=== PATIENT | male | born 1955 | race Caucasian/White ===

== ENCOUNTER 2019-06-26 13:12 | Outpatient (CLI) | payer MEDICARE, OTHER, SELFPAY | END 2019-06-26 13:13 | disposition home or self-care (01) | LOC: ONCMED 13:12 | PROVIDERS: Visit Provider Internal Medicine Medical Oncology | DX: Z45.2 Encounter for adjustment and management of vascular access device (principal) | CPT/HCPCS: 96523 ==

== ENCOUNTER 2019-07-28 11:08 | Outpatient (CLI) | payer MEDICARE, OTHER, SELFPAY ==
[2019-07-28 11:46] LABS: Basophils # 0.1 10^3/uL (0.0-0.1); Basophils % 1.3 %; Eosinophils # 1.3 10^3/uL (0.0-0.8); Eosinophils % 18.2 %; Hematocrit 39.8 % (42.0-52.0); Hemoglobin 13.5 g/dL (11.7-16.6); Lymphocytes # 1.8 10^3/uL (0.8-4.8); Lymphocytes % 26.1 %; Mean Corpuscular HGB Conc 33.9 g/dL (30.0-36.0); Mean Corpuscular Hemoglobin 31.3 pg (28.0-34.0); Mean Corpuscular Volume 92.1 fL (80-94); Mean Platelet Volume 12.5 fL (7.4-10.4); Monocytes # 0.6 10^3/uL (0.2-0.9); Neutrophils # 3.1 10^3/uL (1.8-7.7); Neutrophils % 45.1 %; Nucleated Red Blood Cells % 0 %; Platelet Count 94 10^3/cmm (130-400); Red Blood Count 4.32 10^6/uL (4.1-5.3); Red Cell Distribution Width 12.3 % (12.1-15.1); White Blood Count 6.9 10^3/uL (4.0-10.0)
[2019-07-28 11:52] LABS: Alanine Aminotransferase 21 U/L (0-41); Albumin Level 3.8 g/dL (3.5-5.2); Alkaline Phosphatase 118 IU/L (40-130); Anion Gap 15.3 (5-19); Aspartate Amino Transferase 19 U/L (0-40); Blood Urea Nitrogen 24 mg/dL (8-23); Calcium 9.1 mg/dL (8.5-10.5); Carbon Dioxide 24 mmol/L (22-29); Chloride 102 mmol/L (98-107); Globulin 3.1 g/dL (1.3-4.6); Glomerular Filtration Rate 50.7 mL/min (90-130); Glucose 87 mg/dL (65-115); Potassium 4.3 mmol/L (3.5-5.1); Sodium 137 mmol/L (136-145); Total Bilirubin 0.4 mg/dL (0.15-1.2); Total Protein 6.9 g/dL (6.6-8.7)
[2019-07-28 12:18] LABS: Slide Review Slide Review Perform
[2019-07-28 12:40] LABS: Carcinoembryonic Antigen 3.3 ng/mL (0.0-4.7)
--- NOTE | 2019-07-29 06:56 | ONC FU_ITS ---
Dr. Lyman Patient Follow-Up Note Patient: Elio Squires Unit #: [id number]: 1955 Dicatated By: Mario Lyman M.D.Date of Visit:Jul 28, 2019 Onc Med Follow-up/Prog Note Chief Complaint: Rectal cancer. History of Present Illness: This is a 64 year-old man with metastatic rectal cancer, stage KAITLIN (ypT3, ypN0, ypM1a). Microsatellite instability studies were performed and his tumor showed normal expression of DNA mismatch repair proteins. He had multiple liver metastases at initial presentation in September of 2008. He had a very good response to initial chemotherapy with FOLFOX/Avastin. In February of 2009 he underwent laparoscopic low anterior resection with left hepatic lobectomy. Pathology showed invasive moderately differentiated adenocarcinoma of the rectum which was invading through the muscularis propria into the subserosa more than 5 mm beyond the border of the muscularis propria. It measured 3 x 2.5 x 0.6 cm. There was no involvement in 29 lymph nodes. The left hepatic lobectomy showed metastatic colonic adenocarcinoma. He did receive additional chemotherapy postoperatively, and he also underwent additional treatment to the liver, which included microwave ablation and wedge resection. He subsequently underwent several chemoembolization procedures. He started second line chemotherapy with FOLFIRI/Avastin in April of 2011 after he was again showing evidence of disease progression in the liver. He had a good response by CEA level and by followup CT scan. We had subsequently changed his treatment to an irinotecan/Xeloda regimen, still in combination with Avastin. He did have a dose reduction in the Xeloda with the second cycle due to diarrhea and hand/foot syndrome. He had then tolerated treatment well with the irinotecan dosed every 4 weeks and the Xeloda administered on a 7 days on/7 days off schedule. However, he eventually did have more side effects with the Xeloda, even with further dose reductions. As of September 2013 the Xeloda was omitted, and he then continued treatment with irinotecan every 4 weeks and Avastin on a 2-week dosing schedule. His restaging CT chest, abdomen, and pelvis on 11/03/2016 reported new subcentimeter noncalcified pulmonary nodules in the upper lobes bilaterally which were new from a prior study in 2008. The abdomen showed a right lateral hepatic sub-capsular 14 mm low-attenuation lesion of uncertain significance. Metastasis could not be excluded. There was no other evidence of disease progression, and he continued the same treatment. He began cycle 55 of irinotecan/Avastin on 01/02/2017. At that time we discussed options for his further treatment. Given his long period of stability, we opted to stop the chemotherapy and just continue treatment with single agent Avastin at a 3-week dosing interval. He began the first cycle of single agent Avastin on 01/16/2017. He then continued the Avastin on a 3-week dosing schedule. His treatment has been complicated by hypertension, which is being managed adequately with medication. He has no other underlying medical illnesses. INTERIM HISTORY: Restaging CT scans of the chest, abdomen, and pelvis on 10/11/2017 showed multilobar calcified and noncalcified pulmonary nodules which appeared stable compared to a previous study from November 2015. There was evidence of prior partial hepatectomy with no interval change. A hypodensity in the subcapsular right hepatic lobe appeared stable. Overall, there was no evidence of disease progression. He continued his treatment with single agent Avastin. Beginning in August 2017 there was an increase in his creatinine to 1.3 mg/dL, and it continued to gradually increase thereafter, up to a maximum 1.6 mg/dL on 12/10/2017, at which point his Avastin was put on hold. His blood pressure during that time had been well controlled. As of 03/27/2018 the creatinine was back down to 1.3 mg/dL. His CEA was stable at 2.5 ng/mL. However, at that point there was a significant increase in his liver enzymes. His CT abdomen/pelvis on 04/03/2018 showed no evidence of recurrent or metastatic disease, and he continued on observation/expectant management. During subsequent follow-up there was a slight further increase in the CEA level, but his clinical status remained stable and the CEA level had subsequently stabilized. He is seen for a follow-up visit. He has been feeling good generally. He has good energy and he has normal activity. His appetite has been good. He has had a significant weight gain, in the range of 10 pounds. He does not have fever or night sweats. He has no shortness of breath, cough, or chest pain. He does report that his feet sometimes swell. He has no GI or complaints. He has no significant joint or bone pain. He has no focal neurologic symptoms. Medications: Aspirin 1 (81 mg) Tablet Oral daily, Lisinopril 1 Tablet (of 40 mg) Oral daily, Metoprolol Tartrate 1 (50 mg) Tablet Oral b.i.d., Omeprazole 1 Tablet (of 20 mg) Tablet, enteric coated Oral daily Allergies: No Known Allergies. Review of Systems: Constitutional - He has good energy and he has normal activity. Appetite has been good. He has been gaining weight. He does not have fever or night sweats. ECOG score is 0, ENMT - No sinus congestion/drainage. No mouth sores. No sore throat or difficulty swallowing, Hematologic/Lymphatic - No abnormal bruising or bleeding, Respiratory - No shortness of breath. No cough. No pleuritic pain or hemoptysis, Cardiovascular - No angina pain. No palpitations. His feet swell up sometimes, Gastrointestinal - No nausea or vomiting. No heartburn or acid reflux. No diarrhea or constipation. No blood in the stool or black stools, Genitourinary (M) - No dysuria or hematuria. No urinary frequency. No urgency or incontinence, Musculoskeletal - No joint or bone pain, Integumentary - No skin complications, Neurologic - No headache or dizziness. No numbness/paresthesias or other focal neurologic symptoms, Psychiatric - No anxiety or depression. No insomnia. Vital Signs: Performed on Jul 28, 2019 12:18 Height - 68.00 in Weight - 216.4 lbs (HIGH) BSA - 2.11 sq.m BMI - 32.90 (HIGH) Temperature - 97.3 F (LOW) Pulse - 64 /min Respiration - 17 /min BP - 147/89 mm(hg) (HIGH) O2 Sat - 99 % Pain - 0 Physical Examination: Constitutional - He looks good generally, Eyes - Sclerae nonicteric. Conjunctivae clear, ENMT - No lesions noted in the oral cavity, Hematologic/Lymphatic - No cervical, clavicular, or axillary adenopathy, Respiratory - Lungs are clear with good air movement bilaterally, Cardiovascular - Heart rhythm is regular. There is no murmur, gallop, or rub noted, Abdomen - Mildly distended but soft. Liver and spleen are not enlarged. There is no abdominal mass or ascites noted and there is no inguinal adenopathy, Extremities - No edema, Integumentary - There is a small raised lesion near the nasolabial fold on the right side there are 2 closely adjacent lesions with a similar appearance located on the left side of the chin. The lesions on the chin have slightly raised border, Neurologic - No focal neurologic deficits noted. Lab/Imaging: Test performed on Jul 28, 2019 11:27 Sodium 137 mmol/L Potassium 4.3 mmol/L Chloride 102 mmol/L CO2 24 mmol/L Anion Gap 15.3 BUN 24 mg/dL Creatinine 1.4 mg/dL Cr Clearance (Est) 72.06 mL/min eGFR 50.7 mL/min Glucose 87 mg/dL Calcium 9.1 mg/dL Protein, Total 6.9 g/dL Albumin 3.8 g/dL Globulin 3.1 g/dL Bilirubin, Total 0.4 mg/dL ALT (SGPT) 21 U/L AST (SGOT) 19 U/L Alkaline Phosphatase 118 IU/L WBC 6.9 10 3/uL RBC 4.32 10 6/uL HGB 13.5 g/dL HCT 39.8 % MCV 92.1 fL MCH 31.3 pg MCHC 33.9 g/dL RDW 12.3 % Platelet Count 94 10 3/cmm MPV 12.5 fL Neutrophils 3.1 10 3/uL Lymphocytes 1.8 10 3/uL Monocytes 0.6 10 3/uL Eosinophils 1.3 10 3/uL Basophils 0.1 10 3/uL Neutrophil % 45.1 % Lymphocyte % 26.1 % Monocyte % 9.0 % Eosinophil % 18.2 % Basophils % 1.3 % CBC Slide Review Slide Review Perform SLIDE REVIEW AGREES WITH AUTOMATED RESULTS ST CEA 3.3 ng/mL Impression: 1. The patient has metastatic rectal cancer, diagnosed in September 2008. He had a very good response to initial chemotherapy with FOLFOX/Avastin. 2. He underwent laparoscopic low anterior resection with left hepatic lobectomy in February 2009. Pathology showed moderately differentiated adenocarcinoma measuring 3 x 2.5 x 0.6 cm with invasion into the subserosa. There was no involvement in 29 lymph nodes. Final staging was ypT3, ypN0, ypM1a. 3. He received additional postoperative chemotherapy as well as liver directed therapy, including microwave ablation, wedge resection, and several chemoembolization procedures. 4. In April 2011 he began second line chemotherapy with FOLFIRI/Avastin due to disease progression in the liver. He did have a good response. 5. Treatment was changed to irinotecan/Xeloda in combination with Avastin due to side effects. He had tolerated it well initially, though he continued to have symptoms of hand/foot syndrome and diarrhea even at a reduced dosage of the Xeloda. The Xeloda was discontinued, and as of September 2013 his treatment was limited to just irinotecan and Avastin. 6. He developed significant hypertension on Avastin, but it has been well controlled on medication. As of 01/02/2017 he had completed 55 cycles of treatment with irinotecan/Avastin. His restaging CT scans in October 2016 reported some new small pulmonary nodules, but the comparison was to a previous study from 2008. Similar findings had been reported on interim studies done in [place] in June 2015. When compared directly, all of the findings on the 11/03/2016 study appeared stable. Given his long period of stability, we opted to drop the irinotecan and just continue treatment with single agent Avastin at a 3-week dosing interval, cycle 1 beginning 01/16/2017. As of 10/11/[address] scans had shown no evidence of recurrence/progression of the rectal cancer. However, beginning in August 2017 there was a gradual increase in his serum creatinine. It reached a maximum of 1.6 mg/dL on 12/10/2017, at which point his Avastin was put on hold. During this time, his blood pressure had remained well controlled, and his overall clinical status had remained stable. During subsequent follow-up there was improvement in his renal function. However, as of 03/27/2018 there was a significant increase in his liver enzymes. His CT abdomen/pelvis showed no obvious recurrent or metastatic disease, and he continued on observation/expectant management. As of his follow-up visit on 08/06/2018 the liver enzymes were elevated, but there was no increase in the CEA level and he otherwise appeared stable clinically. His liver enzymes subsequently came back down to normal. During follow-up his renal function remained stable. There was a slight gradual increase in the CEA level, but it had subsequently stabilized. Overall, he has continued to do well clinically with no evidence of recurrence/progression of the rectal cancer. Plan: He remains on observation/expectant management for the rectal cancer. He will be scheduled for a follow-up visit in 3 months. Signed By: Mario Lyman M.D. <<Signature on File>>
== END 2019-07-28 11:09 | disposition home or self-care (01) ==
LOC: ONCMED 11:08
PROVIDERS: Visit Provider Internal Medicine Medical Oncology
DX: Z08 Encounter for follow-up examination after completed treatment for malignant neoplasm (principal); Z85.048 Personal history of other malignant neoplasm of rectum, rectosigmoid junction, and anus; I10 Essential (primary) hypertension; R97.0 Elevated carcinoembryonic antigen [CEA]; Z79.82 Long term (current) use of aspirin; Z92.21 Personal history of antineoplastic chemotherapy
CPT/HCPCS: 36591; 80053; 82378; 85025; G0463

== ENCOUNTER 2019-08-25 13:29 | Outpatient (CLI) | payer MEDICARE, OTHER, SELFPAY | END 2019-08-25 13:30 | disposition home or self-care (01) | LOC: ONCMED 13:32 | PROVIDERS: Visit Provider Internal Medicine Medical Oncology | DX: Z45.2 Encounter for adjustment and management of vascular access device (principal) | CPT/HCPCS: 96523 ==

== ENCOUNTER 2019-09-22 12:52 | Outpatient (CLI) | payer MEDICARE, OTHER, SELFPAY | END 2019-09-22 12:53 | disposition home or self-care (01) | LOC: ONCMED 12:52 | PROVIDERS: Visit Provider Nurse Practitioner | DX: Z45.2 Encounter for adjustment and management of vascular access device (principal) | CPT/HCPCS: 36593; 96374; 96523; J2997 ==

== ENCOUNTER 2019-10-20 11:16 | Outpatient (CLI) | payer MEDICARE, OTHER, SELFPAY ==
[2019-10-20 11:48] LABS: Basophils # 0.1 10^3/uL (0.0-0.1); Eosinophils # 0.4 10^3/uL (0.0-0.8); Eosinophils % 5.7 %; Hematocrit 42.9 % (42.0-52.0); Hemoglobin 14.2 g/dL (11.7-16.6); Lymphocytes # 1.9 10^3/uL (0.8-4.8); Lymphocytes % 26.5 %; Mean Corpuscular HGB Conc 33.1 g/dL (30.0-36.0); Mean Corpuscular Hemoglobin 31.3 pg (28.0-34.0); Mean Corpuscular Volume 94.7 fL (80-94); Mean Platelet Volume 11.7 fL (7.4-10.4); Monocytes # 0.7 10^3/uL (0.2-0.9); Monocytes % 9.7 %; Nucleated Red Blood Cells % 0 %; Platelet Count 205 10^3/cmm (130-400); Red Blood Count 4.53 10^6/uL (4.1-5.3); Red Cell Distribution Width 12.2 % (12.1-15.1)
[2019-10-20 12:20] LABS: Carcinoembryonic Antigen 4.5 ng/mL (0.0-4.7)
[2019-10-20 12:31] LABS: Alanine Aminotransferase 23 U/L (0-41); Albumin Level 3.9 g/dL (3.5-5.2); Alkaline Phosphatase 119 IU/L (40-130); Anion Gap 14.7 (5-19); Aspartate Amino Transferase 20 U/L (0-40); Blood Urea Nitrogen 12 mg/dL (8-23); Calcium 9.7 mg/dL (8.5-10.5); Carbon Dioxide 24 mmol/L (22-29); Chloride 102 mmol/L (98-107); Globulin 3.3 g/dL (1.3-4.6); Glomerular Filtration Rate 60.6 mL/min (90-130); Glucose 92 mg/dL (65-115); Osmolality Calculated 278 mOsm/kg (285-295); Potassium 4.7 mmol/L (3.5-5.1); Sodium 136 mmol/L (136-145); Total Bilirubin 0.4 mg/dL (0.15-1.2); Total Protein 7.2 g/dL (6.6-8.7)
--- NOTE | 2019-10-20 17:16 | ONC FU_ITS ---
Dr. Lyman Patient Follow-Up Note Patient: Elio Squires Unit #: [id number]: [id number] Dicatated By: Mario Lyman M.D.Date of Visit:October 20, 2019 Onc Med Follow-up/Prog Note Chief Complaint: Rectal cancer. History of Present Illness: This is a 64 year-old man with metastatic rectal cancer, stage KAITLIN (ypT3, ypN0, ypM1a). Microsatellite instability studies were performed and his tumor showed normal expression of DNA mismatch repair proteins. He had multiple liver metastases at initial presentation in September of 2008. He had a very good response to initial chemotherapy with FOLFOX/Avastin. In February of 2009 he underwent laparoscopic low anterior resection with left hepatic lobectomy. Pathology showed invasive moderately differentiated adenocarcinoma of the rectum which was invading through the muscularis propria into the subserosa more than 5 mm beyond the border of the muscularis propria. It measured 3 x 2.5 x 0.6 cm. There was no involvement in 29 lymph nodes. The left hepatic lobectomy showed metastatic colonic adenocarcinoma. He did receive additional chemotherapy postoperatively, and he also underwent additional treatment to the liver, which included microwave ablation and wedge resection. He subsequently underwent several chemoembolization procedures. He started second line chemotherapy with FOLFIRI/Avastin in April of 2011 after he was again showing evidence of disease progression in the liver. He had a good response by CEA level and by followup CT scan. We had subsequently changed his treatment to an irinotecan/Xeloda regimen, still in combination with Avastin. He did have a dose reduction in the Xeloda with the second cycle due to diarrhea and hand/foot syndrome. He had then tolerated treatment well with the irinotecan dosed every 4 weeks and the Xeloda administered on a 7 days on/7 days off schedule. However, he eventually did have more side effects with the Xeloda, even with further dose reductions. As of September 2013 the Xeloda was omitted, and he then continued treatment with irinotecan every 4 weeks and Avastin on a 2-week dosing schedule. His restaging CT chest, abdomen, and pelvis on 11/03/2016 reported new subcentimeter noncalcified pulmonary nodules in the upper lobes bilaterally which were new from a prior study in 2008. The abdomen showed a right lateral hepatic sub-capsular 14 mm low-attenuation lesion of uncertain significance. Metastasis could not be excluded. There was no other evidence of disease progression, and he continued the same treatment. He began cycle 55 of irinotecan/Avastin on 01/02/2017. At that time we discussed options for his further treatment. Given his long period of stability, we opted to stop the chemotherapy and just continue treatment with single agent Avastin at a 3-week dosing interval. He began the first cycle of single agent Avastin on 01/16/2017. He then continued the Avastin on a 3-week dosing schedule. His treatment has been complicated by hypertension, which is being managed adequately with medication. He has no other underlying medical illnesses. INTERIM HISTORY: Restaging CT scans of the chest, abdomen, and pelvis on 10/11/2017 showed multilobar calcified and noncalcified pulmonary nodules which appeared stable compared to a previous study from November 2015. There was evidence of prior partial hepatectomy with no interval change. A hypodensity in the subcapsular right hepatic lobe appeared stable. Overall, there was no evidence of disease progression. He continued his treatment with single agent Avastin. Beginning in August 2017 there was an increase in his creatinine to 1.3 mg/dL, and it continued to gradually increase thereafter, up to a maximum 1.6 mg/dL on 12/10/2017, at which point his Avastin was put on hold. His blood pressure during that time had been well controlled. As of 03/27/2018 the creatinine was back down to 1.3 mg/dL. His CEA was stable at 2.5 ng/mL. However, at that point there was a significant increase in his liver enzymes. His CT abdomen/pelvis on 04/03/2018 showed no evidence of recurrent or metastatic disease, and he continued on observation/expectant management. During subsequent follow-up there was a slight further increase in the CEA level, but his clinical status remained stable and the CEA level had subsequently stabilized. He is seen for a follow-up visit. He has been feeling good generally. He has pretty good energy. He has normal activity. ECOG score 0. His appetite is good. He has no fever or night sweats. He does complain that his nose runs and his eyes water a lot. He has no difficulty swallowing. He has no shortness of breath, cough, or chest pain. He has occasional heartburn, depending on what he eats. He has no other GI or complaints. He is not having much joint pain. He does not complain of headache or dizziness. He says his fingers occasionally tingle. He has no other residual neuropathy symptoms. Medications: Aspirin 1 (81 mg) Tablet Oral daily, Lisinopril 1 Tablet (of 40 mg) Oral daily, Meloxicam 1 Tablet (of 7.5 mg) Oral PRN, Metoprolol Tartrate 1 (50 mg) Tablet Oral b.i.d., Omeprazole 1 Tablet (of 20 mg) Tablet, enteric coated Oral daily Allergies: No Known Allergies. Review of Systems: Constitutional - He is generally feeling good and his energy is good. He has normal activity. His appetite is good and weight is down a few pounds. No fever, chills, hot flashes, or night sweats. ECOG score is 0, ENMT - He has seasonal allergies. No mouth sores. No sore throat or difficulty swallowing, Hematologic/Lymphatic - No abnormal bruising or bleeding, Respiratory - No shortness of breath. No cough. No pleuritic pain or hemoptysis, Cardiovascular - No angina pain. No palpitations, Gastrointestinal - No nausea or vomiting. He has occasional heartburn. No diarrhea or constipation. No blood in the stool or black stools, Genitourinary (M) - No dysuria or hematuria. No urinary frequency. No urgency or incontinence, Musculoskeletal - No joint or bone pain, Integumentary - No skin complications, Neurologic - No headache or dizziness. He has occasional tingling in his fingers, Psychiatric - No anxiety or depression. No insomnia. Vital Signs: Performed on October 20, 2019 12:47 Height - 68.00 in Weight - 214.4 lbs (LOW) BSA - 2.11 sq.m BMI - 32.60 (HIGH) Temperature - 97.9 F (LOW) Pulse - 61 /min Respiration - 20 /min BP - 159/90 mm(hg) (HIGH) O2 Sat - 99 % Pain - 0 Physical Examination: Constitutional - He looks good generally, Eyes - Sclerae nonicteric. Conjunctivae clear, ENMT - No lesions noted in the oral cavity, Hematologic/Lymphatic - No cervical, clavicular, or axillary adenopathy, Respiratory - Lungs are clear with good air movement bilaterally, Cardiovascular - Heart rhythm is regular. There is no murmur, gallop, or rub noted, Abdomen - Mildly distended but soft. Liver and spleen are not enlarged. There is no abdominal mass or ascites noted and there is no inguinal adenopathy, Extremities - No edema, Integumentary - There is a small raised lesion near the nasolabial fold on the right side there are 2 closely adjacent lesions with a similar appearance located on the left side of the chin. The appearance is similar to his last exam, Neurologic - No focal neurologic deficits noted. Lab/Imaging: Test performed on October 20, 2019 11:05 Sodium 136 mmol/L Potassium 4.7 mmol/L Chloride 102 mmol/L CO2 24 mmol/L Anion Gap 14.7 BUN 12 mg/dL Creatinine 1.2 mg/dL Cr Clearance (Est) 83.29 mL/min eGFR 60.6 mL/min Glucose 92 mg/dL Calcium 9.7 mg/dL Protein, Total 7.2 g/dL Albumin 3.9 g/dL Globulin 3.3 g/dL Bilirubin, Total 0.4 mg/dL ALT (SGPT) 23 U/L AST (SGOT) 20 U/L Alkaline Phosphatase 119 IU/L WBC 7.0 10 3/uL RBC 4.53 10 6/uL HGB 14.2 g/dL HCT 42.9 % MCV 94.7 fL MCH 31.3 pg MCHC 33.1 g/dL RDW 12.2 % Platelet Count 205 10 3/cmm MPV 11.7 fL Neutrophils 4.0 10 3/uL Lymphocytes 1.9 10 3/uL Monocytes 0.7 10 3/uL Eosinophils 0.4 10 3/uL Basophils 0.1 10 3/uL Neutrophil % 57.0 % Lymphocyte % 26.5 % Monocyte % 9.7 % Eosinophil % 5.7 % Basophils % 1.0 % CEA 4.5 ng/mL Impression: 1. The patient has metastatic rectal cancer, diagnosed in September 2008. He had a very good response to initial chemotherapy with FOLFOX/Avastin. 2. He underwent laparoscopic low anterior resection with left hepatic lobectomy in February 2009. Pathology showed moderately differentiated adenocarcinoma measuring 3 x 2.5 x 0.6 cm with invasion into the subserosa. There was no involvement in 29 lymph nodes. Final staging was ypT3, ypN0, ypM1a. 3. He received additional postoperative chemotherapy as well as liver directed therapy, including microwave ablation, wedge resection, and several chemoembolization procedures. 4. In April 2011 he began second line chemotherapy with FOLFIRI/Avastin due to disease progression in the liver. He did have a good response. 5. Treatment was changed to irinotecan/Xeloda in combination with Avastin due to side effects. He had tolerated it well initially, though he continued to have symptoms of hand/foot syndrome and diarrhea even at a reduced dosage of the Xeloda. The Xeloda was discontinued, and as of September 2013 his treatment was limited to just irinotecan and Avastin. 6. He developed significant hypertension on Avastin, but it has been well controlled on medication. As of 01/02/2017 he had completed 55 cycles of treatment with irinotecan/Avastin. His restaging CT scans in October 2016 reported some new small pulmonary nodules, but the comparison was to a previous study from 2008. Similar findings had been reported on interim studies done in [place] in June 2015. When compared directly, all of the findings on the 11/03/2016 study appeared stable. Given his long period of stability, we opted to drop the irinotecan and just continue treatment with single agent Avastin at a 3-week dosing interval, cycle 1 beginning 01/16/2017. As of 10/11/[address] scans had shown no evidence of recurrence/progression of the rectal cancer. However, beginning in August 2017 there was a gradual increase in his serum creatinine. It reached a maximum of 1.6 mg/dL on 12/10/2017, at which point his Avastin was put on hold. During this time, his blood pressure had remained well controlled, and his overall clinical status had remained stable. During subsequent follow-up there was improvement in his renal function. However, as of 03/27/2018 there was a significant increase in his liver enzymes. His CT abdomen/pelvis showed no obvious recurrent or metastatic disease, and he continued on observation/expectant management. As of his follow-up visit on 08/06/2018 the liver enzymes were elevated, but there was no increase in the CEA level and he otherwise appeared stable clinically. His liver enzymes subsequently came back down to normal. During follow-up his renal function remained stable. There was a slight gradual increase in the CEA level, but it had subsequently stabilized. Overall, he has continued to do well clinically with no evidence of recurrence/progression of the rectal cancer. Plan: He remains on observation/expectant management for the rectal cancer. He will be scheduled for a follow-up visit in 3 months. Signed By: Mario Lyman M.D. <<Signature on File>>
== END 2019-10-20 11:17 | disposition home or self-care (01) ==
PROVIDERS: Visit Provider Internal Medicine Medical Oncology
DX: Z85.048 Personal history of other malignant neoplasm of rectum, rectosigmoid junction, and anus; Z92.21 Personal history of antineoplastic chemotherapy; Z79.899 Other long term (current) drug therapy
CPT/HCPCS: 36591; 80053; 82378; 85025; G0463

== ENCOUNTER 2019-11-20 12:47 | Outpatient (CLI) | payer MEDICARE, OTHER, SELFPAY | END 2019-11-20 12:48 | disposition home or self-care (01) | LOC: ONCMED 12:50 | PROVIDERS: Visit Provider Internal Medicine Medical Oncology | DX: Z45.2 Encounter for adjustment and management of vascular access device (principal); C20 Malignant neoplasm of rectum; C78.7 Secondary malignant neoplasm of liver and intrahepatic bile duct; D70.1 Agranulocytosis secondary to cancer chemotherapy | CPT/HCPCS: 96523 ==

== ENCOUNTER 2019-12-19 11:14 | Outpatient (CLI) | payer MEDICARE, OTHER, SELFPAY | END 2019-12-19 11:15 | disposition home or self-care (01) | LOC: ONCMED 11:19 | PROVIDERS: Visit Provider Internal Medicine Medical Oncology | DX: Z45.2 Encounter for adjustment and management of vascular access device (principal); C20 Malignant neoplasm of rectum; C78.7 Secondary malignant neoplasm of liver and intrahepatic bile duct; D70.1 Agranulocytosis secondary to cancer chemotherapy; T45.1X5A Adverse effect of antineoplastic and immunosuppressive drugs, initial encounter | CPT/HCPCS: 96523 ==

== ENCOUNTER 2020-01-19 11:09 | Outpatient (CLI) | payer MEDICARE, OTHER, SELFPAY ==
[2020-01-19 11:46] LABS: Basophils # 0.1 10^3/uL (0.0-0.1); Eosinophils # 0.4 10^3/uL (0.0-0.8); Eosinophils % 5.3 %; Hematocrit 40.3 % (42.0-52.0); Hemoglobin 13.4 g/dL (11.7-16.6); Lymphocytes # 1.7 10^3/uL (0.8-4.8); Lymphocytes % 20.8 %; Mean Corpuscular HGB Conc 33.3 g/dL (30.0-36.0); Mean Corpuscular Hemoglobin 31.7 pg (28.0-34.0); Mean Corpuscular Volume 95.3 fL (80-94); Mean Platelet Volume 11.7 fL (7.4-10.4); Monocytes # 0.8 10^3/uL (0.2-0.9); Monocytes % 9.7 %; Neutrophils # 5.17 10^3/uL (1.8-7.7); Neutrophils % 62.8 %; Nucleated Red Blood Cells % 0 %; Platelet Count 190 10^3/cmm (130-400); Red Blood Count 4.23 10^6/uL (4.1-5.3); Red Cell Distribution Width 12.6 % (12.1-15.1); White Blood Count 8.2 10^3/uL (4.0-10.0)
[2020-01-19 12:20] LABS: Carcinoembryonic Antigen 4.1 ng/mL (0.0-4.7)
[2020-01-19 12:32] LABS: Alanine Aminotransferase 18 U/L (0-41); Albumin Level 3.7 g/dL (3.5-5.2); Alkaline Phosphatase 110 IU/L (40-130); Anion Gap 10.2 (5-19); Aspartate Amino Transferase 15 U/L (0-40); Blood Urea Nitrogen 16 mg/dL (8-23); Calcium 8.1 mg/dL (8.5-10.5); Carbon Dioxide 24 mmol/L (22-29); Chloride 103 mmol/L (98-107); Globulin 2.9 g/dL (1.3-4.6); Glucose 111 mg/dL (65-115); Osmolality Calculated 273 mOsm/kg (285-295); Potassium 4.2 mmol/L (3.5-5.1); Sodium 133 mmol/L (136-145); Total Bilirubin 0.4 mg/dL (0.15-1.2); Total Protein 6.6 g/dL (6.6-8.7)
--- NOTE | 2020-01-20 07:28 | ONC FU_ITS ---
Dr. Lyman Patient Follow-Up Note Patient: Elio Squires Unit #: [id number]: 1955 Dicatated By: Mario Lyman M.D.Date of Visit:Jan 19, 2020 Onc Med Follow-up/Prog Note Chief Complaint: Rectal cancer. History of Present Illness: This is a 64 year-old man with metastatic rectal cancer, stage KAITLIN (ypT3, ypN0, ypM1a). Microsatellite instability studies were performed and his tumor showed normal expression of DNA mismatch repair proteins. He had multiple liver metastases at initial presentation in September of 2008. He had a very good response to initial chemotherapy with FOLFOX/Avastin. In February of 2009 he underwent laparoscopic low anterior resection with left hepatic lobectomy. Pathology showed invasive moderately differentiated adenocarcinoma of the rectum which was invading through the muscularis propria into the subserosa more than 5 mm beyond the border of the muscularis propria. It measured 3 x 2.5 x 0.6 cm. There was no involvement in 29 lymph nodes. The left hepatic lobectomy showed metastatic colonic adenocarcinoma. He did receive additional chemotherapy postoperatively, and he also underwent additional treatment to the liver, which included microwave ablation and wedge resection. He subsequently underwent several chemoembolization procedures. He started second line chemotherapy with FOLFIRI/Avastin in April of 2011 after he was again showing evidence of disease progression in the liver. He had a good response by CEA level and by followup CT scan. We had subsequently changed his treatment to an irinotecan/Xeloda regimen, still in combination with Avastin. He did have a dose reduction in the Xeloda with the second cycle due to diarrhea and hand/foot syndrome. He had then tolerated treatment well with the irinotecan dosed every 4 weeks and the Xeloda administered on a 7 days on/7 days off schedule. However, he eventually did have more side effects with the Xeloda, even with further dose reductions. As of September 2013 the Xeloda was omitted, and he then continued treatment with irinotecan every 4 weeks and Avastin on a 2-week dosing schedule. His restaging CT chest, abdomen, and pelvis on 11/03/2016 reported new subcentimeter noncalcified pulmonary nodules in the upper lobes bilaterally which were new from a prior study in 2008. The abdomen showed a right lateral hepatic sub-capsular 14 mm low-attenuation lesion of uncertain significance. Metastasis could not be excluded. There was no other evidence of disease progression, and he continued the same treatment. He began cycle 55 of irinotecan/Avastin on 01/02/2017. At that time we discussed options for his further treatment. Given his long period of stability, we opted to stop the chemotherapy and just continue treatment with single agent Avastin at a 3-week dosing interval. He began the first cycle of single agent Avastin on 01/16/2017. He then continued the Avastin on a 3-week dosing schedule. Restaging CT scans of the chest, abdomen, and pelvis on 10/11/2017 showed multilobar calcified and noncalcified pulmonary nodules which appeared stable compared to a previous study from November 2015. There was evidence of prior partial hepatectomy with no interval change. A hypodensity in the subcapsular right hepatic lobe appeared stable. Overall, there was no evidence of disease progression. He continued his treatment with single agent Avastin. Beginning in August 2017 there was an increase in his creatinine to 1.3 mg/dL, and it continued to gradually increase thereafter, up to a maximum 1.6 mg/dL on 12/10/2017, at which point his Avastin was put on hold. His blood pressure during that time had been well controlled. As of 03/27/2018 the creatinine was back down to 1.3 mg/dL. His CEA was stable at 2.5 ng/mL. However, at that point there was a significant increase in his liver enzymes. His CT abdomen/pelvis on 04/03/2018 showed no evidence of recurrent or metastatic disease, and he continued on observation/expectant management. During subsequent follow-up there was a slight further increase in the CEA level, but his clinical status remained stable and the CEA level had subsequently stabilized. His treatment has been complicated by hypertension, which is being managed adequately with medication. He has no other underlying medical illnesses. INTERIM HISTORY: He is seen for a follow-up visit. He has been feeling good generally. He has normal energy and activity tolerance. ECOG score is 0. His appetite is good. He has no fever or night sweats. He has no shortness of breath, cough, or chest pain. He currently he has no GI or complaints. He occasionally has a little pain in his lower back. He has no other joint or bone pain. His fingers occasionally tingle. He has no other residual neuropathy. Medications: Aspirin 1 (81 mg) Tablet Oral daily, Lisinopril 1 Tablet (of 40 mg) Oral daily, Meloxicam 1 Tablet (of 7.5 mg) Oral PRN, Metoprolol Tartrate 1 (50 mg) Tablet Oral b.i.d., Omeprazole 1 Tablet (of 20 mg) Tablet, enteric coated Oral daily Allergies: No Known Allergies. Review of Systems: Constitutional - He has good energy and activity tolerance. Appetite is good. His weight is down a little. No fever or night sweats. ECOG score is 0, ENMT - No sinus congestion/drainage. No mouth sores. No sore throat or difficulty swallowing, Hematologic/Lymphatic - No abnormal bruising or bleeding, Respiratory - No shortness of breath. No cough. No pleuritic pain or hemoptysis, Cardiovascular - No angina pain. No palpitations, Gastrointestinal - No nausea or vomiting. No heartburn or acid reflux. No diarrhea or constipation. No blood in the stool or black stools, Genitourinary (M) - No dysuria or hematuria. No urinary frequency. No urgency or incontinence, Musculoskeletal - He occasionally has a little back pain. No other joint or bone pain, Integumentary - No skin rash, Neurologic - No headache or dizziness. He occasionally has a little tingling in his fingers. He has no other residual neuropathy, Psychiatric - No anxiety or depression. No insomnia. Vital Signs: Performed on Jan 19, 2020 12:29 Height - 68.00 in Weight - 207.6 lbs (LOW) BSA - 2.08 sq.m BMI - 31.57 (HIGH) Temperature - 97.2 F (LOW) Pulse - 55 /min (LOW) Respiration - 18 /min BP - 137/84 mm(hg) O2 Sat - 99 % Pain - 0 Physical Examination: Constitutional - He looks good generally, Eyes - Sclerae nonicteric. Conjunctivae clear, ENMT - No lesions noted in the oral cavity, Hematologic/Lymphatic - No cervical, clavicular, or axillary adenopathy, Respiratory - Lungs are clear with good air movement bilaterally, Cardiovascular - Heart rhythm is regular. There is no murmur, gallop, or rub noted, Abdomen - Soft. Liver and spleen are not enlarged. There is no abdominal mass or ascites noted and there is no inguinal adenopathy, Extremities - No edema, Neurologic - No focal neurologic deficits noted. Lab/Imaging: Test performed on Jan 19, 2020 11:24 Sodium 133 mmol/L Potassium 4.2 mmol/L Chloride 103 mmol/L CO2 24 mmol/L Anion Gap 10.2 BUN 16 mg/dL Creatinine 1.1 mg/dL Cr Clearance (Est) 87.9800 mL/min eGFR 67.0 mL/min Glucose 111 mg/dL Calcium 8.1 mg/dL Protein, Total 6.6 g/dL Albumin 3.7 g/dL Globulin 2.9 g/dL Bilirubin, Total 0.4 mg/dL ALT (SGPT) 18 U/L AST (SGOT) 15 U/L Alkaline Phosphatase 110 IU/L WBC 8.2 10 3/uL RBC 4.23 10 6/uL HGB 13.4 g/dL HCT 40.3 % MCV 95.3 fL MCH 31.7 pg MCHC 33.3 g/dL RDW 12.6 % Platelet Count 190 10 3/cmm MPV 11.7 fL Neutrophils 5.17 10 3/uL Lymphocytes 1.7 10 3/uL Monocytes 0.8 10 3/uL Eosinophils 0.4 10 3/uL Basophils 0.1 10 3/uL Neutrophil % 62.8 % Lymphocyte % 20.8 % Monocyte % 9.7 % Eosinophil % 5.3 % Basophils % 1.0 % NRBC % 0 % CEA 4.1 ng/mL Impression: 1. The patient has metastatic rectal cancer, diagnosed in September 2008. He had a very good response to initial chemotherapy with FOLFOX/Avastin. 2. He underwent laparoscopic low anterior resection with left hepatic lobectomy in February 2009. Pathology showed moderately differentiated adenocarcinoma measuring 3 x 2.5 x 0.6 cm with invasion into the subserosa. There was no involvement in 29 lymph nodes. Final staging was ypT3, ypN0, ypM1a. 3. He received additional postoperative chemotherapy as well as liver directed therapy, including microwave ablation, wedge resection, and several chemoembolization procedures. 4. In April 2011 he began second line chemotherapy with FOLFIRI/Avastin due to disease progression in the liver. He did have a good response. 5. Treatment was changed to irinotecan/Xeloda in combination with Avastin due to side effects. He had tolerated it well initially, though he continued to have symptoms of hand/foot syndrome and diarrhea even at a reduced dosage of the Xeloda. The Xeloda was discontinued, and as of September 2013 his treatment was limited to just irinotecan and Avastin. 6. He developed significant hypertension on Avastin, but it has been well controlled on medication. As of 01/02/2017 he had completed 55 cycles of treatment with irinotecan/Avastin. His restaging CT scans in October 2016 reported some new small pulmonary nodules, but the comparison was to a previous study from 2008. Similar findings had been reported on interim studies done in [place] in June 2015. When compared directly, all of the findings on the 11/03/2016 study appeared stable. Given his long period of stability, we opted to drop the irinotecan and just continue treatment with single agent Avastin at a 3-week dosing interval, cycle 1 beginning 01/16/2017. As of 10/11/[address] scans had shown no evidence of recurrence/progression of the rectal cancer. However, beginning in August 2017 there was a gradual increase in his serum creatinine. It reached a maximum of 1.6 mg/dL on 12/10/2017, at which point his Avastin was put on hold. During this time, his blood pressure had remained well controlled, and his overall clinical status had remained stable. During subsequent follow-up there was improvement in his renal function. However, as of 03/27/2018 there was a significant increase in his liver enzymes. His CT abdomen/pelvis showed no obvious recurrent or metastatic disease, and he continued on observation/expectant management. As of his follow-up visit on 08/06/2018 the liver enzymes were elevated, but there was no increase in the CEA level and he otherwise appeared stable clinically. His liver enzymes subsequently came back down to normal. During follow-up his renal function remained stable. There was a slight gradual increase in the CEA level, but it has stabilized. Overall, he continues to do very well clinically with no evidence of recurrence/progression of the rectal cancer. Plan: He remains on observation/expectant management for the rectal cancer. He will be scheduled for a follow-up visit in 3 months. He will have restaging CT scans prior to that visit, as it will be a 2-year interval from his last CT scans. Signed By: Mario Lyman M.D. <<Signature on File>>
== END 2020-01-19 11:10 | disposition home or self-care (01) ==
LOC: ONCMED 11:09
PROVIDERS: Visit Provider Internal Medicine Medical Oncology
DX: Z08 Encounter for follow-up examination after completed treatment for malignant neoplasm (principal); Z85.048 Personal history of other malignant neoplasm of rectum, rectosigmoid junction, and anus; C78.7 Secondary malignant neoplasm of liver and intrahepatic bile duct; I10 Essential (primary) hypertension
CPT/HCPCS: 36591; 80053; 82378; 85025; G0463

== ENCOUNTER 2020-02-19 11:41 | Outpatient (CLI) | payer MEDICARE, OTHER, SELFPAY ==
[2020-02-19] MEDS: alteplase 1 mg/mL SDV 2 mL 2 MG IV (14:43)
== END 2020-02-19 11:42 | disposition home or self-care (01) ==
LOC: ONCMED 11:41
PROVIDERS: Visit Provider Internal Medicine Medical Oncology
DX: C20 Malignant neoplasm of rectum (principal); C78.7 Secondary malignant neoplasm of liver and intrahepatic bile duct; D70.1 Agranulocytosis secondary to cancer chemotherapy; T45.1X5A Adverse effect of antineoplastic and immunosuppressive drugs, initial encounter
CPT/HCPCS: 36593; 96374; J2997

== ENCOUNTER 2020-03-19 11:08 | Outpatient (CLI) | payer MEDICARE, OTHER, SELFPAY | END 2020-03-19 11:09 | disposition home or self-care (01) | LOC: ONCMED 11:12 | PROVIDERS: Visit Provider Internal Medicine Medical Oncology | DX: Z45.2 Encounter for adjustment and management of vascular access device (principal) | CPT/HCPCS: 96523 ==

== ENCOUNTER 2020-04-16 08:54 | Outpatient (CLI) | payer MEDICARE, OTHER, SELFPAY ==
--- NOTE | 2020-04-16 09:00 | CT_ITS ---
WS: [id number] CT scan of the chest With IV contrast, CT scan of the abdomen and pelvis with IV contrast and oral contrast. Additional two-dimensional coronal and sagittal reconstruction was performed. 04/16/2020 Clinical Data: RECTAL CANCER Comparison: CT abdomen and pelvis, 04/03/2018. CT chest abdomen pelvis, 10/11/2017. DLP: 2552.[address] scans at [facility] use at least one of these dose optimization techniques: automat ed exposure control; mA and/or kV adjustment per patient size (includes targeted exams where dose is matched to clinical indication); or iterative reconstruction. Findings: Chest: No masses or effusions are seen. There is a right middle lobe nodule measuring 0.6 cm seen best on ax ial image 33 of 67. There are other small calcified and noncalcified nodules. However there is a new nodule in the lingula adjacent to the left cardiac border measuring 1.7 cm with irregular borders, se en best on axial image 44 of 67. This lingular lesion could represent a primary carcinoma or metastat ic disease No pneumonia or pneumothorax is seen. The heart size is normal with no pericardial effusion. The trachea bifurcates normally into the bronc hi. The pulmonary arterial system and thoracic aorta demonstrate no abnormalities or dilatations. There is no axillary or significant mediastinal adenopathy. The thyroid gland shows normal enhancemen t. The bony thorax shows only osteoarthritic change of the vertebral bodies but no metastatic disease . Abdomen/pelvis: The left lobe resection of the liver remains unchanged. There is a low density lesion in the peripher y of the right lobe measuring 1.5 cm unchanged. No other lesions are seen within the liver. The gallb ladder is absent. The spleen, adrenal glands and pancreas are normal. The kidneys show equal bilateral contrast excretion with small cortical cysts bilaterally. No masses, hydronephrosis or renal calculi are seen. There are 2 right renal arteries. The abdominal aorta is normal in size with minimal calcification in the wall.. No appendicitis or diverticulitis is seen. Oral contrast is in the stomach, small bowel and colon, an d there is no bowel dilatation. No abscess, adenopathy, ascites, mass, obstruction or free air is see n. The bladder is unremarkable. The prostate is enlarged No inguinal hernia is seen. The bones of the lower thorax, lumbar spine, pelvis, and hips show no metastatic disease. There is de generative change and degenerative disc disease at multiple levels of the lumbar spine.. CT/CT chest abd pel w con* Impression: 1. New nodule in lingula of left lobe of the liver measuring 1.7 cm and recomme nd further follow-up, perhaps PET scan. 2. Multiple small nodules throughout the lungs unchanged. 3. No change in resection of left lobe of the liver and peripheral low density lesion of the right lobe.
[2020-04-16] MEDS: iohexol 300 mg/mL 50 mL Btl PO (09:22)
[2020-04-16 10:33] LABS: Blood Urea Nitrogen 17 mg/dL (8-23); Glomerular Filtration Rate 60.6 mL/min (90-130)
[2020-04-16] MEDS: iohexol 300 mg/mL 100 mL Btl IV (10:40)
== END 2020-04-16 08:55 | disposition home or self-care (01) ==
LOC: RADWPI 09:00
PROVIDERS: PCP Internal Medicine Medical Oncology; Visit Provider Internal Medicine Medical Oncology
DX: C20 Malignant neoplasm of rectum (principal); R91.8 Other nonspecific abnormal finding of lung field
CPT/HCPCS: 71260; 74177; 82565; 84520; Q9967

== ENCOUNTER 2020-04-20 06:09 | Outpatient (CLI) | payer MEDICARE, OTHER, SELFPAY ==
[2020-04-20 12:01] LABS: Basophils # 0.1 10^3/uL (0.0-0.1); Basophils % 1.2 %; Eosinophils # 0.5 10^3/uL (0.0-0.8); Eosinophils % 4.2 %; Hematocrit 42.7 % (42.0-52.0); Hemoglobin 14.5 g/dL (11.7-16.6); Lymphocytes # 1.8 10^3/uL (0.8-4.8); Lymphocytes % 16.7 %; Mean Corpuscular Hemoglobin 31.9 pg (28.0-34.0); Mean Corpuscular Volume 94.1 fL (80-94); Mean Platelet Volume 11.5 fL (7.4-10.4); Monocytes # 0.9 10^3/uL (0.2-0.9); Monocytes % 8.3 %; Neutrophils # 7.44 10^3/uL (1.8-7.7); Neutrophils % 69.2 %; Nucleated Red Blood Cells % 0 %; Platelet Count 181 10^3/cmm (130-400); Red Blood Count 4.54 10^6/uL (4.1-5.3); Red Cell Distribution Width 11.9 % (12.1-15.1); White Blood Count 10.7 10^3/uL (4.0-10.0)
[2020-04-20 12:22] LABS: Alanine Aminotransferase 27 U/L (0-41); Albumin Level 3.7 g/dL (3.5-5.2); Alkaline Phosphatase 114 IU/L (40-130); Anion Gap 14.2 (5-19); Aspartate Amino Transferase 22 U/L (0-40); Blood Urea Nitrogen 20 mg/dL (8-23); Calcium 8.8 mg/dL (8.5-10.5); Carbon Dioxide 24 mmol/L (22-29); Chloride 101 mmol/L (98-107); Globulin 2.9 g/dL (1.3-4.6); Glucose 108 mg/dL (65-115); Osmolality Calculated 283 mOsm/kg (285-295); Potassium 4.2 mmol/L (3.5-5.1); Sodium 135 mmol/L (136-145); Total Bilirubin 0.3 mg/dL (0.15-1.2); Total Protein 6.6 g/dL (6.6-8.7)
--- NOTE | 2020-04-20 16:55 | ONC FU_ITS ---
Dr. Lyman Patient Follow-Up Note Patient: Elio Squires Unit #: [id number]: 1955 Dicatated By: Mario Lyman M.D.Date of Visit:Apr 20, 2020 Onc Med Follow-up/Prog Note Chief Complaint: Rectal cancer. History of Present Illness: This is a 64 year-old man with metastatic rectal cancer, stage KAITLIN (ypT3, ypN0, ypM1a). Microsatellite instability studies were performed and his tumor showed normal expression of DNA mismatch repair proteins. He had multiple liver metastases at initial presentation in September of 2008. He had a very good response to initial chemotherapy with FOLFOX/Avastin. In February of 2009 he underwent laparoscopic low anterior resection with left hepatic lobectomy. Pathology showed invasive moderately differentiated adenocarcinoma of the rectum which was invading through the muscularis propria into the subserosa more than 5 mm beyond the border of the muscularis propria. It measured 3 x 2.5 x 0.6 cm. There was no involvement in 29 lymph nodes. The left hepatic lobectomy showed metastatic colonic adenocarcinoma. He did receive additional chemotherapy postoperatively, and he also underwent additional treatment to the liver, which included microwave ablation and wedge resection. He subsequently underwent several chemoembolization procedures. He started second line chemotherapy with FOLFIRI/Avastin in April of 2011 after he was again showing evidence of disease progression in the liver. He had a good response by CEA level and by followup CT scan. We had subsequently changed his treatment to an irinotecan/Xeloda regimen, still in combination with Avastin. He did have a dose reduction in the Xeloda with the second cycle due to diarrhea and hand/foot syndrome. He had then tolerated treatment well with the irinotecan dosed every 4 weeks and the Xeloda administered on a 7 days on/7 days off schedule. However, he eventually did have more side effects with the Xeloda, even with further dose reductions. As of September 2013 the Xeloda was omitted, and he then continued treatment with irinotecan every 4 weeks and Avastin on a 2-week dosing schedule. His restaging CT chest, abdomen, and pelvis on 11/03/2016 reported new subcentimeter noncalcified pulmonary nodules in the upper lobes bilaterally which were new from a prior study in 2008. The abdomen showed a right lateral hepatic sub-capsular 14 mm low-attenuation lesion of uncertain significance. Metastasis could not be excluded. There was no other evidence of disease progression, and he continued the same treatment. He began cycle 55 of irinotecan/Avastin on 01/02/2017. At that time we discussed options for his further treatment. Given his long period of stability, we opted to stop the chemotherapy and just continue treatment with single agent Avastin at a 3-week dosing interval. He began the first cycle of single agent Avastin on 01/16/2017. He then continued the Avastin on a 3-week dosing schedule. Restaging CT scans of the chest, abdomen, and pelvis on 10/11/2017 showed multilobar calcified and noncalcified pulmonary nodules which appeared stable compared to a previous study from November 2015. There was evidence of prior partial hepatectomy with no interval change. A hypodensity in the subcapsular right hepatic lobe appeared stable. Overall, there was no evidence of disease progression. He continued his treatment with single agent Avastin. Beginning in August 2017 there was an increase in his creatinine to 1.3 mg/dL, and it continued to gradually increase thereafter, up to a maximum 1.6 mg/dL on 12/10/2017, at which point his Avastin was put on hold. His blood pressure during that time had been well controlled. As of 03/27/2018 the creatinine was back down to 1.3 mg/dL. His CEA was stable at 2.5 ng/mL. However, at that point there was a significant increase in his liver enzymes. His CT abdomen/pelvis on 04/03/2018 showed no evidence of recurrent or metastatic disease, and he continued on observation/expectant management. During subsequent follow-up there was a slight further increase in the CEA level, but his clinical status remained stable and the CEA level had subsequently stabilized. His treatment has been complicated by hypertension, which is being managed adequately with medication. He has no other underlying medical illnesses. INTERIM HISTORY: His restaging CT scans of the chest, abdomen, and pelvis on 04/16/2020 showed a right middle lobe nodule measuring 0.6 cm as well as other small calcified and noncalcified nodules which all appeared unchanged. A new nodule was noted in the lingula of the left lobe adjacent to the cardiac border measuring 1.7 cm. There was no change in the appearance of the liver, and there was otherwise no evidence of disease progression. He is seen for a follow-up visit. He has been feeling okay. He has good energy and activity tolerance. ECOG score is 0. His appetite is good. He has not had fever. He occasionally has a little bit of sweating at night. He has no shortness of breath, cough, or chest pain. He has no GI or complaints. He occasionally has a little back pain. He has no other GI or complaints. He does not complain of headache or dizziness. He occasionally has a little bit of numbness/tingling. Medications: Aspirin 1 (81 mg) Tablet Oral daily, Lisinopril 1 Tablet (of 40 mg) Oral daily, Meloxicam 1 Tablet (of 7.5 mg) Oral PRN, Metoprolol Tartrate 1 (50 mg) Tablet Oral b.i.d., Omeprazole 1 Tablet (of 20 mg) Tablet, enteric coated Oral daily Allergies: No Known Allergies. Review of Systems: Constitutional - He has been feeling okay. He has good energy and he has normal activity. Appetite is good. He has not had fever. He occasionally has a little bit of night sweating. ECOG score is 0, ENMT - No sinus congestion/drainage. No mouth sores. No sore throat or difficulty swallowing, Hematologic/Lymphatic - No abnormal bruising or bleeding, Respiratory - No shortness of breath. No cough. No pleuritic pain or hemoptysis, Cardiovascular - No angina pain. No palpitations, Gastrointestinal - No nausea or vomiting. No heartburn or acid reflux. No diarrhea or constipation. No blood in the stool or black stools, Genitourinary (M) - No dysuria or hematuria. No urinary frequency. No urgency or incontinence, Musculoskeletal - He occasionally has a little back pain. He has no other joint or bone pain, Integumentary - No skin rash, Neurologic - No headache or dizziness. He occasionally has a little bit of numbness/tingling. No other focal neurologic symptoms, Psychiatric - No anxiety or depression. No insomnia. Vital Signs: Performed on Apr 20, 2020 13:02 Height - 68.00 in Weight - 216.8 lbs (HIGH) BSA - 2.12 sq.m BMI - 32.96 (HIGH) Temperature - 97.4 F (LOW) Pulse - 66 /min Respiration - 18 /min BP - 156/78 mm(hg) (HIGH) O2 Sat - 99 % Pain - 0 Physical Examination: Constitutional - He looks good generally, Eyes - Sclerae nonicteric. Conjunctivae clear, ENMT - No lesions noted in the oral cavity, Hematologic/Lymphatic - No cervical, clavicular, or axillary adenopathy, Respiratory - Lungs are clear with good air movement bilaterally, Cardiovascular - Heart rhythm is regular. There is no murmur, gallop, or rub noted, Abdomen - Soft. Liver and spleen are not enlarged. There is no abdominal mass or ascites noted and there is no inguinal adenopathy, Extremities - No edema, Neurologic - No focal neurologic deficits noted. Lab/Imaging: Test performed on Apr 20, 2020 11:40 Sodium 135 mmol/L Potassium 4.2 mmol/L Chloride 101 mmol/L CO2 24 mmol/L Anion Gap 14.2 BUN 20 mg/dL Creatinine 1.1 mg/dL Cr Clearance (Est) 91.88 mL/min eGFR 67.0 mL/min Glucose 108 mg/dL Osmolality - Calculated 283 mOsm/kg Calcium 8.8 mg/dL Protein, Total 6.6 g/dL Albumin 3.7 g/dL Globulin 2.9 g/dL Bilirubin, Total 0.3 mg/dL ALT (SGPT) 27 U/L AST (SGOT) 22 U/L Alkaline Phosphatase 114 IU/L WBC 10.7 10 3/uL RBC 4.54 10 6/uL HGB 14.5 g/dL HCT 42.7 % MCV 94.1 fL MCH 31.9 pg MCHC 34.0 g/dL RDW 11.9 % Platelet Count 181 10 3/cmm MPV 11.5 fL Neutrophils 7.44 10 3/uL Lymphocytes 1.8 10 3/uL Monocytes 0.9 10 3/uL Eosinophils 0.5 10 3/uL Basophils 0.1 10 3/uL Neutrophil % 69.2 % Lymphocyte % 16.7 % Monocyte % 8.3 % Eosinophil % 4.2 % Basophils % 1.2 % NRBC % 0 % Impression: 1. The patient has metastatic rectal cancer, diagnosed in September 2008. He had a very good response to initial chemotherapy with FOLFOX/Avastin. 2. He underwent laparoscopic low anterior resection with left hepatic lobectomy in February 2009. Pathology showed moderately differentiated adenocarcinoma measuring 3 x 2.5 x 0.6 cm with invasion into the subserosa. There was no involvement in 29 lymph nodes. Final staging was ypT3, ypN0, ypM1a. 3. He received additional postoperative chemotherapy as well as liver directed therapy, including microwave ablation, wedge resection, and several chemoembolization procedures. 4. In April 2011 he began second line chemotherapy with FOLFIRI/Avastin due to disease progression in the liver. He did have a good response. 5. Treatment was changed to irinotecan/Xeloda in combination with Avastin due to side effects. He had tolerated it well initially, though he continued to have symptoms of hand/foot syndrome and diarrhea even at a reduced dosage of the Xeloda. The Xeloda was discontinued, and as of September 2013 his treatment was limited to just irinotecan and Avastin. 6. He developed significant hypertension on Avastin, but it has been well controlled on medication. As of 01/02/2017 he had completed 55 cycles of treatment with irinotecan/Avastin. His restaging CT scans in October 2016 reported some new small pulmonary nodules, but the comparison was to a previous study from 2008. Similar findings had been reported on interim studies done in [place] in June 2015. When compared directly, all of the findings on the 11/03/2016 study appeared stable. Given his long period of stability, we opted to drop the irinotecan and just continue treatment with single agent Avastin at a 3-week dosing interval, cycle 1 beginning 01/16/2017. As of 10/11/[address] scans had shown no evidence of recurrence/progression of the rectal cancer. However, beginning in August 2017 there was a gradual increase in his serum creatinine. It reached a maximum of 1.6 mg/dL on 12/10/2017, at which point his Avastin was put on hold. During this time, his blood pressure had remained well controlled, and his overall clinical status had remained stable. During subsequent follow-up there was improvement in his renal function. However, as of 03/27/2018 there was a significant increase in his liver enzymes. His CT abdomen/pelvis showed no obvious recurrent or metastatic disease, and he continued on observation/expectant management. As of his follow-up visit on 08/06/2018 the liver enzymes were elevated, but there was no increase in the CEA level and he otherwise appeared stable clinically. His liver enzymes subsequently came back down to normal. During follow-up his renal function remained stable. There was a slight gradual increase in the CEA level, but it had also then stabilized. Overall, he continues to do well clinically, but his current restaging CT scans show a new pulmonary nodule in the lingula of the left lung, appearance of which is concerning for a primary carcinoma or metastatic disease. Plan: I will review the CT scan with the radiologist. I will determine then whether to proceed with PET/CT imaging or to just monitor with a follow-up chest CT at a 2 to 3-month interval. Signed By: Mario Lyman M.D. <<Signature on File>>
[2020-04-20 18:02] LABS: Carcinoembryonic Antigen 4.2 ng/mL (0.0-4.7)
== END 2020-04-20 06:10 | disposition home or self-care (01) ==
LOC: ONCMED 06:11
PROVIDERS: Visit Provider Internal Medicine Medical Oncology
DX: Z08 Encounter for follow-up examination after completed treatment for malignant neoplasm (principal); Z85.048 Personal history of other malignant neoplasm of rectum, rectosigmoid junction, and anus; R91.1 Solitary pulmonary nodule; Z23 Encounter for immunization; I10 Essential (primary) hypertension; Z92.21 Personal history of antineoplastic chemotherapy
CPT/HCPCS: 36591; 80053; 82378; 85025; 90471; 99214

== ENCOUNTER 2020-05-20 15:04 | Outpatient (CLI) | payer MEDICARE, OTHER, SELFPAY | END 2020-05-20 15:05 | disposition home or self-care (01) | LOC: ONCMED 15:09 | PROVIDERS: Visit Provider Internal Medicine Medical Oncology | DX: Z45.2 Encounter for adjustment and management of vascular access device (principal) | CPT/HCPCS: 96523 ==

== ENCOUNTER 2020-06-18 10:39 | Outpatient (CLI) | payer MEDICARE, OTHER, SELFPAY | END 2020-06-18 10:40 | disposition home or self-care (01) | LOC: RADWPI 10:41 → ONCMED 11:06 | PROVIDERS: Visit Provider Internal Medicine Medical Oncology | DX: Z45.2 Encounter for adjustment and management of vascular access device (principal) | CPT/HCPCS: 96523 ==

== ENCOUNTER 2020-06-30 11:11 | Outpatient (CLI) | payer MEDICARE, OTHER, SELFPAY ==
--- NOTE | 2020-06-30 11:15 | CT_ITS ---
WS: [id number] CT CHEST TECHNIQUE: Contrast enhanced CT of the chest with coronal and sagittal reformatted images. CLINICAL INFORMATION: SUSPICIOUS PULM NODULE LEFT LUNG, RECTAL CANCER COMPARISON: CT April 16, 2020 and PET/CT May 08, 2020 DLP: 1029.[address] scans at [facility] use at least one of these dose optimization techniques: automat ed exposure control; mA and/or kV adjustment per patient size (includes targeted exams where dose is matched to clinical indication); or iterative reconstruction. FINDINGS: Previously described FDG positive lingula nodule has increased in size today measuring 1.1 x 2.4 cm compared to 0.8 x 1.8 cm previously. Additional increase in size of the left upper lobe pulmonary nod ule today measuring 7 mm previously measuring 5 mm. This demonstrated low-grade FDG activity previous ly. Remainder of the numerous bilateral pulmonary nodules not significantly changed compared to previous. No mediastinal or hilar lymphadenopathy. Normal caliber thoracic aorta. No axillary lymphadenopathy. Prior postoperative changes resection left hepatic lobe. Low-attenuation lesion right hepatic lobe is unchanged. Normal GE junction. Adrenal glands are normal. IMPRESSION: 1. FDG avid Lingula nodule and left upper lobe pulmonary nodule both increased in size compared to t he prior PET/CT described above. 2. Remainder of noncalcified pulmonary nodules bilaterally not significantly changed. 3. No mediastinal or hilar lymphadenopathy. 4. Prior postoperative changes resection left hepatic lobe.
[2020-06-30 12:26] LABS: Blood Urea Nitrogen 15 mg/dL (8-23); Glomerular Filtration Rate 66.8 mL/min (90-130)
== END 2020-06-30 11:12 | disposition home or self-care (01) ==
LOC: RADWPI 11:13
PROVIDERS: PCP Nurse Practitioner; Visit Provider Internal Medicine Medical Oncology
DX: C20 Malignant neoplasm of rectum (principal); R91.8 Other nonspecific abnormal finding of lung field
CPT/HCPCS: 71260; 82565; 84520

== ENCOUNTER → 2020-07-12 09:44 | Outpatient (BNVA) | payer MEDICARE, OTHER, SELFPAY | PROVIDERS: Visit Provider Thoracic Surgery (Cardiothoracic Vascular Surgery) | DX: Z20.828 Contact with and (suspected) exposure to other viral communicable diseases (principal); R91.8 Other nonspecific abnormal finding of lung field | CPT/HCPCS: 87635 ==

== ENCOUNTER 2020-07-15 07:15 | Outpatient (CLI) | payer MEDICARE, OTHER, SELFPAY ==
--- NOTE | 2020-07-15 08:41 | PFTS_ITS ---
Date of Study:07/15/20 Date of Dictation: 08/11/20 MECHANICS: Forced vital capacity (FVC) is normal . Forced expiratory volume in one second (FEV1) is normal. FEV1/FVC is normal. FLOW VOLUME LOOP: normal . . LUNG VOLUMES: Total lung capacity (TLC) is normal . Residual volume (RV) is normal. DIFFUSING CAPACITY FOR CARBON MONOXIDE: normal . . INTERPRETATION: The pulmonary function tests are normal .Normal gas transfer. MTDD
== END 2020-07-15 07:16 | disposition home or self-care (01) ==
LOC: RT 03-01 16:21
PROVIDERS: Visit Provider Thoracic Surgery (Cardiothoracic Vascular Surgery)
DX: R91.8 Other nonspecific abnormal finding of lung field (principal)
CPT/HCPCS: 94010; 94726; 94729

== ENCOUNTER 2020-07-19 16:01 | Inpatient (IN) | payer MEDICARE, OTHER, SELFPAY ==
[2020-07-15 07:30] VITALS: BMI 30.4
[2020-07-15 07:58] LABS: Add Urine Microscopic? NO
[2020-07-15 08:03] LABS: Basophils # 0.1 10^3/uL (0.0-0.1); Basophils % 1.3 %; Eosinophils # 0.4 10^3/uL (0.0-0.8); Eosinophils % 4.6 %; Hematocrit 43.5 % (42.0-52.0); Hemoglobin 14.5 g/dL (11.7-16.6); Lymphocytes # 1.3 10^3/uL (0.8-4.8); Lymphocytes % 16.4 %; Mean Corpuscular HGB Conc 33.3 g/dL (30.0-36.0); Mean Corpuscular Hemoglobin 31.7 pg (28.0-34.0); Mean Platelet Volume 11.2 fL (7.4-10.4); Monocytes # 0.7 10^3/uL (0.2-0.9); Monocytes % 8.6 %; Neutrophils # 5.48 10^3/uL (1.8-7.7); Neutrophils % 68.7 %; Nucleated Red Blood Cells % 0 %; Platelet Count 230 10^3/cmm (130-400); Red Blood Count 4.58 10^6/uL (4.1-5.3); Red Cell Distribution Width 12.7 % (12.1-15.1)
[2020-07-15 08:11] LABS: Bilirubin Urine Neg (Negative); Blood Urine Neg (Negative); Glucose Urine UA Norm (Normal); Ketones Urine Negative (Negative); Leukocyte Esterase Urine Negative (Negative); Nitrate Urine Negative (Negative); Protein Urine Neg (Negative); Specific Gravity, Urine 1.015 (1.005-1.030); Urine Appearance Clear (CLEAR); Urine Color Straw (Yellow); Urobilinogen Urine Norm (Negative)
[2020-07-15 08:22] LABS: Alanine Aminotransferase 36 U/L (0-41); Albumin Level 4.1 g/dL (3.5-5.2); Alkaline Phosphatase 143 IU/L (40-130); Anion Gap 13.4 (5-19); Aspartate Amino Transferase 27 U/L (0-40); Blood Urea Nitrogen 18 mg/dL (8-23); Calcium 9.3 mg/dL (8.5-10.5); Carbon Dioxide 25 mmol/L (22-29); Chloride 102 mmol/L (98-107); Glomerular Filtration Rate 74.5 mL/min (90-130); Glucose 87 mg/dL (65-115); Osmolality Calculated 283 mOsm/kg (285-295); Potassium 4.4 mmol/L (3.5-5.1); Sodium 136 mmol/L (136-145); Total Bilirubin 0.4 mg/dL (0.15-1.2); Total Protein 7.1 g/dL (6.6-8.7)
[2020-07-15 08:30] LABS: INR 1.05 (0.8-1.2)
--- NOTE | 2020-07-15 08:40 | ANES.PREANE2 ---
Pre-Anesthetic Assessment Pre-Anesthetic Assessment: Height/Weight: Height 1.73 m Weight 90.718 kg Preop Diagnosis: Left lung mass Proposed Procedure: Operation Date: 07/19/20 13:00 Proposed Procedures p Left Thoracoscopy(Left) - Tim Smith MD Familial anesthetic complications: None Social: Social History: Alcohol and Tobacco Comment: couple of beers daily Exam: Pre-Anes Outpt Exam: alert, oriented x 3, clear to auscultation bilaterally and regular rate & rhythm Airway: Cervical ROM: WNL MP: 3 Dentition: Other CV/HEM: CV/HEM: HTN GI: Comments: hx stage IV kidney cancer 2008, mets to liver Anesthetic Plan: ASA status: 2 Anesthesia: General Other: KALEE, A line, Epidural Risk of > 500 ml blood loss (7ml/kg in children): Yes, adequate IV access and fluids planned PFSH Anesthesia PFSH: Medical History (Updated 07/08/20 @ 10:56 by Tim Smith MD) Essential (primary) hypertension GERD (gastroesophageal reflux disease) Gout History of colon cancer, stage IV Working Dr. Lyman Pulmonary nodules Surgical History History of cataract surgery both eyes History of colon resection Had 2 produces for colon cancer Family History Father Cancer Prostate cancer 1976 Mother Dementia Sister CAD (coronary artery disease) Social History Smoking and tobacco status: never smoked Second hand smoke exposure: No Smoking risk assessment/counseling performed?: No Alcohol intake: never Desire information about alcohol rehabilitation?: No Counseling given: No Desire information about substance/drug rehabilitation?: No Counseling given: No Adopted: No Caregiver/support person: No Lives independently: Yes Household members: spouse Housing: House Marital status: Number of children: 1 service: Yes branch: [employer] Current occupational status: retired History of recent travel: No Current gender identity: Male Data Anesthesia CBC & Chem 7: 07/15/20 07:45 07/15/20 07:45 Other Labs: Laboratory Results - last 48 hr 07/15/20 07/15/20 07/15/20 07:20 07:45 07:45 WBC 8.0 RBC 4.58 Hgb 14.5 Hct 43.5 MCV 95.0 H MCH 31.7 MCHC 33.3 RDW 12.7 Plt Count 230 MPV 11.2 H Neut % (Auto) 68.7 Lymph % (Auto) 16.4 Hardy % (Auto) 8.6 Eos % (Auto) 4.6 Baso % (Auto) 1.3 Neut # (Auto) 5.48 Lymph # (Auto) 1.3 Hardy # (Auto) 0.7 Eos # (Auto) 0.4 Baso # (Auto) 0.1 Nucleated RBC % (auto) 0 Nucleated RBCs # 0.0 PT 14.00 INR 1.05 Sodium Potassium Chloride Carbon Dioxide Anion Gap BUN Creatinine Glucose Calcium Total Bilirubin AST ALT Total Protein Albumin Globulin Urine Color Straw Urine Appearance Clear Urine pH 5.0 Ur Specific [place] 1.015 Urine Protein Neg Urine Glucose (UA) Norm Urine Ketones Negative Urine Blood Neg Urine Nitrate Negative Urine Bilirubin Neg Urine Urobilinogen Norm Ur Leukocyte Esterase Negative 07/15/20 07:45 WBC RBC Hgb Hct MCV MCH MCHC RDW Plt Count MPV Neut % (Auto) Lymph % (Auto) Hardy % (Auto) Eos % (Auto) Baso % (Auto) Neut # (Auto) Lymph # (Auto) Hardy # (Auto) Eos # (Auto) Baso # (Auto) Nucleated RBC % (auto) Nucleated RBCs # PT INR Sodium 136 Potassium 4.4 Chloride 102 Carbon Dioxide 25 Anion Gap 13.4 BUN 18 Creatinine 1.0 Glucose 87 Calcium 9.3 Total Bilirubin 0.4 AST 27 ALT 36 Total Protein 7.1 Albumin 4.1 Globulin 3.0 Urine Color Urine Appearance Urine pH Ur Specific [place] Urine Protein Urine Glucose (UA) Urine Ketones Urine Blood Urine Nitrate Urine Bilirubin Urine Urobilinogen Ur Leukocyte Esterase Cardiac Studies: No Data to Display
[2020-07-19] VITALS (21 sets, daily range): BP systolic 143–177; BP diastolic 79–122; PULSE 73–87; RESP 12–32; TEMP 36.2–36.8; O2SAT 77–100
--- NOTE | 2020-07-19 11:43 | ECG_ITS ---
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
--- NOTE | 2020-07-19 11:55 | W.PM.OPSUD ---
Surgery/Procedure H&P Update DATE OF PROCEDURE: July 19, 2020 DATE H&P PERFORMED: 07/08/20 H&P UPDATE INFORMATION: I have reviewed H&P completed within last 30 days, I have examined patient prior to procedure and Changes to prior documentation as noted here (Details and risk of surgery again carefully reviewed. Inability to identify or resect the lesion thoracoscopically, necessitating need for thoracotomy was also discussed. Patient and state understanding.) PREOP DIAGNOSIS: Left lung mass PRIMARY INDICATION FOR PROCEDURE: Left lingular lung mass with history of rectal carcinoma status post therapy PLANNED PROCEDURE: Operation Date: 07/19/20 13:00 Proposed Procedures p Left Thoracoscopy poss thoracotomy(Left) - Tim Smith MD
--- NOTE | 2020-07-19 12:19 | P.ANESUD_ITS ---
Pre-Anesthetic Update Pre-Anesthetic Assessment: Date of Surgery/Procedure: 07/19/20 Preop Gudelia gnosis: Left lung mass Proposed Procedure: Operation Date: 07/19/20 13:00 Proposed Procedures p Left Thoracoscopy poss thoracotomy(Left) - Tim Smith MD Any changes to Pre-Anesthetic Assessment?: No Last Intake: Intake Last Liquid Date 07/18/20 Last Liquid Time 21:00 Last Solid Date 07/18/20 Last Solid Time 20:00 Labs Last 48hrs: Laboratory Results - last 48 hr 07/15/20 07:45 Blood Type O Positive Rho(D) Type Positive Antibody Screen Negative Crossmatch See Detail Vitals: Temperature 97.1 F L 07/19/20 11:49 Temperature Source Temporal Artery S can 07/19/20 11:49 Pulse Rate 73 07/19/20 11:49 Respiratory Rate 20 H 07/19/20 11:49 Blood Pressure 164/107 07/19/20 11:49 Blood Pressure Shirin n 126 07/19/20 11:49 Pulse Oximetry 98 07/19/20 11:49 Oxygen Delivery Me thod 07/19/20 11:49 Exam: Pre-Anes Outpt Exam: alert, oriented x 3, clear to auscultation bilaterally and regular rate & rhythm Cardiac Studies: No Data to Display
[2020-07-19] MEDS: sodium chloride 0.9% 1,000 ML 30 ML IV (12:27)
--- NOTE | 2020-07-19 13:16 | P.ANES_ITS ---
Anesthesia Procedures Procedure/Date: 07/19/20 Epidural: Time Out Performed: Yes Consents Signed: Procedure Consent Consent: requested by attending/covering physician, from patient, risks and benefits reviewed and patient agrees to proceed Thoracic Level: other (T8-9) Epidural position: sitting Epidural procedure: sterile prep of area, 1% lid ocaine to numb the area, 18 g needle, neg for paresthesia, test dose given, 1.5% xylocaine 1:200k epi, no systemic response, sterile dressing applied and 0.2% Ropiavacaine @ mls/hr (6) Additional Comments: PAYTON at 5cm cath at 10cm.
--- NOTE | 2020-07-19 13:16 | ANES.PROC ---
Anesthesia Procedures Procedure/Date: 07/19/20 Arterial Line: Time Out Performed: Yes Consent: requested by attending/covering physician, from patient, risks and benefits reviewed and patient agrees to proceed Size (Gauge): 20 Technique Used: guide wire technique Post-Procedure: dry sterile dressing placed Patient Tolerated Procedure: well Complications: none Site: right and radial
[2020-07-19] MEDS: ceFAZolin 1,000 mg SDV 1000 MG IRRIGATION (13:48)
--- NOTE | 2020-07-19 15:52 | PM.OP ---
Operative Report Date of procedure: July 19, 2020 Pre-op Diagnosis: Left upper lobe lung mass; history of rectal carcinoma Post-op diagnosis: same Procedure Done: Left thoracoscopy with inferior segmentectomy of lingula of left upper lobe Specimens removed/disposition: Inferior segment lingula Surgeon: Tim Smith Anesthesia: General Estimated blood loss (mL): 100 Complications: None Findings: Lesion of inferior segment of the lingula isolated and resected. Could not localize smaller lesion of left upper lobe through thoracoscopic approach. Patient requested to avoid thoracotomy if possible. Condition: stable Disposition: ICU Brief History: Mr. Squires is a 65-year-old gentleman referred to our service for 2 cm lingular lesion identified during routine surveillance for prior carcinoma. He was originally diagnosed with rectal carcinoma stage Lina with metastasis I did undergone extensive treatments including treatment for multiple liver metastasis. PET scan of April revealed increased activity in the lingular lesion. Follow-up CT scan of June 30 revealed increased dimensions of this lingular lesion as well. No other adenopathy was identified. Resection was requested by oncology. Discussion of approach was undertaken with Mr. Gardner and his . He wished to avoid thoracotomy if possible. We did discuss that due to the relatively smaller size of the upper lesion, we might not be able to isolated through thoracoscopic approach. He stated understanding. Procedure: Mr. Gardner was taken to the operating room and underwent general endotracheal anesthesia after appropriate invasive monitoring lines were placed. Double-lumen endotracheal tube was placed and confirmed by bronchoscopy. He was then placed in the right lateral decubitus position over an axillary roll and protective padding. He was secured and then sterilely prepped and draped. 4 thoracoscopic ports were placed. One in the posterior axillary line in the sixth intercostal space. Another anteriorly in the eighth intercostal space. Another more posteriorly in the fifth intercostal space. Report port was placed in the anterior axillary line more superiorly to allow for closer inspection of the left upper lobe. Camera was inserted and systematic inspection of the left hemithorax was undertaken. Initial thorascopic inspection revealed there were no substantial adhesions or pleural fluid. No substantial adenopathy was identified in the mediastinum or hilum. There was generalized anthracosis throughout. The larger more dominant lesion of the inferior segment of the lingula was easily identified. It was carefully isolated utilizing endoscopic clamps. Next, utilizing a series of endoscopic transection lines with beni reinforced with Vicryl, the inferior segment of the lingula was resected to include this lesion. Staple line appeared to be intact. Specimen was removed and sent to pathology for permanent analysis. Next, in a systematic fashion, we attempted to isolate and identify the much smaller lesion in the parenchyma of the left upper lobe. We were unable to clearly identify this deep lesion. This scenario had been discussed with Mr. Gardner and his preoperatively during their clinic visit with me. It was his wish that if we were able to resect the more larger prominent lesion thoracoscopically we unable to identify the upper lobe lesion, he wished to attempt to avoid thoracotomy if possible. Therefore, I elected not to proceed with thoracotomy to isolate this lesion, per his wishes. At completion, hemostasis was controlled with cautery. Having completed this, we then placed one 28 Lithuanian drain, situated anteriorly and to the apex. It was secured and connected to Pleur-evac suction. Ports were removed. Sponge and needle count was correct. Thoracoscopic ports were closed with 2--0, 3-0, and 3-0 Monocryl suture. Sterile dressings were applied. Mr. Gardner was returned to supine position where he was awakened and extubated. He was then taken to the ICU in stable condition. Chest x-ray is pending. I did confer with his by phone at the completion of the procedure. Due to incoming weather, she elected to proceed prior to completion of the procedure back to their home in [place], [place].
[2020-07-19] MEDS: lactated ringers 1,000 ML 100 ML IV (17:10)
[2020-07-19] MEDS: metoprolol tartrate 50 mg Tablet PO (17:10)
--- NOTE | 2020-07-19 17:46 | ANE.PACU2 ---
Inpatient post-anesthesia follow up: Airway intact: Yes Vital signs: Temperature 97.1 F Pulse Rate 80 Respiratory Rate 16 Blood Pressure 164/107 Pulse Oximetry 99 Oxygen Delivery Me thod Nasal Cannula Oxygen Flow Rate 4 Fraction of Inspir ed Oxygen Hydration adequate: Yes Nausea and vomiting: No Pain level: 1 Mental status: Baseline
--- NOTE | 2020-07-19 18:44 | PC.NURSE ---
Pulls 2000 on IS.
[2020-07-20] VITALS (7 sets, daily range): BP systolic 139–180; BP diastolic 76–94; PULSE 75–101; RESP 17–18; TEMP 36.5–37; O2SAT 94–97
[2020-07-20] MEDS: lactated ringers 1,000 ML 100 ML IV (02:22)
[2020-07-20 04:00] LABS: Basophils % 0.1 %; Eosinophils % 0.1 %; Hematocrit 38.6 % (42.0-52.0); Hemoglobin 12.9 g/dL (11.7-16.6); Lymphocytes % 7.1 %; Mean Corpuscular HGB Conc 33.4 g/dL (30.0-36.0); Mean Corpuscular Hemoglobin 32.2 pg (28.0-34.0); Mean Corpuscular Volume 96.3 fL (80-94); Mean Platelet Volume 11.7 fL (7.4-10.4); Monocytes # 0.8 10^3/uL (0.2-0.9); Monocytes % 5.4 %; Neutrophils # 12.38 10^3/uL (1.8-7.7); Neutrophils % 86.7 %; Nucleated Red Blood Cells % 0 %; Platelet Count 182 10^3/cmm (130-400); Red Blood Count 4.01 10^6/uL (4.1-5.3); Red Cell Distribution Width 12.5 % (12.1-15.1); White Blood Count 14.3 10^3/uL (4.0-10.0)
[2020-07-20 04:25] LABS: Anion Gap 12.6 (5-19); Blood Urea Nitrogen 24 mg/dL (8-23); Calcium 8.4 mg/dL (8.5-10.5); Carbon Dioxide 19 mmol/L (22-29); Chloride 110 mmol/L (98-107); Glomerular Filtration Rate 66.8 mL/min (90-130); Glucose 119 mg/dL (65-115); Osmolality Calculated 289 mOsm/kg (285-295); Potassium 4.6 mmol/L (3.5-5.1); Sodium 137 mmol/L (136-145)
[2020-07-20] MEDS: metoprolol tartrate 50 mg Tablet PO ×2 (04:42→16:56)
--- NOTE | 2020-07-20 06:00 | XRR_ITS ---
PROCEDURE INFORMATION: Exam: XR Chest, 1 View Exam date and time: 07/20/2020 5:59 AM Age: 65 years old Clinical indication: Device placement; Other: Thoracoscopic resection lingular; Prior surgery; Surgery date: Post-operative (0-2 days); Additional info: Postop day #1 status post thoracoscopic resection lingular L TECHNIQUE: Imaging protocol: XR of the chest Views: 1 view. COMPARISON: CT chest w con* [id number] 06/30/2020 12:04 PM FINDINGS: Tubes, catheters and devices: Thoracotomy tube on the left directed to the apex. Minimal atelectasis left lung base. Lungs are otherwise well aerated. Lungs: See Tubes, catheters and devices finding. Pleural spaces: Unremarkable. No pleural effusion. No pneumothorax. Heart/Mediastinum: Unremarkable. No cardiomegaly. Vasculature: Chest port via the left subclavian approach with the tip overlying the superior vena cava. Bones/joints: Unremarkable. XR/XR chest 1V portable [id number] IMPRESSION: Thoracotomy tube on the left directed to the apex. Minimal atelectasis left lung base. Lungs are otherwise well aerated.
--- NOTE | 2020-07-20 06:38 | P.PN_ITS ---
Subjective Subjective: Interval history: Postop day #1 status post left lingular inferior segmentectomy. Pathology pending. No air leak on chest tube to waterseal overnight. Chest tube output 170 cc since surgery. Pain under good control. Vital signs stable. Afebrile. Vitals/I&O/Wt Last Vital Signs Temp 98.2 F 07/19/20 21:12 Pulse 75 07/20/20 06:00 Resp 31 H 07/19/20 21:00 BP 143/79 07/19/20 21:00 Pulse Ox 99 07/19/20 21:00 07/19/20 07/19/20 07/20/20 14:59 22:59 06:59 Intake Total 745 / 745 1170 / 1915 Output Total 790 / 790 1620 / 2410 Balance -45 / -45 -450 / -495 Physical Exam Chest: COMMONS NORMALS: normal inspection of the chest and normal palpation of entire chest wall Resp: COMMON NORMALS: normal respiratory effort, No use of accessory muscles, clear to auscultation bilaterally and percussion normal EFFORT & INSPECTION: Yes able to speak in complete sentences and Yes symmetric chest movement AUSCULTATION: clear to auscultation bilaterally PERCUSSION: percussion normal Cardio: COMMON NORMALS: regular rate, regular rhythm, S1 normal heart sound present, No gallops present (Cardio), No murmurs present (Cardio) and No rub (Cardio) JUGULAR VENOUS DISTENTION: no JVD PALPATION: normal PMI RATE: regular rate RHYTHM: regular rhythm HEART SOUNDS: S1 normal heart sound present Extremity: COMMON NORMALS: no clubbing, cyanosis or edema Urinary Catheter Management^: Rosenbaum: Cath Placed During This Visit: yes Reason for Continuing Indwelling Catheter: Accurate Measurement of Urinary Output in Critically Ill Patients Urinary Catheter Date of Insertion: 07/19/20 Urinary Catheter Time of Insertion: 12:45 Data : 07/20/20 03:09 07/20/20 03:09 A&P Assessment and plan (1) Mass of left lung: Postop day #1 status post resection of lingular lung mass Plan: Chest tube to waterseal. Transferred to medical surgical styles. Continue pulmonary toilet. Chest x-ray in a.m. DC A-line. Will continue epidural catheter 1 more day. Status: Acute Attestations Medical Necessity Statement*: POD #1 status post resection of lung mass Time Spent in Patient Care: 16 - 35 minutes Procedures Arterial Line Size (Gauge): 20 Coding Level of Care Code Acute Unindentured Apprentice for Chg Fwd Diagnoses Mass of left lung R91.8
--- NOTE | 2020-07-20 08:12 | ANE.PACU2 ---
Inpatient post-anesthesia follow up: Airway intact: Yes Vital signs: Temperature 98.2 F Pulse Rate 75 Respiratory Rate 31 Blood Pressure 143/79 Pulse Oximetry 99 Oxygen Delivery Me thod Nasal Cannula Oxygen Flow Rate 4 Fraction of Inspir ed Oxygen Hydration adequate: Yes Nausea and vomiting: No Pain level: 1 Mental status: Baseline Additional Comments: POD#1 good pain control, taking PO, transferring to the floor. Chest tube to water seal.
[2020-07-20] MEDS: pantoprazole DR 40 mg Tablet PO (09:21)
--- NOTE | 2020-07-20 09:33 | PC.CHAP ---
Pastoral Care Encounter/Spiritual Assessment Type of Contact [] Declined instrument setter visit [] Patient/Family/Request visit [] Outpatient visit [] Follow-up visit [] Physician referral [] Code/Alert [x] Routine visit [] Staff referral [] Actively dying [] Patient sleeping [] Family support [] [] Out of room [] Palliative care [] [] Receiving care in room [] Pre-surgical visit [] Trauma [] Long length of stay [x ICU visit [] Other: Relational/Emotional Strength [] Patient feels connected with others/family/visitors/staff [] Distress [] Loneliness/isolation [] Abandonment Spirituality of Patient [] Person of [place] [] Attends Mosque of their [place] [] Believes in Prayer [] Reads Bible or Baptist materials [] There are Spiritual issues to be addressed Load Out Supervisor Interventions [x] Prayer [x] Active listening [x] Non-anxious presence [x] Spiritual/emotional support [] Crisis/trauma care [] Spiritual counseling [] Bereavement support [] Provided bereavement packet [] Provided Bible/devotional materials [] Provided toy/stuffed animal, coloring book to patient or family member [] Provided Communion [] Anointing/[place] [] Salvation [x] Completed spiritual assessment [] Other: Impact on Illness or Injury [] Angry [] Fearful [] Anxious [] Often cries [] Exhaustion [] Unable to work [] Unable to attend sabianist [] Unable to walk/stand [] Unable to read [] Unable to drive [] Unable to eat/drink [] Unable to sleep [] Unable to be with family [] Patient intubated [] Other: Summary patient feeling stronger... Time spent with patient 5 min
--- NOTE | 2020-07-20 10:27 | PC.NURSE ---
Pt able to pull 1500 on IS.
[2020-07-20] MEDS: ceFAZolin 1,000 MG in sodium chloride 0.9% (plus) 50 ML 100 MG IV ×2 (12:07→20:05)
[2020-07-20] MEDS: ketorolac 30 mg/mL INJ IVP (16:27)
--- NOTE | 2020-07-20 17:49 | PC.NURSE ---
SHIFT SUMMARY PATIENT HAS DONE VERY WELL SINCE ARRIVING TO THE FLOOR FROM ICU. PATIENT HAS AMBULATED MULTIPLE TIMES IN THE [place]. PATIENT HAS HAD 1100ML OF URINE OUTPUT. PATIENT HAS HAD 100ML OF OUTPUT FROM THE CHEST TUBE. DRESSINGS C/D/I. EPIDURAL CONTROLLING PAIN. THIS NURSE ADMINISTERED ONE DOSE OF TORADOL FOR PATIENT AFTER AMBULATING. SITTING UP IN THE CHAIR. BILATERAL SCD'S ON. NO COMPLAINTS AT THIS TIME.
[2020-07-21] VITALS (9 sets, daily range): BP systolic 154–180; BP diastolic 84–93; PULSE 81–97; RESP 17–20; TEMP 37.1–37.6; O2SAT 95–98
[2020-07-21] MEDS: ceFAZolin 1,000 MG in sodium chloride 0.9% (plus) 50 ML 100 MG IV (03:28)
[2020-07-21] MEDS: metoprolol tartrate 50 mg Tablet PO ×2 (05:55→17:09)
--- NOTE | 2020-07-21 06:00 | XR_ITS ---
WS: [id number] Portable AP upright chest, 07/21/2020 Clinical Data: POD #2 status post segmentectomy: CT to waterseal Comparison: Portable chest, 07/20/2020 Findings: The left chest tube remains in same position with the tip ending in the apex of the left pl eural space. The left subclavian catheter still ends in the superior vena cava. Is minimal opacity in the left lower lobe which may represent atelectasis. The right lung is clear. The heart is normal. M onitor leads are on the chest wall. XR/XR chest 1V portable [id number] Impression: No change in left lower lobe atelectasis and position of left chest tube and le ft subclavian catheter.
--- NOTE | 2020-07-21 06:18 | P.PN_ITS ---
Subjective Subjective: Interval history: Postop day #2 status post segmentectomy of the lingula. Pathology still pending. Surgical discomfort under good control with epidural catheter and supplementation. Chest tube output reported at 100 cc past 24 hours. No airleak. Chest x-ray is clear with perhaps a very small rim pneumothorax costodiaphragmatic angle. Vitals/I&O/Wt Last Vital Signs Temp 99.6 F 07/21/20 04:00 Pulse 88 07/21/20 04:00 Resp 20 H 07/21/20 04:00 BP 154/89 07/21/20 04:00 Pulse Ox 95 07/21/20 04:00 07/20/20 07/20/20 07/21/20 14:59 22:59 06:59 Intake Total 630 / 630 390 / 1020 50 / 1070 Output Total 800 / 800 450 / 1250 950 / 2200 Balance -170 / -170 -60 / -230 -900 / -1130 Physical Exam Chest: COMMONS NORMALS: normal inspection of the chest (Surgical dressing is dry. Chest tube in good position.) and normal palpation of entire chest wall (Chest wall stable.) Resp: COMMON NORMALS: normal respiratory effort, No use of accessory muscles, clear to auscultation bilaterally and percussion normal EFFORT & INSPECTION: Yes able to speak in complete sentences, Yes symmetric chest movement and No tachypneic AUSCULTATION: clear to auscultation bilaterally PERCUSSION: percussion normal Cardio: COMMON NORMALS: regular rate, regular rhythm, S1 normal heart sound present, No gallops present (Cardio), No murmurs present (Cardio) and No rub (Cardio) RATE: regular rate RHYTHM: regular rhythm HEART SOUNDS: S1 normal heart sound present Extremity: COMMON NORMALS: no clubbing, cyanosis or edema Urinary Catheter Management^: Rosenbaum: Cath Placed During This Visit: yes Reason for Continuing Indwelling Catheter: Acute Urinary Retention or Obstru ction Urinary Catheter Date of Insertion: 07/19/20 Urinary Catheter Time of Insertion: 12:45 Data : 07/20/20 03:09 07/20/20 03:09 A&P Assessment and plan (1) Mass of left lung: Progressing well postop day #2 status post segmentectomy from the lingula Pathology pending. Plan: I will plan to remove chest tube later today with possible discharge tomorrow. Continue pulmonary toilet Status: Acute Attestations Medical Necessity Statement*: Postop day #2 segmentectomy for lung mass Time Spent in Patient Care: 16 - 35 minutes Procedures Arterial Line Size (Gauge): 20 Coding Level of Care Code Acute Industrial Ecologist for Ofeliag Fwd Exam Problem Focused Diagnoses Mass of left lung R91.8
[2020-07-21] MEDS: pantoprazole DR 40 mg Tablet PO (07:59)
[2020-07-21] MEDS: HYDROcodone-acetaminophen 7.5-325 mg Tablet PO ×3 (13:48→21:12)
--- NOTE | 2020-07-21 13:56 | ANE.PACU2 ---
Inpatient post-anesthesia follow up: Airway intact: Yes Vital signs: Temperature 98.9 F Pulse Rate 97 Respiratory Rate 17 Blood Pressure 167/84 Pulse Oximetry 98 Oxygen Delivery Me thod Room Air Oxygen Flow Rate 4 Fraction of Inspir ed Oxygen Hydration adequate: Yes Nausea and vomiting: No Pain level: 1 Mental status: Baseline Additional Comments: Epidural removed with tip intact (Smith).
--- NOTE | 2020-07-21 18:35 | PC.NURSE ---
SHIFT SUMMARY PATIENT HAS DONE VERY WELL TODAY. GOOD URINE OUTPUT. PAIN WELL CONTROLLED. DR. COOPER DISCONTINUED PATIENT'S CHEST TUBE TODAY WELL EPIDURAL. NEW DRESSINGS APPLIED. PATIENT AMBULATED WELL TODAY. NO COMPLAINTS AT THIS TIME.
[2020-07-22] VITALS (7 sets, daily range): BP systolic 162–190; BP diastolic 80–100; PULSE 76–108; RESP 17–20; TEMP 36.6–37; O2SAT 95–96
[2020-07-22] MEDS: metoprolol tartrate 50 mg Tablet PO (05:26)
[2020-07-22] MEDS: HYDROcodone-acetaminophen 7.5-325 mg Tablet PO (05:26)
--- NOTE | 2020-07-22 05:30 | PC.NURSE ---
I just reviewed patient's blood pressure at this time and found that it was documented 190/100. This press writer was not notified by the MATERIAL DISPOSITION INSPECTOR. Manual blood pressure by this RN is 172/90. Pain medications and Metoprolol given at this time.
--- NOTE | 2020-07-22 06:00 | XR_ITS ---
WS: [id number] CHEST XRAY TECHNIQUE: Portable chest. CLINICAL INFORMATION: chest tube dc'd COMPARISON: July 21, 2020 FINDINGS: Interval removal of left chest tube. No visualized pneumothorax. Heart: Normal cardiac silhouette. Calcification. Left Port-A-Cath with tip in the mid SVC. Lungs: Shallow inspiration. Moderate chronic emphysematous changes. Small bilateral pleural effusions with slight bibasilar infiltrates/atelectasis more prominent left lower lobe. Bones: Thoracic curve convex right. XR/XR chest 1V portable [id number] IMPRESSION: 1. Interval removal of left chest tube. No pneumothorax. 2. Left Port-A-Cath with tip in SVC. 3. Shallow inspiration with tiny bilateral pleural effusions and bibasilar inf iltrates/atelectasis unchanged.
--- NOTE | 2020-07-22 06:30 | PC.NURSE ---
Rounded with Dr. Smith this morning and he requests that the chest x-ray be completed this morning and then he will look at it and do discharge paperwork remotely. Dr. Smith also requests that patient get his port flushed before he is discharge. Dr. Smith also requests that patient get a shower and then be swabbed with betadine and redressed.
--- NOTE | 2020-07-22 06:47 | PM.DCS ---
Discharge Providers Date of Admission: 07/19/20 16:01 Date of Discharge: July 22, 2020 Attending Provider at Admission: Tim Smith MD Attending Provider at Discharge: Tim Smith MD Diagnoses at Discharge Discharge Diagnosis (1) Mass of left lung: Status: Resolved Reason for Visit Reason for Visit: Left Thoracoscopy Hospital Course Hospital Course Mr. Squires is a 65-year-old gentleman with a prior history of rectal carcinoma status post chemotherapy and hepatic resection and cryotherapy for metastatic disease. He was referred to our service for a left lingular mass with increased activity on PET scan. He was electively admitted on July 19 and underwent left thoracoscopy and left inferior lingular segmentectomy. Pathology is currently pending. Postoperatively, he convalesced in the ICU where he did well with his postop airleak dissipating within 12 hours. Pain has been under good control with epidural catheter. This is now been discontinued and he has been transitioned to oral medication for which he is doing well. Chest tube output continues to decrease in chest tube was removed yesterday. Incisions are clean and dry. Pulmonary exam is stable. He is tolerating a diet well. Incisions are clean and dry. Chest x-ray a.m. on the morning of discharge reveals no evidence of pneumothorax and very small bilateral effusions. He will be discharged home today in stable condition with scheduled follow-up in my clinic in 1 week with chest x-ray. Pathology remains pending at the time of discharge. Physical Exam Resp: COMMON NORMALS: normal respiratory effort, No retractions, No use of accessory muscles, clear to auscultation bilaterally and percussion normal EFFORT & INSPECTION: Yes able to speak in complete sentences and Yes symmetric chest movement AUSCULTATION: clear to auscultation bilaterally PERCUSSION: percussion normal OTHER: Thoracoscopic incisions are clean and dry. Cardio: COMMON NORMALS: regular rate, regular rhythm, S1 normal heart sound present, No gallops present (Cardio) and No murmurs present (Cardio) RATE: regular rate RHYTHM: regular rhythm HEART SOUNDS: S1 normal heart sound present Extremity: COMMON NORMALS: no clubbing, cyanosis or edema Urinary Catheter Management^: Rosenbaum: Cath Placed During This Visit: yes, but has since been removed by the nurse Reason for Continuing Indwelling Catheter: Decision to DC Catheter Urinary Catheter Date of Insertion: 07/19/20 Urinary Catheter Time of Insertion: 12:45 Date Urinary Catheter Removed: 07/21/20 Time Urinary Catheter Discontinued: 17:17 Discharge Data Data Completed and Pending: Completed Studies During Hospitalization Category Date Time Status XR chest 1V jonn ble [id number] Routine Exams 07/20/20 06:00 Completed XR chest 1V jonn ble [id number] Routine Exams 07/21/20 06:00 Completed Pending at discharge Category Date Time Status ES surgery / GI i mages Routine Exams 07/19/20 13:36 Taken XR chest 1V jonn ble [id number] Routine Exams 07/22/20 06:00 Ordered Leukocyte Reduced RBC Routine Lab 07/15/20 07:45 Results Type and Screen - Cardiac Routine Lab 07/15/20 07:45 Results Pathology: Surgic al [PTH] Routine Pth 07/19/20 15:05 Received Vitals: Last Vital Signs Temp 98.6 F 07/22/20 04:24 Pulse 94 07/22/20 06:00 Resp 18 07/22/20 04:24 BP 172/90 07/22/20 05:30 Pulse Ox 95 07/22/20 04:24 Discharge Plan Discharge Patient Disposition: Home Condition: Stable Prescriptions: New hydrocodone-acetaminophen 5-325 mg tablet 1 tab PO Q6H PRN (Reason: pain) Qty: 24 RF: 0 Continued betamethasone dipropionate 0.05 % ointment 1 applic topical BID Qty: 45 RF: 1 metoprolol tartrate 50 mg tablet 50 mg PO Q12H RF: 0 Daily Probiotic 2.5 billion cell capsule See Rx Instructions PO .COMPLEX Qty: 30 RF: 0 Hold Instructions: Doctor's Order Discharge Orders: Discharge Order (Routine); Ordered 07/22/20 Ordered By: Tim Smith Referrals: Tim Smith MD [Physician] - 07/30/20 12:00 pm (with cxr ) Discharge Diet: Usual diet Discharge Activity: Limit activity as instructed Patient Instructions: Hydrocodone/Acetaminophen (By mouth), Chest Tubes (DC), Thoracotomy (DC), Thoracoscopy (DC), Lung Lobectomy (DC) Activity Restrictions/Additional Instructions: May shower daily. Dry incisions completely afterwards. No swimming or tub baths x2 weeks No heavy lifting or pulling x4 weeks Use incentive spirometer frequently Report any increasing shortness of breath, pain, fever, redness or drainage from incisions. Discharge Attestations Time Spent in Discharge Care*: less than 30 min Specific Discharge Activities: educating patient, discussing with caseworker protective services/social workers/dc planners, documenting/other paperwork and evaluating patient/reviewing data Status at Discharge: Cognitive status at discharge: cognitively intact, Functional status at discharge: independent ambulation Overall status at discharge: patient is progressing back to baseline Quality Metrics Clinical Quality Measures During this hospital stay, did patient experience: None Coding Level of Care Code Acute Bumper Machine Operator for Ana Paula Fwd Exam Expanded Problem Focused Diagnoses Mass of left lung R91.8
[2020-07-22] MEDS: pantoprazole DR 40 mg Tablet PO (08:37)
--- NOTE | 2020-07-22 10:39 | PC.NURSE ---
Accessed patient's port with a 22 gauge to heparin flush patients port per doctor Hartman. De-accessed port after flush and applied 2x2 with tape. Patient tolerated fine.
[2020-08-02 06:28] LABS: PD-L1 (Clone 22C3) by IHC BBPL See Report
== END 2020-07-22 12:07 | disposition home or self-care (01) | DRG 167 ==
LOC: ICU 16:02 → MEDSURG 07-20 11:47
PROVIDERS: Admitting Provider Thoracic Surgery (Cardiothoracic Vascular Surgery); Visit Provider Thoracic Surgery (Cardiothoracic Vascular Surgery)
PROC: 0BBH4ZX Excision of Lung Lingula, Percutaneous Endoscopic Approach, Diagnostic (ICD-10-PCS; 2020-07-19 12:40)
DX: R91.8 Other nonspecific abnormal finding of lung field (principal); J95.812 Postprocedural air leak; Z90.49 Acquired absence of other specified parts of digestive tract; Z92.21 Personal history of antineoplastic chemotherapy; Z79.891 Long term (current) use of opiate analgesic; I10 Essential (primary) hypertension; K21.9 Gastro-esophageal reflux disease without esophagitis; M10.9 Gout, unspecified; Z98.890 Other specified postprocedural states; Z85.048 Personal history of other malignant neoplasm of rectum, rectosigmoid junction, and anus
CPT/HCPCS: 12345; 36415; 62324; 71045; 76942; 80048; 80053; 81003; 85025; 85610; 86850; 86900; 86920; 88309; 88342; 93005; 94664; J0330; J0690; J1100; J1642; J1885; J2250; J2370; J2405; J2704; J2795; J3010; J3490; J7030

== ENCOUNTER 2020-08-06 11:14 | Outpatient (CLI) | payer MEDICARE, OTHER, SELFPAY ==
--- NOTE | 2020-08-06 15:37 | ONC FU_ITS ---
Dr. Lyman Patient Follow-Up Note Patient: Elio Squires Unit #: [id number]: 1955 Dicatated By: Mario Lyman M.D.Date of Visit:Aug 06, 2020 Onc Med Follow-up/Prog Note Chief Complaint: Rectal cancer. History of Present Illness: This is a 65 year-old man with metastatic rectal cancer, stage KAITLIN (ypT3, ypN0, ypM1a). Microsatellite instability studies were performed and his tumor showed normal expression of DNA mismatch repair proteins. He had multiple liver metastases at initial presentation in September of 2008. He had a very good response to initial chemotherapy with FOLFOX/Avastin. In February of 2009 he underwent laparoscopic low anterior resection with left hepatic lobectomy. Pathology showed invasive moderately differentiated adenocarcinoma of the rectum which was invading through the muscularis propria into the subserosa more than 5 mm beyond the border of the muscularis propria. It measured 3 x 2.5 x 0.6 cm. There was no involvement in 29 lymph nodes. The left hepatic lobectomy showed metastatic colonic adenocarcinoma. He did receive additional chemotherapy postoperatively, and he also underwent additional treatment to the liver, which included microwave ablation and wedge resection. He subsequently underwent several chemoembolization procedures. He started second line chemotherapy with FOLFIRI/Avastin in April of 2011 after he was again showing evidence of disease progression in the liver. He had a good response by CEA level and by followup CT scan. We had subsequently changed his treatment to an irinotecan/Xeloda regimen, still in combination with Avastin. He did have a dose reduction in the Xeloda with the second cycle due to diarrhea and hand/foot syndrome. He had then tolerated treatment well with the irinotecan dosed every 4 weeks and the Xeloda administered on a 7 days on/7 days off schedule. However, he eventually did have more side effects with the Xeloda, even with further dose reductions. As of September 2013 the Xeloda was omitted, and he then continued treatment with irinotecan every 4 weeks and Avastin on a 2-week dosing schedule. His restaging CT chest, abdomen, and pelvis on 11/03/2016 reported new subcentimeter noncalcified pulmonary nodules in the upper lobes bilaterally which were new from a prior study in 2008. The abdomen showed a right lateral hepatic sub-capsular 14 mm low-attenuation lesion of uncertain significance. Metastasis could not be excluded. There was no other evidence of disease progression, and he continued the same treatment. He began cycle 55 of irinotecan/Avastin on 01/02/2017. At that time we discussed options for his further treatment. Given his long period of stability, we opted to stop the chemotherapy and just continue treatment with single agent Avastin. He began the first cycle of single agent Avastin on 01/16/2017. He then continued the Avastin on a 3-week dosing schedule. Beginning in August 2017 there was an increase in his creatinine to 1.3 mg/dL, and it continued to gradually increase thereafter, up to a maximum 1.6 mg/dL on 12/10/2017, at which point his Avastin was put on hold. His blood pressure during that time had been well controlled. As of 03/27/2018 the creatinine was back down to 1.3 mg/dL. His CEA was stable at 2.5 ng/mL. However, at that point there was a significant increase in his liver enzymes. His CT abdomen/pelvis on 04/03/2018 showed no evidence of recurrent or metastatic disease, and he continued on observation/expectant management. During subsequent follow-up there was a slight further increase in the CEA level, but his clinical status remained stable and the CEA level had subsequently stabilized. His restaging CT scans of the chest, abdomen, and pelvis on 04/16/2020 showed a right middle lobe nodule measuring 0.6 cm as well as other small calcified and noncalcified nodules which all appeared unchanged. A new nodule was noted in the lingula of the left lobe adjacent to the cardiac border measuring 1.7 cm. There was no change in the appearance of the liver, and there was otherwise no evidence of disease progression. Restaging PET/CT on 05/08/2020 showed an FDG avid lingular nodule measuring 1.6 x 1.8 cm, SUV 6.9, indicating high probability of malignancy. Subcentimeter right-sided pulmonary nodules were FDG negative. An anterior left upper lobe nodule measuring 7 mm was minimally FDG positive, felt to be concerning for malignancy. Mediastinal lymph nodes demonstrated mild FDG activity in bilateral hilar, right paratracheal, subaortic, and subcarinal territories. These were felt to be most likely reactive. A repeat chest CT on 08/01/2020 showed further increase in the lingular nodule measuring 1.4 x 2.4 cm. The left upper lobe pulmonary nodule was felt to be slightly larger, measuring 7 mm compared to 5 mm. The remainder of the noncalcified pulmonary nodules appeared unchanged. There was no mediastinal or hilar lymphadenopathy noted. With those findings, we opted to proceed with surgical resection. On 07/19/2020 he underwent left thoracoscopy with inferior segmentectomy of the lingula of the left upper lobe. Pathology showed moderately differentiated multifocal adenocarcinoma with the largest focus measuring 2 cm. There was evidence for lymphovascular invasion. The margins were uninvolved, with the closest margin measured at 0.3 cm. The tumor was noted to be strongly positive for CDX2, CEA, CK20, MCK, and CK 8/18, consistent with metastatic rectal adenocarcinoma. The PD-L1 expression to IHC 22C3 was less than 1%. His medical history is otherwise significant for hypertension, which had developed during treatment for the rectal cancer. It had been managed adequately with medication. Within the past 2 months he developed a significant skin eruption, felt to be consistent with irritant contact dermatitis. He has no other underlying medical illnesses. He is seen for a follow-up visit. He has had an uneventful recovery following the surgery earlier this month. He has had some ongoing issues with the skin eruption. It is not as severe as it had been initially, but it did flareup recently in his right hand and also in the areas around his recent incision sites. He has pretty good energy. His activity is still somewhat restricted following the surgery. His ECOG score is 1. He has good appetite. He has not had fever. He does report having some mild sweating in his upper body about every couple of nights, and that is something new. He has no shortness of breath, cough, or chest pain. He has no GI or complaints. He has no significant joint or bone pain. He has no focal neurologic symptoms. Medications: Metoprolol Tartrate 1 (50 mg) Tablet Oral b.i.d. Allergies: No Known Allergies. Vital Signs: Performed on Aug 06, 2020 11:31 Height - 68.00 in Weight - 215.2 lbs (LOW) BSA - 2.11 sq.m BMI - 32.72 (HIGH) Temperature - 97.1 F (LOW) Pulse - 73 /min Respiration - 18 /min BP - 183/95 mm(hg) (HIGH) O2 Sat - 98 % Pain - 0 Fatigue - 0 Physical Examination: Constitutional - He looks good generally, Eyes - Sclerae nonicteric. Conjunctivae clear, ENMT - No lesions noted in the oral cavity, Hematologic/Lymphatic - No cervical, clavicular, or axillary adenopathy, Respiratory - Lungs are clear with good air movement bilaterally, Cardiovascular - Heart rhythm is regular. There is no murmur, gallop, or rub noted, Abdomen - Soft. Liver and spleen are not enlarged. There is no abdominal mass or ascites noted and there is no inguinal adenopathy, Extremities - No edema, Integumentary - He has scattered patches of erythema. The most significant areas of involvement are on the right hand and in the area around his recent incision sites on the left side of the back, Neurologic - No focal neurologic deficits noted. Problem List: 1. Metastatic rectal cancer, diagnosed in September 2008. 2. Hypertension. 3. He has had a skin eruption thought to be consistent with contact dermatitis. Problems Addressed with this Encounter and Plan: 1. Patient with metastatic rectal cancer, MSI proficient, diagnosed in September 2008. He had a very good response to initial chemotherapy with FOLFOX/Avastin. He then underwent laparoscopic low anterior resection with left hepatic lobectomy in February 2009. Pathology showed moderately differentiated adenocarcinoma measuring 3 x 2.5 x 0.6 cm with invasion into the subserosa. There was no involvement in 29 lymph nodes. Final staging was ypT3, ypN0, ypM1a. He received additional postoperative chemotherapy as well as liver directed therapy, including microwave ablation, wedge resection, and several chemoembolization procedures. In April 2011 he began second line chemotherapy with FOLFIRI/Avastin due to disease progression in the liver. He had a good response. His treatment was changed to irinotecan/Xeloda in combination with Avastin due to side effects. He had tolerated it well initially, though he continued to have symptoms of hand/foot syndrome and diarrhea even at a reduced dosage of the Xeloda. The Xeloda was discontinued, and as of September 2013 his treatment was limited to just irinotecan and Avastin. Beginning in January 2017 the irinotecan was stopped and he continued with Avastin monotherapy. It was put on hold in December 2017 due to a decline in renal function. His surveillance CT scans on 04/16/2020 showed a new pulmonary nodule in the lingula. This was found to be FDG avid by PET. His repeat chest CT on 06/30/2000 showed further increase in the size of the lingular nodule. As there were no other areas of obvious disease progression, on 07/19/2020 he proceeded with left thoracoscopy and inferior segmentectomy of the lingula of the left upper lobe. Pathology showed moderately differentiated adenocarcinoma consistent with metastatic rectal cancer. The tumor measured 2 cm in maximum dimension. The closest margin was 0.3 cm. He appears to be showing a good recovery from his surgery. I reviewed the pathology results with the patient and his . As his disease has been resected, in the absence of any other sites of disease progression, he can remain on observation/expectant management. The main concern is the left upper lobe pulmonary nodule which did show mild FDG uptake on the PET scan. This will require close monitoring, and I will schedule restaging CT scans a 3-month interval. In the meantime, I also will request next generation sequencing on the lung tumor, as it is an almost certainty that he will require additional treatment some time in the future. 2. Hypertension. It is not being controlled adequately with metoprolol at 50 mg twice daily. I will now have him start amlodipine at 5 mg daily. 3. He has a skin eruption which was felt to be consistent with a contact type dermatitis. He continues to have some flareups. He has been getting some relief of the itching with Benadryl. I am going to have him start cetirizine 10 mg daily in the morning along with famotidine 20 mg daily, and he can continue the Benadryl as needed. Signed By: Mario Lyman M.D. <<Signature on File>>
== END 2020-08-06 11:15 | disposition home or self-care (01) ==
PROVIDERS: Visit Provider Internal Medicine Medical Oncology
DX: C20 Malignant neoplasm of rectum (principal); C78.02 Secondary malignant neoplasm of left lung; C78.7 Secondary malignant neoplasm of liver and intrahepatic bile duct; R21 Rash and other nonspecific skin eruption; R91.1 Solitary pulmonary nodule; I10 Essential (primary) hypertension; Z90.2 Acquired absence of lung [part of]
CPT/HCPCS: 96523; 99215

== ENCOUNTER 2020-09-17 10:58 | Outpatient (CLI) | payer MEDICARE, OTHER, SELFPAY ==
[2020-09-17 11:36] LABS: Basophils # 0.1 10^3/uL (0.0-0.1); Basophils % 1.4 %; Eosinophils # 0.7 10^3/uL (0.0-0.8); Hematocrit 43.4 % (42.0-52.0); Hemoglobin 14.5 g/dL (11.7-16.6); Lymphocytes # 1.7 10^3/uL (0.8-4.8); Lymphocytes % 21.4 %; Mean Corpuscular HGB Conc 33.4 g/dL (30.0-36.0); Mean Corpuscular Hemoglobin 31.1 pg (28.0-34.0); Mean Corpuscular Volume 93.1 fL (80-94); Mean Platelet Volume 11.3 fL (7.4-10.4); Monocytes # 0.7 10^3/uL (0.2-0.9); Monocytes % 8.5 %; Neutrophils # 4.66 10^3/uL (1.8-7.7); Neutrophils % 59.4 %; Nucleated Red Blood Cells % 0 %; Platelet Count 200 10^3/cmm (130-400); Red Blood Count 4.66 10^6/uL (4.1-5.3); Red Cell Distribution Width 12.9 % (12.1-15.1); White Blood Count 7.9 10^3/uL (4.0-10.0)
--- NOTE | 2020-09-17 11:47 | CT_ITS ---
WS: [id number] CT CHEST, ABDOMEN AND PELVIS WITH CONTRAST HISTORY: RECTAL CANCER TECHNIQUE: Contiguous 5 mm axial imaging performed through the chest, abdomen and pelvis with IV cont rast, oral contrast has been provided. Coronal and sagittal reformats chest. Coronal and sagittal ref ormats through the abdomen and pelvis. All CT scans at [facility] use at least one of the se dose optimization techniques: automated exposure control; mA and/or kV adjustment per patient size (includes targeted exams where dose is matched to clinical indication); or iterative reconstruction. CONTRAST: Omnipaque 300; 95 mL IV. DLP: 2194.26 mGy.cm COMPARISON: 06/30/2019, 07/06/[address]: Partial LEFT upper lobectomy. Postsurgical sutures are present. Previously described nodule at the lingula has been removed. Post operative changes and atelectasis in the LEFT lower lobe and a t the lingula. Nodule at the LEFT apex continues to increase in size. Nodule now measures 9 mm. There are numerous additional scattered pulmonary nodules which have been present on prior studies. No def inite significant enlargement. There has been a slight increase in the size and number of the mediast inal and hilar lymph nodes. RIGHT hilar lymph node measures 10 mm. Lymphoid tissue at the hilar regio ns bilaterally is slightly increased along with the paratracheal lymph nodes. Mild atherosclerosis of aorta. LEFT subclavian Port-A-Cath. Abdomen CT: Resection of the LEFT lobe of the liver. Low-density lesion in the periphery of the RIGHT lobe of the liver is unchanged. No new lesions. Prior cholecystectomy. Spleen and pancreas and adren al glands are negative. Mild atherosclerosis aorta. Mild cortical thinning of each kidney with no obs truction. No adenopathy or ascites. Umbilical hernia contains a loop of small bowel but not causing o bstruction. Pelvic CT: No free fluid in the pelvis. Urinary bladder is minimally distended. Mild prominence of th e prostate gland. A few diverticula in the distal colon. Increase in lumbar lordosis. Multilevel moderate spondylitic changes in the visualized spine. CT/CT chest abd pel w con* IMPRESSION: 1. Status post partial LEFT upper lobectomy since the prior study. 2. Slight increase in size of the remaining LEFT upper lobe pulmonary nodule n ow measuring 9 mm. 3. Additional numerous, subcentimeter nodules within both lungs without signif icant change. 4. There has been a slight increase in the size and number of the mediastinal and hilar lymph nodes. Cannot exclude early metastatic disease. 5. LEFT hepatectomy with no other interval change in appearance of the liver. 6. No adrenal mass. 7. No ascites. 8. Umbilical hernia contains nonobstructed small bowel loop.
[2020-09-17 12:26] LABS: Carcinoembryonic Antigen 4.8 ng/mL (0.0-4.7)
[2020-09-17 12:40] LABS: Alanine Aminotransferase 18 U/L (0-41); Alkaline Phosphatase 134 IU/L (40-130); Anion Gap 13.5 (5-19); Aspartate Amino Transferase 16 U/L (0-40); Blood Urea Nitrogen 17 mg/dL (8-23); Calcium 8.4 mg/dL (8.5-10.5); Carbon Dioxide 24 mmol/L (22-29); Chloride 103 mmol/L (98-107); Globulin 2.8 g/dL (1.3-4.6); Glomerular Filtration Rate 60.4 mL/min (90-130); Glucose 94 mg/dL (65-115); Osmolality Calculated 283 mOsm/kg (285-295); Potassium 4.5 mmol/L (3.5-5.1); Sodium 136 mmol/L (136-145); Total Bilirubin 0.4 mg/dL (0.15-1.2); Total Protein 6.8 g/dL (6.6-8.7)
[2020-09-17] MEDS: iohexol 300 mg/mL 50 mL Btl PO (13:06)
[2020-09-17] MEDS: iodixanol 320 mg/mL 100mL Btl IV (13:13)
== END 2020-09-17 10:59 | disposition home or self-care (01) ==
PROVIDERS: Visit Provider Internal Medicine Medical Oncology
DX: C20 Malignant neoplasm of rectum (principal); C78.7 Secondary malignant neoplasm of liver and intrahepatic bile duct; C78.02 Secondary malignant neoplasm of left lung; K42.9 Umbilical hernia without obstruction or gangrene
CPT/HCPCS: 36415; 71260; 74177; 80053; 82378; 85025; Q9967

== ENCOUNTER 2020-09-20 05:46 | Outpatient (CLI) | payer MEDICARE, OTHER, SELFPAY ==
--- NOTE | 2020-09-22 06:35 | ONC FU_ITS ---
Dr. Lyman Patient Follow-Up Note Patient: Elio Squires Unit #: [id number]: 1955 Dicatated By: Mario Lyman M.D.Date of Visit:Sep 20, 2020 Onc Med Follow-up/Prog Note Chief Complaint: Rectal cancer. History of Present Illness: This is a 65 year-old man with metastatic rectal cancer, stage KAITLIN (ypT3, ypN0, ypM1a). Microsatellite instability studies were performed and his tumor showed normal expression of DNA mismatch repair proteins. He had multiple liver metastases at initial presentation in September of 2008. He had a very good response to initial chemotherapy with FOLFOX/Avastin. In February of 2009 he underwent laparoscopic low anterior resection with left hepatic lobectomy. Pathology showed invasive moderately differentiated adenocarcinoma of the rectum which was invading through the muscularis propria into the subserosa more than 5 mm beyond the border of the muscularis propria. It measured 3 x 2.5 x 0.6 cm. There was no involvement in 29 lymph nodes. The left hepatic lobectomy showed metastatic colonic adenocarcinoma. He did receive additional chemotherapy postoperatively, and he also underwent additional treatment to the liver, which included microwave ablation and wedge resection. He subsequently underwent several chemoembolization procedures. He started second line chemotherapy with FOLFIRI/Avastin in April of 2011 after he was again showing evidence of disease progression in the liver. He had a good response by CEA level and by followup CT scan. We had subsequently changed his treatment to an irinotecan/Xeloda regimen, still in combination with Avastin. He did have a dose reduction in the Xeloda with the second cycle due to diarrhea and hand/foot syndrome. He had then tolerated treatment well with the irinotecan dosed every 4 weeks and the Xeloda administered on a 7 days on/7 days off schedule. However, he eventually did have more side effects with the Xeloda, even with further dose reductions. As of September 2013 the Xeloda was omitted, and he then continued treatment with irinotecan every 4 weeks and Avastin on a 2-week dosing schedule. His restaging CT chest, abdomen, and pelvis on 11/03/2016 reported new subcentimeter noncalcified pulmonary nodules in the upper lobes bilaterally which were new from a prior study in 2008. The abdomen showed a right lateral hepatic sub-capsular 14 mm low-attenuation lesion of uncertain significance. Metastasis could not be excluded. There was no other evidence of disease progression, and he continued the same treatment. He began cycle 55 of irinotecan/Avastin on 01/02/2017. At that time we discussed options for his further treatment. Given his long period of stability, we opted to stop the chemotherapy and just continue treatment with single agent Avastin. He began the first cycle of single agent Avastin on 01/16/2017. He then continued the Avastin on a 3-week dosing schedule. Beginning in August 2017 there was an increase in his creatinine to 1.3 mg/dL, and it continued to gradually increase thereafter, up to a maximum 1.6 mg/dL on 12/10/2017, at which point his Avastin was put on hold. His blood pressure during that time had been well controlled. As of 03/27/2018 the creatinine was back down to 1.3 mg/dL. His CEA was stable at 2.5 ng/mL. However, at that point there was a significant increase in his liver enzymes. His CT abdomen/pelvis on 04/03/2018 showed no evidence of recurrent or metastatic disease, and he continued on observation/expectant management. During subsequent follow-up there was a slight further increase in the CEA level, but his clinical status remained stable and the CEA level had subsequently stabilized. His restaging CT scans of the chest, abdomen, and pelvis on 04/16/2020 showed a right middle lobe nodule measuring 0.6 cm as well as other small calcified and noncalcified nodules which all appeared unchanged. A new nodule was noted in the lingula of the left lobe adjacent to the cardiac border measuring 1.7 cm. There was no change in the appearance of the liver, and there was otherwise no evidence of disease progression. Restaging PET/CT on 05/08/2020 showed an FDG avid lingular nodule measuring 1.6 x 1.8 cm, SUV 6.9, indicating high probability of malignancy. Subcentimeter right-sided pulmonary nodules were FDG negative. An anterior left upper lobe nodule measuring 7 mm was minimally FDG positive, felt to be concerning for malignancy. Mediastinal lymph nodes demonstrated mild FDG activity in bilateral hilar, right paratracheal, subaortic, and subcarinal territories. These were felt to be most likely reactive. A repeat chest CT on 08/01/2020 showed further increase in the lingular nodule measuring 1.4 x 2.4 cm. The left upper lobe pulmonary nodule was felt to be slightly larger, measuring 7 mm compared to 5 mm. The remainder of the noncalcified pulmonary nodules appeared unchanged. There was no mediastinal or hilar lymphadenopathy noted. With those findings, we opted to proceed with surgical resection. On 07/19/2020 he underwent left thoracoscopy with inferior segmentectomy of the lingula of the left upper lobe. Pathology showed moderately differentiated multifocal adenocarcinoma with the largest focus measuring 2 cm. There was evidence for lymphovascular invasion. The margins were uninvolved, with the closest margin measured at 0.3 cm. The tumor was noted to be strongly positive for CDX2, CEA, CK20, MCK, and CK 8/18, consistent with metastatic rectal adenocarcinoma. The PD-L1 expression to IHC 22C3 was less than 1%. His medical history is otherwise significant for hypertension, which had developed during treatment for the rectal cancer. It had been managed adequately with medication. Within the past 2 months he developed a significant skin eruption, felt to be consistent with irritant contact dermatitis. His other medical illnesses have been limited to GERD and allergic rhinitis. INTERIM HISTORY: Restaging CT scans of the chest, abdomen, and pelvis on 09/17/2020 showed changes of partial left upper lobectomy. There was atelectasis noted in the left lower lobe and at the lingula. The nodule at the left apex was noted to have increased in size, measuring 9 mm. Numerous additional scattered pulmonary nodules appeared stable. There was a slight increase in the size and number of mediastinal and hilar lymph nodes with a right hilar lymph node measuring 10 mm. There was no change in the appearance of the liver. There was evidence of umbilical hernia containing nonobstructed small bowel loop. He is seen for a follow-up visit. He has been feeling fine. He still has somewhat limited activity, but he is working around the house. ECOG score is 1. He has good appetite. He has no fever or night sweats. He has some allergy related symptoms including watery eyes and runny nose. He has no shortness of breath, cough, or chest pain. He has had some mild acid reflux symptoms. He has no other GI or complaints. He colonel he is not having any significant joint or bone pain. He does not complain of headache or dizziness, and he has no residual neuropathy symptoms. Medications: Lisinopril 1 Tablet (of 40 mg) Oral daily, Metoprolol Tartrate 1 (50 mg) Tablet Oral b.i.d. Allergies: No Known Allergies. Vital Signs: Performed on Sep 20, 2020 14:29 Height - 68.00 in Weight - 215.8 lbs (HIGH) BSA - 2.11 sq.m BMI - 32.81 (HIGH) Temperature - 98.1 F (LOW) Pulse - 77 /min Respiration - 18 /min BP - 173/97 mm(hg) (HIGH) O2 Sat - 98 % Pain - 0 Fatigue - 0 Physical Examination: Constitutional - He looks good generally, Eyes - Sclerae nonicteric. Conjunctivae clear, ENMT - No lesions noted in the oral cavity, Hematologic/Lymphatic - No cervical, clavicular, or axillary adenopathy, Respiratory - Lungs are clear with good air movement bilaterally, Cardiovascular - Heart rhythm is regular. There is no murmur, gallop, or rub noted, Abdomen - Soft. Liver and spleen are not enlarged. There is no abdominal mass or ascites noted and there is no inguinal adenopathy, Extremities - No edema, Integumentary - There is currently no skin eruption, Neurologic - No focal neurologic deficits noted. Lab/Imaging: CBC shows hemoglobin 14.5 g, white blood cell count 7900, and platelet count 200,000. Comprehensive metabolic profile shows stable renal function with BUN 17 and creatinine 1.2 mg/dL. Bilirubin and liver enzymes are normal. CEA is up slightly at 4.8 ng/mL. Problem List: 1. Metastatic rectal cancer, diagnosed in September 2008. 2. Hypertension. 3. GERD. 4. Allergic rhinitis. 5. He has had a skin eruption thought to be consistent with contact dermatitis. Problems Addressed with this Encounter and Plan: 1. Patient with metastatic rectal cancer, MSI proficient, diagnosed in September 2008. He had a very good response to initial chemotherapy with FOLFOX/Avastin. He then underwent laparoscopic low anterior resection with left hepatic lobectomy in February 2009. Pathology showed moderately differentiated adenocarcinoma measuring 3 x 2.5 x 0.6 cm with invasion into the subserosa. There was no involvement in 29 lymph nodes. Final staging was ypT3, ypN0, ypM1a. He received additional postoperative chemotherapy as well as liver directed therapy, including microwave ablation, wedge resection, and several chemoembolization procedures. In April 2011 he began second line chemotherapy with FOLFIRI/Avastin due to disease progression in the liver. He had a good response. His treatment was changed to irinotecan/Xeloda in combination with Avastin due to side effects. He had tolerated it well initially, though he continued to have symptoms of hand/foot syndrome and diarrhea even at a reduced dosage of the Xeloda. The Xeloda was discontinued, and as of September 2013 his treatment was limited to just irinotecan and Avastin. Beginning in January 2017 the irinotecan was stopped and he continued with Avastin monotherapy. It was put on hold in December 2017 due to a decline in renal function. His surveillance CT scans on 04/16/2020 showed a new pulmonary nodule in the lingula. This was found to be FDG avid by PET. His repeat chest CT on 06/30/2000 showed further increase in the size of the lingular nodule. As there were no other areas of obvious disease progression, on 07/19/2020 he proceeded with left thoracoscopy and inferior segmentectomy of the lingula of the left upper lobe. Pathology showed moderately differentiated adenocarcinoma consistent with metastatic rectal cancer. The tumor measured 2 cm in maximum dimension. The closest margin was 0.3 cm. He has had a good recovery from his surgery. His restaging CT scans showed a slight increase in the left apical pulmonary nodule, which is now suspicious for an additional site of metastatic involvement. I have reviewed the CT with Dr. Raza, and it does appear that it will be amenable to SBRT. As such, I will plan a 3-month interval chest CT. If the nodule continues to increase in size without evidence of other disease progression, he will be referred for radiation. 2. Hypertension. His current night being managed with metoprolol 50 mg twice daily and amlodipine 5 mg daily. He will require ongoing monitoring of blood pressure and further medication adjustment as indicated. 3. He is having some allergy related symptoms. He will be given a prescription for cetirizine 10 mg daily. 4. Has had recurrence of GERD symptoms. He will be prescribed famotidine 20 mg twice daily. Signed By: Mario Lyman M.D. <<Signature on File>>
== END 2020-09-20 05:47 | disposition home or self-care (01) ==
LOC: ONCMED 05:50
PROVIDERS: Visit Provider Internal Medicine Medical Oncology
DX: C78.02 Secondary malignant neoplasm of left lung (principal); Z85.048 Personal history of other malignant neoplasm of rectum, rectosigmoid junction, and anus; I10 Essential (primary) hypertension; K21.9 Gastro-esophageal reflux disease without esophagitis; R09.89 Other specified symptoms and signs involving the circulatory and respiratory systems; Z90.49 Acquired absence of other specified parts of digestive tract; Z79.899 Other long term (current) drug therapy; Z90.2 Acquired absence of lung [part of]; Z92.21 Personal history of antineoplastic chemotherapy
CPT/HCPCS: 96523; 99214

== ENCOUNTER 2020-10-22 09:58 | Outpatient (CLI) | payer MEDICARE, OTHER, SELFPAY | END 2020-10-22 09:59 | disposition home or self-care (01) | LOC: ONCMED 10:00 | PROVIDERS: Visit Provider Internal Medicine Medical Oncology | DX: Z45.2 Encounter for adjustment and management of vascular access device (principal) | CPT/HCPCS: 96523 ==

== ENCOUNTER 2020-11-26 10:42 | Outpatient (CLI) | payer MEDICARE, OTHER, SELFPAY | END 2020-11-26 10:43 | disposition home or self-care (01) | LOC: ONCMED 10:44 | PROVIDERS: Visit Provider Nurse Practitioner | DX: Z45.2 Encounter for adjustment and management of vascular access device (principal) | CPT/HCPCS: 96523 ==

== ENCOUNTER 2020-12-24 08:31 | Outpatient (CLI) | payer MEDICARE, OTHER, SELFPAY ==
--- NOTE | 2020-12-24 09:02 | CT_ITS ---
WS: [id number] CT CHEST, ABDOMEN AND PELVIS WITH CONTRAST. HISTORY: RECTAL CANCER TECHNIQUE: Contiguous 5 mm axial imaging performed through the chest, abdomen and pelvis with IV cont rast, oral contrast has been provided. Coronal and sagittal reformats chest. Coronal and sagittal ref ormats through the abdomen and pelvis. All CT scans at [facility] use at least one of the se dose optimization techniques: automated exposure control; mA and/or kV adjustment per patient size (includes targeted exams where dose is matched to clinical indication); or iterative reconstruction. CONTRAST: Omnipaque 300; 95 mL IV. DLP: 2303.33 mGy.cm COMPARISON: 09/17/2020 and 06/30/2020, 04/16/[address]: Status post partial LEFT upper lobectomy. Lobulated nodule in the LEFT upper lobe with no s ignificant increase in size since the most recent examination. Nodule is slightly more lobulated alth ough the maximum diameter is only 10 mm. Cannot confirm increase or progression of lesion as these ch anges may be related to slice selection. Nodule has definitely increased in size since the study of 04/16/2020. There are additional scattered pulmonary nodules which are subcentimeter throughout both lungs. Not significantly changed. Additiona l areas of atelectasis at the lung bases. No effusion. Heart size is normal. Lymph node size and distribution is very similar to the study of 04/16/2020. Largest lymph nodes are 1 0 mm at the RIGHT hilum. Abdomen CT: Partial hepatectomy. There is diffuse low attenuation within the liver. Area of decreased attenuation in the RIGHT lobe of the liver is stable over multiple prior studies measuring 13 mm in largest diameter. No metastatic disease identified. Gallbladder is been removed. Normal size spleen. No adrenal mass. Pancreas normal. No bile duct dilatation. No ascites or adenopathy within the abdome n. Ventral abdominal wall hernia contains a loop of protruding small bowel with no obstruction. Sigmoid diverticula without acute diverticulitis. Pelvic CT: Normally distended urinary bladder. Very slight prostate gland enlargement. No ascites or adenopathy in the pelvis. No osteoblastic or osteolytic bone disease. Moderate spondylitic changes in the thoracic and lumbar s pines. Bilateral hip joint arthritis. CT/CT chest abd pel w con* IMPRESSION: 1. Status post partial LEFT upper lobectomy. 2. Lobulated 10 mm mass in the LEFT upper lobe and numerous scattered subcenti meter pulmonary nodules have not significantly changed since the most recent st udy of 09/17/2020. The lobulated nodule in the LEFT upper lobe has increased in s e slightly since 04/16/2020. 3. No significant change in the indeterminate mediastinal and hilar adenopathy . 4. Partial hepatectomy. Appearance of the liver is unchanged. 5. No adrenal mass. 6. No ascites or adenopathy in the abdomen or pelvis.
[2020-12-24 09:46] LABS: Basophils # 0.1 10^3/uL (0.0-0.1); Basophils % 1.5 %; Eosinophils # 0.6 10^3/uL (0.0-0.8); Eosinophils % 8.1 %; Hematocrit 44.2 % (42.0-52.0); Hemoglobin 14.4 g/dL (11.7-16.6); Lymphocytes # 1.7 10^3/uL (0.8-4.8); Lymphocytes % 24.4 %; Mean Corpuscular HGB Conc 32.6 g/dL (30.0-36.0); Mean Corpuscular Hemoglobin 30.9 pg (28.0-34.0); Mean Corpuscular Volume 94.8 fL (80-94); Monocytes # 0.6 10^3/uL (0.2-0.9); Monocytes % 8.7 %; Neutrophils # 3.83 10^3/uL (1.8-7.7); Neutrophils % 56.9 %; Nucleated Red Blood Cells % 0 %; Platelet Count 181 10^3/cmm (130-400); Red Blood Count 4.66 10^6/uL (4.1-5.3); White Blood Count 6.8 10^3/uL (4.0-10.0)
[2020-12-24 10:18] LABS: Carcinoembryonic Antigen 4.1 ng/mL (0.0-4.7)
[2020-12-24 10:30] LABS: Alanine Aminotransferase 25 U/L (0-41); Albumin Level 3.7 g/dL (3.5-5.2); Alkaline Phosphatase 114 IU/L (40-130); Anion Gap 15.3 (5-19); Aspartate Amino Transferase 21 U/L (0-40); Blood Urea Nitrogen 22 mg/dL (8-23); Calcium 8.1 mg/dL (8.5-10.5); Carbon Dioxide 21 mmol/L (22-29); Chloride 109 mmol/L (98-107); Globulin 2.9 g/dL (1.3-4.6); Glomerular Filtration Rate 66.8 mL/min (90-130); Glucose 102 mg/dL (65-115); Osmolality Calculated 296 mOsm/kg (285-295); Potassium 4.3 mmol/L (3.5-5.1); Sodium 141 mmol/L (136-145); Total Bilirubin 0.4 mg/dL (0.15-1.2); Total Protein 6.6 g/dL (6.6-8.7)
[2020-12-24] MEDS: iohexol 300 mg/mL 100 mL Btl IV (10:43)
[2020-12-24] MEDS: iohexol 300 mg/mL 50 mL Btl PO (10:44)
== END 2020-12-24 08:32 | disposition home or self-care (01) ==
LOC: ONCMED 08:32 → RAD 08:57
PROVIDERS: Visit Provider Internal Medicine Medical Oncology
DX: C20 Malignant neoplasm of rectum (principal); C78.02 Secondary malignant neoplasm of left lung; C78.7 Secondary malignant neoplasm of liver and intrahepatic bile duct; Z79.899 Other long term (current) drug therapy
CPT/HCPCS: 36415; 36591; 71260; 74177; 80053; 82378; 85025

== ENCOUNTER 2020-12-27 14:18 | Outpatient (CLI) | payer MEDICARE, OTHER, SELFPAY ==
--- NOTE | 2020-12-29 07:09 | ONC FU_ITS ---
Dr. Lyman Patient Follow-Up Note Patient: Elio Squires Unit #: [id number]: 1955 Dicatated By: Mario Lyman M.D.Date of Visit:Dec 27, 2020 Onc Med Follow-up/Prog Note Chief Complaint: Rectal cancer. History of Present Illness: This is a 65 year-old man with metastatic rectal cancer, stage KAITLIN (ypT3, ypN0, ypM1a). Microsatellite instability studies were performed and his tumor showed normal expression of DNA mismatch repair proteins. He had multiple liver metastases at initial presentation in September of 2008. He had a very good response to initial chemotherapy with FOLFOX/Avastin. In February of 2009 he underwent laparoscopic low anterior resection with left hepatic lobectomy. Pathology showed invasive moderately differentiated adenocarcinoma of the rectum which was invading through the muscularis propria into the subserosa more than 5 mm beyond the border of the muscularis propria. It measured 3 x 2.5 x 0.6 cm. There was no involvement in 29 lymph nodes. The left hepatic lobectomy showed metastatic colonic adenocarcinoma. He did receive additional chemotherapy postoperatively, and he also underwent additional treatment to the liver, which included microwave ablation and wedge resection. He subsequently underwent several chemoembolization procedures. He started second line chemotherapy with FOLFIRI/Avastin in April of 2011 after he was again showing evidence of disease progression in the liver. He had a good response by CEA level and by followup CT scan. We had subsequently changed his treatment to an irinotecan/Xeloda regimen, still in combination with Avastin. He did have a dose reduction in the Xeloda with the second cycle due to diarrhea and hand/foot syndrome. He had then tolerated treatment well with the irinotecan dosed every 4 weeks and the Xeloda administered on a 7 days on/7 days off schedule. However, he eventually did have more side effects with the Xeloda, even with further dose reductions. As of September 2013 the Xeloda was omitted, and he then continued treatment with irinotecan every 4 weeks and Avastin on a 2-week dosing schedule. His restaging CT chest, abdomen, and pelvis on 11/03/2016 reported new subcentimeter noncalcified pulmonary nodules in the upper lobes bilaterally which were new from a prior study in 2008. The abdomen showed a right lateral hepatic sub-capsular 14 mm low-attenuation lesion of uncertain significance. Metastasis could not be excluded. There was no other evidence of disease progression, and he continued the same treatment. He began cycle 55 of irinotecan/Avastin on 01/02/2017. At that time we discussed options for his further treatment. Given his long period of stability, we opted to stop the chemotherapy and just continue treatment with single agent Avastin. He began the first cycle of single agent Avastin on 01/16/2017. He then continued the Avastin on a 3-week dosing schedule. Beginning in August 2017 there was an increase in his creatinine to 1.3 mg/dL, and it continued to gradually increase thereafter, up to a maximum 1.6 mg/dL on 12/10/2017, at which point his Avastin was put on hold. His blood pressure during that time had been well controlled. As of 03/27/2018 the creatinine was back down to 1.3 mg/dL. His CEA was stable at 2.5 ng/mL. However, at that point there was a significant increase in his liver enzymes. His CT abdomen/pelvis on 04/03/2018 showed no evidence of recurrent or metastatic disease, and he continued on observation/expectant management. During subsequent follow-up there was a slight further increase in the CEA level, but his clinical status remained stable and the CEA level had subsequently stabilized. His restaging CT scans of the chest, abdomen, and pelvis on 04/16/2020 showed a right middle lobe nodule measuring 0.6 cm as well as other small calcified and noncalcified nodules which all appeared unchanged. A new nodule was noted in the lingula of the left lobe adjacent to the cardiac border measuring 1.7 cm. There was no change in the appearance of the liver, and there was otherwise no evidence of disease progression. Restaging PET/CT on 05/08/2020 showed an FDG avid lingular nodule measuring 1.6 x 1.8 cm, SUV 6.9, indicating high probability of malignancy. Subcentimeter right-sided pulmonary nodules were FDG negative. An anterior left upper lobe nodule measuring 7 mm was minimally FDG positive, felt to be concerning for malignancy. Mediastinal lymph nodes demonstrated mild FDG activity in bilateral hilar, right paratracheal, subaortic, and subcarinal territories. These were felt to be most likely reactive. A repeat chest CT on 08/01/2020 showed further increase in the lingular nodule measuring 1.4 x 2.4 cm. The left upper lobe pulmonary nodule was felt to be slightly larger, measuring 7 mm compared to 5 mm. The remainder of the noncalcified pulmonary nodules appeared unchanged. There was no mediastinal or hilar lymphadenopathy noted. With those findings, we opted to proceed with surgical resection. On 07/19/2020 he underwent left thoracoscopy with inferior segmentectomy of the lingula of the left upper lobe. Pathology showed moderately differentiated multifocal adenocarcinoma with the largest focus measuring 2 cm. There was evidence for lymphovascular invasion. The margins were uninvolved, with the closest margin measured at 0.3 cm. The tumor was noted to be strongly positive for CDX2, CEA, CK20, MCK, and CK 8/18, consistent with metastatic rectal adenocarcinoma. The PD-L1 expression to IHC 22C3 was less than 1%. His medical history is otherwise significant for hypertension, which had developed during treatment for the rectal cancer. It had been managed adequately with medication. Within the past 2 months he developed a significant skin eruption, felt to be consistent with irritant contact dermatitis. His other medical illnesses have been limited to GERD and allergic rhinitis. INTERIM HISTORY: Restaging CT scans of the chest, abdomen, and pelvis on 09/17/2020 showed changes of partial left upper lobectomy. There was atelectasis noted in the left lower lobe and at the lingula. The nodule at the left apex was noted to have increased in size, measuring 9 mm. Numerous additional scattered pulmonary nodules appeared stable. There was a slight increase in the size and number of mediastinal and hilar lymph nodes with a right hilar lymph node measuring 10 mm. There was no change in the appearance of the liver. There was evidence of umbilical hernia containing nonobstructed small bowel loop. With those findings he continued expectant management. His restaging CT scans on 12/24/2020 showed slight increase in the lobulated left upper lobe pulmonary nodule. Numerous scattered subcentimeter pulmonary nodules were not significantly changed compared to the September 2020 study. There was no significant change in indeterminate mediastinal and hilar lymph nodes. There was no evidence for any other metastatic disease. He is seen for a follow-up visit. He has been feeling fine. He has good energy and activity tolerance. ECOG score is 0. He has good appetite. He has not had fever. He did have one recent episode of night sweating. He has no shortness of breath, cough, or chest pain. He has no GI complaints. He describes his urination as old mannish . He has no significant joint or bone pain. He does not complain of headache or dizziness and he has no residual neuropathy. Medications: Lisinopril 1 Tablet (of 40 mg) Oral daily, Metoprolol Tartrate 1 (50 mg) Tablet Oral b.i.d. Allergies: No Known Allergies. Vital Signs: Performed on Dec 27, 2020 14:30 Height - 68.00 in Weight - 218.4 lbs (HIGH) BSA - 2.12 sq.m BMI - 33.21 (HIGH) Temperature - 98.1 F (LOW) Pulse - 75 /min Respiration - 18 /min BP - 164/90 mm(hg) (HIGH) O2 Sat - 99 % Pain - 0 Physical Examination: Constitutional - He looks good generally, Eyes - Sclerae nonicteric. Conjunctivae clear, ENMT - No lesions noted in the oral cavity, Hematologic/Lymphatic - No cervical, clavicular, or axillary adenopathy, Respiratory - Lungs are clear with good air movement bilaterally, Cardiovascular - Heart rhythm is regular. There is no murmur, gallop, or rub noted, Abdomen - Soft. Liver and spleen are not enlarged. There is no abdominal mass or ascites noted and there is no inguinal adenopathy, Extremities - No edema, Integumentary - There is a raised skin lesion just above the upper lip on the right side and a smaller actinic type lesion in the right cheek area, Neurologic - No focal neurologic deficits noted. Lab/Imaging: CBC shows hemoglobin 14.4 g, white blood cell count 6800, and platelet count 181,000. Comprehensive metabolic profile is unremarkable. CEA stable at 4.1 ng/mL. Problem List: 1. Metastatic rectal cancer, diagnosed in September 2008. 2. Hypertension. 3. GERD. 4. Allergic rhinitis. 5. He has had a skin eruption thought to be consistent with contact dermatitis. Problems Addressed with this Encounter and Plan: 1. Patient with metastatic rectal cancer, MSI proficient, diagnosed in September 2008. He had a very good response to initial chemotherapy with FOLFOX/Avastin. He then underwent laparoscopic low anterior resection with left hepatic lobectomy in February 2009. Pathology showed moderately differentiated adenocarcinoma measuring 3 x 2.5 x 0.6 cm with invasion into the subserosa. There was no involvement in 29 lymph nodes. Final staging was ypT3, ypN0, ypM1a. He received additional postoperative chemotherapy as well as liver directed therapy, including microwave ablation, wedge resection, and several chemoembolization procedures. In April 2011 he began second line chemotherapy with FOLFIRI/Avastin due to disease progression in the liver. He had a good response. His treatment was changed to irinotecan/Xeloda in combination with Avastin due to side effects. He had tolerated it well initially, though he continued to have symptoms of hand/foot syndrome and diarrhea even at a reduced dosage of the Xeloda. The Xeloda was discontinued, and as of September 2013 his treatment was limited to just irinotecan and Avastin. Beginning in January 2017 the irinotecan was stopped and he continued with Avastin monotherapy. It was put on hold in December 2017 due to a decline in renal function. His surveillance CT scans on 04/16/2020 showed a new pulmonary nodule in the lingula. This was found to be FDG avid by PET. His repeat chest CT on 06/30/2000 showed further increase in the size of the lingular nodule. As there were no other areas of obvious disease progression, on 07/19/2020 he proceeded with left thoracoscopy and inferior segmentectomy of the lingula of the left upper lobe. Pathology showed moderately differentiated adenocarcinoma consistent with metastatic rectal cancer. The tumor measured 2 cm in maximum dimension. The closest margin was 0.3 cm. He has had a good recovery from his surgery. His restaging CT scans have shown a slight increase in the left apical pulmonary nodule, which is suspicious for an additional site of metastatic involvement. As yet there does not appear to be any other metastatic disease. Numerous smaller pulmonary nodules have remained stable and indeterminant mediastinal and hilar lymph nodes also appear stable. With those findings, I will plan to review the CT scans with Dr. Raza when he is available. My inclination is to proceed now with SBRT to the left upper lobe nodule. 2. He has a skin lesion just above his upper lip which has been bothering him because he repeatedly cuts it. I will get him scheduled to have it removed. Signed By: Mario Lyman M.D. <<Signature on File>>
== END 2020-12-27 14:19 | disposition home or self-care (01) ==
PROVIDERS: Visit Provider Internal Medicine Medical Oncology
DX: C78.02 Secondary malignant neoplasm of left lung (principal); C78.7 Secondary malignant neoplasm of liver and intrahepatic bile duct; C20 Malignant neoplasm of rectum; R91.8 Other nonspecific abnormal finding of lung field; Z90.2 Acquired absence of lung [part of]; Z92.21 Personal history of antineoplastic chemotherapy; Z79.899 Other long term (current) drug therapy
CPT/HCPCS: 99214

== ENCOUNTER 2021-03-10 06:35 | Outpatient (RCR) | payer MEDICARE, OTHER, SELFPAY ==
--- NOTE | 2021-02-24 14:50 | N.ONRAD NP_ITS ---
Radiation Oncology Consultation Patient Name: Elio Squires Date of : 1955 Date of Service: 02/24/2021 Attending Physician: David Raza M.D. Elio Hackett???Rc was seen for consultation this afternoon at the request of Dr. Lyman regarding possible stereotactic ablative body radiotherapy for the management of his metastatic colon cancer. The patient initially was diagnosed with a stage KAITLIN ([id number]) adenocarcinoma of the rectum with normal expression of DNA mismatch repair proteins and September 2008. The M1a designation was on account of liver metastases. Initial chemotherapy consisting of FOLFOX and Avastin. A laparoscopic low anterior resection with left hepatic lobectomy was performed in February 2009. Liver disease progression was noted and FOLFIRI and Avastin was started in April 2011. The chemotherapy regimen was changed to irinotecan and Xeloda. In September 2013, the Xeloda was discontinued secondary to adverse effects and irinotecan and Avastin were continued. Restaging CT imaging performed in October 2016 demonstrated new subcentimeter noncalcified pulmonary nodules and a low-attenuation lesion in the liver. Avastin chemotherapy was continued. In April [address] scan identified a new nodule in the lingula measuring 1.7 cm. PET/CT imaging confirmed hypermetabolic activity within the lingular nodule and an FDG +7 mm left upper lobe nodule worrisome for malignancy. A left segmentectomy of the lingula was performed in July 2020. Pathology confirmed metastatic adenocarcinoma. Thoracic CT scan ordered on December 24, 2020 identified an increase in the left upper lobe pulmonary nodule. A PET CT obtained on February 12, 2021 revealed a 1 cm left anterior upper lobe pulmonary nodule with a maximum SUV of 4 consistent with malignancy. No other evidence of metastatic disease was noted. The patient was evaluated for stereotactic ablative body radiotherapy to the left upper lobe pulmonary nodule. I discussed with Mr. Hackett???Josué the role of stereotactic ablative body radiotherapy for the management of oligometastatic disease according to the National comprehensive cancer network guidelines. I also reviewed the SABR-COMET trial that enrolled patients with a controlled primary malignancy and 1-5 metastatic lesions to SBRT or palliative standard of care. This radiotherapy modality provided a 22-month median overall survival benefit in comparison to palliative management. I anticipate an ultra-hypofractionated course of stereotactic radiotherapy. A 4-dimensional computed tomographic radiotherapy planning will be acquired to delineate the gross tumor volume preceding implementation of treatment. Potential toxicities of stereotactic body radiotherapy to the lung were reviewed. The patient has verbalized understanding and would like to proceed as recommended. His medical treatment plan was discussed with Mario Lyman M.D. Signed by: Dr. David Raza 02/24/2021 2:48:17 PM
--- NOTE | 2021-02-28 | CT_ITS ---
Radiation Therapy Planning CT images; total exam DLP: 1440.77 mGy-cm MTDD
--- NOTE | 2021-03-10 16:09 | N.ONRD TS_ITS ---
Stereotactic Ablative Radiation Treatment Summary Patient Name: Elio Squires Date of : 1955 Date of Service: 03/09/2021 Attending Physician: David Raza M.D. Elio Hackett???Rc has completed stereotactic ablative body radiotherapy for the management of a left upper lobe pulmonary nodule. He was initially was diagnosed with a stage KIATLIN ([id number]) adenocarcinoma of the rectum with normal expression of DNA mismatch repair proteins and September 2008. The M1a designation was on account of liver metastases A thoracic CT scan ordered on December 24, 2020 identified an increase in the left upper lobe pulmonary nodule. A PET CT obtained on February 12, 2021 revealed a 1 cm left anterior upper lobe pulmonary nodule with a maximum SUV of 4 consistent with malignancy. No other evidence of metastatic disease was noted. SABR was delivered between the dates of March 03, 2021 through March 10, 2021. A prescribed dose of 54 Gy was delivered in three fractions encompassing 8 elapsed days. The left upper lobe lesion was treated utilizing an intensity modulated radiotherapy plan with a step and shoot treatment technique. The plan required five co-planar gonzales and two non-coplanar ports. The coplanar gonzales were designed using gantry angles of 30???, 60???, 80???, 320???and 350??? and were associated with a collimator rotation of 0???. The minimum field size was 4.8 cm x 3.5 cm to a maximum of 5.5 cm x 4 cm. The planned SSD measured between a minimum of 89.6 cm to a maximum of 92.8 cm. The delivered monitor units for the referenced gantry angles were 1116 MU, 798 MU, 865 MU, 1184 MU, and 942 MU. An additional two non-coplanar ports were arranged with gantry angles of 25??? and 335??? and a collimator rotations of 0???. The couch angle was 85???. The non-coplanar portal gonzales measured 5.6 cm x 4 cm and 5 cm x 3 cm with SSD measurements of 90.4 cm and 93.1 cm. The non-coplanar ports administered 775 MU and 1057 MU. Low energy photons were prescribed. All treatments were performed with the Native linear accelerator and an isocentric technique. The dose was calculated by Anisotropic Analytic Algorithm with the plan normalized to deliver 100% of the prescription dose to 95% of the planning target volume. Signed by: Dr. David Raza 03/10/2021 4:07:47 PM
--- NOTE | 2021-03-10 16:12 | ONCRAD TMN_ITS ---
Stereotactic Ablative Radiotherapy Treatment Management Note Patient Name: Elio Squires Date of : 1955 Date of Service: 03/09/2021 Attending Physician: David Raza M.D. Elio Hackett???Josué is a 65 year-old white male diagnosed with metastatic colon cancer. The patient initially was diagnosed with a stage KAITLIN ([id number]) adenocarcinoma of the rectum with normal expression of DNA mismatch repair proteins and September 2008. The M1a designation was on account of liver metastases A thoracic CT scan ordered on December 24, 2020 identified an increase in the left upper lobe pulmonary nodule. A PET CT obtained on February 12, 2021 revealed a 1 cm left anterior upper lobe pulmonary nodule with a maximum SUV of 4 consistent with malignancy. No other evidence of metastatic disease was noted. The patient has received 54 Gy of a prescribed 54 Sanchez (SABR) delivered with an intensity modulated radiotherapy plan utilizing a step and shoot treatment technique to the left upper lobe pulmonary nodule. Upon review of systems, he denied any changes in her pulmonary function. On physical examination, the patient weighed 217 lbs. His temperature was 96.8 ???F with a blood pressure of 158/91 mmHg. The pulse was 63 bpm and his respiratory rate was 20. There was no erythema within the treatment gonzales. Stereotactic ablative body radiotherapy was completed today. Signed by: Dr. David Raza 03/10/2021 4:11:33 PM
== END 2021-03-10 23:59 | disposition home or self-care (01) ==
LOC: ONCMED 06:35
PROVIDERS: Visit Provider Radiology Radiation Oncology
DX: Z51.0 Encounter for antineoplastic radiation therapy (principal); C34.12 Malignant neoplasm of upper lobe, left bronchus or lung; Z85.048 Personal history of other malignant neoplasm of rectum, rectosigmoid junction, and anus; Z85.05 Personal history of malignant neoplasm of liver; Z79.899 Other long term (current) drug therapy
CPT/HCPCS: 77300; 77301; 77334; 77338; 77373; 77470; 96523; 99205

== ENCOUNTER 2021-04-08 06:22 | Outpatient (RCR) | payer MEDICARE, OTHER, SELFPAY ==
--- NOTE | 2021-04-08 10:59 | ONCRAD EPV_ITS ---
Radiation Oncology Follow-Up Note Patient Name: Elio Squires Date of : 1955 Date of Service: 04/08/2021 Attending Physician: David Raza M.D. Elio Hackett???Josué returned to my office this morning for a routinely scheduled follow-up appointment. He completed stereotactic ablative body radiotherapy in February for the management of a left upper lobe pulmonary nodule. He was initially was diagnosed with a stage KAITLIN ([id number]) adenocarcinoma of the rectum with normal expression of DNA mismatch repair proteins and September 2008. The M1a designation was on account of liver metastases A thoracic CT scan ordered on December 24, 2020 identified an increase in the left upper lobe pulmonary nodule. A PET CT obtained on February 12, 2021 revealed a 1 cm left anterior upper lobe pulmonary nodule with a maximum SUV of 4 consistent with malignancy. No other evidence of metastatic disease was noted. SABR was delivered between the dates of March 03, 2021 through March 10, 2021. A prescribed dose of 54 Gy was delivered in three fractions encompassing 8 elapsed days. On review of systems, he patient denied any new pulmonary complaints. On physical examination, he weighed 219 lbs. The temperature was 98 ???F and his blood pressure was 152/91 mmHg. The pulse was 74 bpm and his respiratory rate was 20 breaths per minute. Oxygen saturation while breathing room air was 98 %. Bronchovesicular breath sounds were auscultated. In summary, Mr. Hackett???Josué returned for a routine post radiotherapy follow-up. There were no sequelae from treatment. He will be scheduled for CT imaging to assess treatment response according to NCCN Guidelines. Signed by: Dr. David Raza 04/08/2021 10:59:16 AM
== END 2021-04-10 23:59 | disposition home or self-care (01) ==
LOC: ONCMED 06:22
PROVIDERS: Visit Provider Radiology Radiation Oncology
DX: Z08 Encounter for follow-up examination after completed treatment for malignant neoplasm (principal); Z85.118 Personal history of other malignant neoplasm of bronchus and lung; Z92.3 Personal history of irradiation
CPT/HCPCS: 96523; 99024

== ENCOUNTER 2021-04-28 06:38 | Outpatient (RCR) | payer MEDICARE, OTHER, SELFPAY ==
--- NOTE | 2021-05-01 13:59 | ONC FU_ITS ---
Dr. Lyman Patient Follow-Up Note Patient: Elio Squires Unit #: [id number]: 1955 Dicatated By: Mario Lyman M.D.Date of Visit:Apr 28, 2021 Onc Med Follow-up/Prog Note Chief Complaint: Rectal cancer. History of Present Illness: This is a 65 year-old man with metastatic rectal cancer, stage KAITLIN (ypT3, ypN0, ypM1a). Microsatellite instability studies were performed and his tumor showed normal expression of DNA mismatch repair proteins. He had multiple liver metastases at initial presentation in September of 2008. He had a very good response to initial chemotherapy with FOLFOX/Avastin. In February of 2009 he underwent laparoscopic low anterior resection with left hepatic lobectomy. Pathology showed invasive moderately differentiated adenocarcinoma of the rectum which was invading through the muscularis propria into the subserosa more than 5 mm beyond the border of the muscularis propria. It measured 3 x 2.5 x 0.6 cm. There was no involvement in 29 lymph nodes. The left hepatic lobectomy showed metastatic colonic adenocarcinoma. He did receive additional chemotherapy postoperatively, and he also underwent additional treatment to the liver, which included microwave ablation and wedge resection. He subsequently underwent several chemoembolization procedures. He started second line chemotherapy with FOLFIRI/Avastin in April of 2011 after he was again showing evidence of disease progression in the liver. He had a good response by CEA level and by followup CT scan. We had subsequently changed his treatment to an irinotecan/Xeloda regimen, still in combination with Avastin. He did have a dose reduction in the Xeloda with the second cycle due to diarrhea and hand/foot syndrome. He had then tolerated treatment well with the irinotecan dosed every 4 weeks and the Xeloda administered on a 7 days on/7 days off schedule. However, he eventually did have more side effects with the Xeloda, even with further dose reductions. As of September 2013 the Xeloda was omitted, and he then continued treatment with irinotecan every 4 weeks and Avastin on a 2-week dosing schedule. His restaging CT chest, abdomen, and pelvis on 11/03/2016 reported new subcentimeter noncalcified pulmonary nodules in the upper lobes bilaterally which were new from a prior study in 2008. The abdomen showed a right lateral hepatic sub-capsular 14 mm low-attenuation lesion of uncertain significance. Metastasis could not be excluded. There was no other evidence of disease progression, and he continued the same treatment. He began cycle 55 of irinotecan/Avastin on 01/02/2017. At that time we discussed options for his further treatment. Given his long period of stability, we opted to stop the chemotherapy and just continue treatment with single agent Avastin. He began the first cycle of single agent Avastin on 01/16/2017. He then continued the Avastin on a 3-week dosing schedule. Beginning in August 2017 there was an increase in his creatinine to 1.3 mg/dL, and it continued to gradually increase thereafter, up to a maximum 1.6 mg/dL on 12/10/2017, at which point his Avastin was put on hold. His blood pressure during that time had been well controlled. As of 03/27/2018 the creatinine was back down to 1.3 mg/dL. His CEA was stable at 2.5 ng/mL. However, at that point there was a significant increase in his liver enzymes. His CT abdomen/pelvis on 04/03/2018 showed no evidence of recurrent or metastatic disease, and he continued on observation/expectant management. During subsequent follow-up there was a slight further increase in the CEA level, but his clinical status remained stable and the CEA level had subsequently stabilized. His restaging CT scans of the chest, abdomen, and pelvis on 04/16/2020 showed a right middle lobe nodule measuring 0.6 cm as well as other small calcified and noncalcified nodules which all appeared unchanged. A new nodule was noted in the lingula of the left lobe adjacent to the cardiac border measuring 1.7 cm. There was no change in the appearance of the liver, and there was otherwise no evidence of disease progression. Restaging PET/CT on 05/08/2020 showed an FDG avid lingular nodule measuring 1.6 x 1.8 cm, SUV 6.9, indicating high probability of malignancy. Subcentimeter right-sided pulmonary nodules were FDG negative. An anterior left upper lobe nodule measuring 7 mm was minimally FDG positive, felt to be concerning for malignancy. Mediastinal lymph nodes demonstrated mild FDG activity in bilateral hilar, right paratracheal, subaortic, and subcarinal territories. These were felt to be most likely reactive. A repeat chest CT on 08/01/2020 showed further increase in the lingular nodule measuring 1.4 x 2.4 cm. The left upper lobe pulmonary nodule was felt to be slightly larger, measuring 7 mm compared to 5 mm. The remainder of the noncalcified pulmonary nodules appeared unchanged. There was no mediastinal or hilar lymphadenopathy noted. With those findings, we opted to proceed with surgical resection. On 07/19/2020 he underwent left thoracoscopy with inferior segmentectomy of the lingula of the left upper lobe. Pathology showed moderately differentiated multifocal adenocarcinoma with the largest focus measuring 2 cm. There was evidence for lymphovascular invasion. The margins were uninvolved, with the closest margin measured at 0.3 cm. The tumor was noted to be strongly positive for CDX2, CEA, CK20, MCK, and CK 8/18, consistent with metastatic rectal adenocarcinoma. The PD-L1 expression to IHC 22C3 was less than 1%. His medical history is otherwise significant for hypertension, which had developed during treatment for the rectal cancer. It had been managed adequately with medication. Within the past 2 months he developed a significant skin eruption, felt to be consistent with irritant contact dermatitis. His other medical illnesses have been limited to GERD and allergic rhinitis. INTERIM HISTORY: Restaging CT scans of the chest, abdomen, and pelvis on 09/17/2020 showed changes of partial left upper lobectomy. There was atelectasis noted in the left lower lobe and at the lingula. The nodule at the left apex was noted to have increased in size, measuring 9 mm. Numerous additional scattered pulmonary nodules appeared stable. There was a slight increase in the size and number of mediastinal and hilar lymph nodes with a right hilar lymph node measuring 10 mm. There was no change in the appearance of the liver. There was evidence of umbilical hernia containing nonobstructed small bowel loop. With those findings he continued expectant management. His restaging CT scans on 12/24/2020 showed slight increase in the lobulated left upper lobe pulmonary nodule. Numerous scattered subcentimeter pulmonary nodules were not significantly changed compared to the September 2020 study. There was no significant change in indeterminate mediastinal and hilar lymph nodes. There was no evidence for any other metastatic disease. Repeat PET/CT on 02/12/2021 showed FDG avid anterior left upper lobe pulmonary nodule measuring 1 cm, SUV 4.0, consistent with progression of malignancy. The previously noted lingular nodule was no longer present. Previously noted reactive mediastinal adenopathy also appeared to have resolved. Tiny right lung nodules were unchanged and remained FDG negative. With those findings, he was referred to Dr. Raza for SBRT to the lung lesion. He completed treatment on 03/10/2021 to a total dose of 5400 cGy administered in 6 fractions. He is seen for a follow-up visit. He has also been seeing Dr. Martinez for treatment of multiple skin lesions. He has been feeling good generally. He has good energy and activity tolerance but ECOG score is 0. His appetite is good. He has no fever or night sweats. He has not had sore mouth or throat, and he has not been having cough. He does not complain of shortness of breath or chest pain. He has no GI or complaints. He currently has no significant joint or bone pain. He does not complain of headache or dizziness, and he has no focal neurologic symptoms. Medications: amLODIPine Besylate 1 (5 mg) Tablet Oral daily, Aspirin 1 (81 mg) Tablet, enteric coated Oral daily, Cetirizine HCl 1 (10 mg) Tablet Oral daily, Famotidine 2 Tablet (of 20 mg) Oral daily, Metoprolol Tartrate 1 (50 mg) Tablet Oral b.i.d., Multivitamin Adult 1 Tablet Oral daily, Probiotic 2 (3 mg) Capsule Oral daily, Vitamin C 1 (1000 mg) Tablet Oral daily Allergies: No Known Allergies. Vital Signs: Performed on Apr 28, 2021 10:23 Height - 68.00 in Weight - 221.2 lbs (HIGH) BSA - 2.13 sq.m BMI - 33.63 (HIGH) Temperature - 97.6 F (LOW) Pulse - 71 /min Respiration - 18 /min BP - 142/83 mm(hg) (HIGH) O2 Sat - 99 % Pain - 0 Fatigue - 0 Physical Examination: Constitutional - He looks good generally, Eyes - Sclerae nonicteric. Conjunctivae clear, ENMT - No lesions noted in the oral cavity, Hematologic/Lymphatic - No cervical, clavicular, or axillary adenopathy, Respiratory - Lungs are clear with good air movement bilaterally, Cardiovascular - Heart rhythm is regular. There is no murmur, gallop, or rub noted, Abdomen - Soft. Liver and spleen are not enlarged. There is no abdominal mass or ascites noted and there is no inguinal adenopathy, Extremities - No edema, Integumentary - He has had multiple skin lesions treated in the facial area, Neurologic - No focal neurologic deficits noted. Problem List: 1. Metastatic rectal cancer, diagnosed in September 2008. 2. Hypertension. 3. GERD. 4. Allergic rhinitis. 5. He has had a skin eruption thought to be consistent with contact dermatitis. Problems Addressed with this Encounter and Plan: Patient with metastatic rectal cancer, MSI proficient, diagnosed in September 2008. He had a very good response to initial chemotherapy with FOLFOX/Avastin. He then underwent laparoscopic low anterior resection with left hepatic lobectomy in February 2009. Pathology showed moderately differentiated adenocarcinoma measuring 3 x 2.5 x 0.6 cm with invasion into the subserosa. There was no involvement in 29 lymph nodes. Final staging was ypT3, ypN0, ypM1a. He received additional postoperative chemotherapy as well as liver directed therapy, including microwave ablation, wedge resection, and several chemoembolization procedures. In April 2011 he began second line chemotherapy with FOLFIRI/Avastin due to disease progression in the liver. He had a good response. His treatment was changed to irinotecan/Xeloda in combination with Avastin due to side effects. He had tolerated it well initially, though he continued to have symptoms of hand/foot syndrome and diarrhea even at a reduced dosage of the Xeloda. The Xeloda was discontinued, and as of September 2013 his treatment was limited to just irinotecan and Avastin. Beginning in January 2017 the irinotecan was stopped and he continued with Avastin monotherapy. It was put on hold in December 2017 due to a decline in renal function. His surveillance CT scans on 04/16/2020 showed a new pulmonary nodule in the lingula. This was found to be FDG avid by PET. His repeat chest CT on 06/30/2000 showed further increase in the size of the lingular nodule. As there were no other areas of obvious disease progression, on 07/19/2020 he proceeded with left thoracoscopy and inferior segmentectomy of the lingula of the left upper lobe. Pathology showed moderately differentiated adenocarcinoma consistent with metastatic rectal cancer. The tumor measured 2 cm in maximum dimension. The closest margin was 0.3 cm. He had a good recovery from his surgery. His restaging CT scans on 12/24/2020 showed slight increase in the lobulated left upper lobe pulmonary nodule. Numerous scattered subcentimeter pulmonary nodules were not significantly changed compared to the September 2020 study. There was no significant change in indeterminate mediastinal and hilar lymph nodes. There was no evidence for any other metastatic disease. Repeat PET/CT on 02/12/2021 showed FDG avid anterior left upper lobe pulmonary nodule measuring 1 cm, SUV 4.0, consistent with progression of malignancy. The previously noted lingular nodule was no longer present. Previously noted reactive mediastinal adenopathy also appeared to have resolved. Tiny right lung nodules were unchanged and remained FDG negative. With those findings, he was referred to Dr. Raza for SBRT to the lung lesion. He completed treatment on 03/10/2021 to a total dose of 5400 cGy administered in 6 fractions. In the absence of any other evidence of disease progression, he will continue expectant management. I will confer with Dr. Raza regarding the scheduling his follow-up CT scans. He will be due to have laboratory studies repeated with his port flush next month. Signed By: Mario Lyman M.D. <<Signature on File>>
== END 2021-05-10 23:59 | disposition home or self-care (01) ==
LOC: ONCMED 06:38
PROVIDERS: Visit Provider Internal Medicine Medical Oncology
DX: Z08 Encounter for follow-up examination after completed treatment for malignant neoplasm (principal); Z85.048 Personal history of other malignant neoplasm of rectum, rectosigmoid junction, and anus; I10 Essential (primary) hypertension; K21.9 Gastro-esophageal reflux disease without esophagitis; J30.9 Allergic rhinitis, unspecified; L25.9 Unspecified contact dermatitis, unspecified cause; Z79.899 Other long term (current) drug therapy; Z92.21 Personal history of antineoplastic chemotherapy; Z92.3 Personal history of irradiation; Z23 Encounter for immunization
CPT/HCPCS: 90471; 90686; 96523; 99214

== ENCOUNTER 2021-05-13 08:21 | Outpatient (CLI) | payer MEDICARE, OTHER, SELFPAY ==
--- NOTE | 2021-05-13 | CT_ITS ---
WS: [id number] CT scan of the chest with IV contrast, additional two-dimensional coronal and sagittal reconstruction was performed. 05/13/2021 Clinical Data: CANCER RESTAGING Comparison: CT chest, 12/24/2020 DLP: 1044.[address] scans at [facility] use at least one of these dose optimization techniques: automated e xposure control; mA and/or kV adjustment per patient size (includes targeted exams where dose is matc hed to clinical indication); or iterative reconstruction. Findings: The left upper lobe nodule is obscured by overlying atelectasis. The atelectasis measures 3.5 x 8.2 c m. No other nodules or areas of atelectasis are seen. The heart size is normal with no pericardial ef fusion. No pneumothorax is seen. The pulmonary arterial system and thoracic aorta demonstrate no abno rmalities or dilatations. Trachea bifurcates normally into the bronchi. There is no axillary or signi ficant mediastinal adenopathy. The upper abdomen demonstrates the left lobe hepatectomy. The remainder of the abdomen is unchanged f rom before. There is degenerative change of the thoracic vertebral bodies but no metastatic lesions a re seen. CT/CT chest w con* [id number] Impression: 1. Left upper lobe nodule obscured by overlying atelectasis which could represe nt inflammatory change. 2. No change in appearance of the upper abdomen.
[2021-05-13 09:25] LABS: Blood Urea Nitrogen 12 mg/dL (8-23)
== END 2021-05-13 08:22 | disposition home or self-care (01) ==
PROVIDERS: Visit Provider Radiology Radiation Oncology
DX: C78.02 Secondary malignant neoplasm of left lung (principal)
CPT/HCPCS: 71260; 82565; 84520; Q9967

== ENCOUNTER 2021-05-30 06:23 | Outpatient (RCR) | payer MEDICARE, OTHER, SELFPAY ==
--- NOTE | 2021-05-20 10:57 | ONCRAD EPV_ITS ---
Radiation Oncology Follow-Up Note Patient Name: Elio Squires Date of : 1955 Date of Service: 05/20/2021 Attending Physician: David Raza M.D. Elio Hackett???Josué returned to my office this morning for a routinely scheduled follow-up appointment. He completed stereotactic ablative body radiotherapy in February for the management of a left upper lobe pulmonary nodule. He was initially was diagnosed with a stage KAITLIN ([id number]) adenocarcinoma of the rectum with normal expression of DNA mismatch repair proteins and September 2008. The M1a designation was on account of liver metastases A thoracic CT scan ordered on December 24, 2020 identified an increase in the left upper lobe pulmonary nodule. A PET CT obtained on February 12, 2021 revealed a 1 cm left anterior upper lobe pulmonary nodule with a maximum SUV of 4 consistent with malignancy. No other evidence of metastatic disease was noted. SABR was delivered between the dates of March 03, 2021 through March 10, 2021. A prescribed dose of 54 Gy was delivered in three fractions encompassing [address] of the thorax ordered on May 13, 2021 described atelectasis of the left upper- lobe obscuring the previous nodule. On review of systems, he reported increased dyspnea upon exertion. On physical examination, he weighed 220 lbs. The temperature was 97.8 ???F and his blood pressure was 146/79 mmHg. The pulse was 66 bpm and his respiratory rate was 18 breaths per minute. The oxygen saturation while breathing ambient air was 98 %. Bronchovesicular breath sounds were auscultated. In summary, Mr. Hackett???Josué returned for a routine post-SABR follow-up. He will continue follow-up according to NCCN Guidelines. Signed by: Dr. David Raza 05/20/2021 10:55:45 AM
[2021-05-30 15:14] LABS: Basophils # 0.1 10^3/uL (0.0-0.1); Basophils % 1.3 %; Eosinophils % 14.4 %; Hematocrit 41.2 % (42.0-52.0); Hemoglobin 14.4 g/dL (11.7-16.6); Lymphocytes # 1.7 10^3/uL (0.8-4.8); Lymphocytes % 24.2 %; Mean Corpuscular Hemoglobin 32.5 pg (28.0-34.0); Mean Platelet Volume 11.5 fL (7.4-10.4); Monocytes # 0.5 10^3/uL (0.2-0.9); Monocytes % 6.7 %; Neutrophils # 3.73 10^3/uL (1.8-7.7); Neutrophils % 53.1 %; Nucleated Red Blood Cells % 0 %; Platelet Count 182 10^3/cmm (130-400); Red Blood Count 4.43 10^6/uL (4.1-5.3); Red Cell Distribution Width 11.8 % (12.1-15.1)
[2021-05-30 15:39] LABS: Carcinoembryonic Antigen 4.3 ng/mL (0.0-4.7)
[2021-05-30 15:50] LABS: Alanine Aminotransferase 21 U/L (0-41); Albumin Level 3.9 g/dL (3.5-5.2); Alkaline Phosphatase 106 IU/L (40-130); Aspartate Amino Transferase 20 U/L (0-40); Blood Urea Nitrogen 15 mg/dL (8-23); Calcium 8.4 mg/dL (8.5-10.5); Carbon Dioxide 21 mmol/L (22-29); Chloride 102 mmol/L (98-107); Globulin 2.7 g/dL (1.3-4.6); Glomerular Filtration Rate 74.5 mL/min (90-130); Glucose 131 mg/dL (65-115); Osmolality Calculated 289 mOsm/kg (285-295); Sodium 138 mmol/L (136-145); Total Bilirubin 0.5 mg/dL (0.15-1.2); Total Protein 6.6 g/dL (6.6-8.7)
[2021-05-30 15:53] LABS: Anion Gap 18.6 (5-19); Potassium 3.6 mmol/L (3.5-5.1)
== END 2021-06-10 23:59 | disposition home or self-care (01) ==
LOC: ONCMED 06:23
PROVIDERS: Visit Provider Internal Medicine Medical Oncology
DX: C78.02 Secondary malignant neoplasm of left lung (principal); R06.00 Dyspnea, unspecified; Z85.048 Personal history of other malignant neoplasm of rectum, rectosigmoid junction, and anus; Z85.05 Personal history of malignant neoplasm of liver; Z92.3 Personal history of irradiation
CPT/HCPCS: 36591; 80053; 82378; 85025; 99215

== ENCOUNTER 2021-07-11 10:26 | Outpatient (CLI) | payer MEDICARE, OTHER, SELFPAY | END 2021-07-11 10:27 | disposition home or self-care (01) | LOC: ONCMED 10:32 | PROVIDERS: Visit Provider Internal Medicine Medical Oncology | DX: Z45.2 Encounter for adjustment and management of vascular access device (principal) | CPT/HCPCS: 96523 ==

== ENCOUNTER 2021-08-08 12:49 | Outpatient (CLI) | payer MEDICARE, OTHER, SELFPAY | END 2021-08-08 12:50 | disposition home or self-care (01) | LOC: ONCMED 12:55 | PROVIDERS: Visit Provider Nurse Practitioner | DX: Z45.2 Encounter for adjustment and management of vascular access device (principal) | CPT/HCPCS: 96523 ==

== ENCOUNTER 2021-08-29 13:44 | Outpatient (CLI) | payer MEDICARE, OTHER, SELFPAY ==
--- NOTE | 2021-08-29 14:08 | CT_ITS ---
WS: [id number] CT CHEST TECHNIQUE: Contrast enhanced CT of the chest with coronal and sagittal reformatted images. CLINICAL INFORMATION: RESTAGING EVALUATION/HX OF CANCER/LUNG CANCER COMPARISON: CT chest 05/13/2021 and 02/12/2021 PET/CT DLP: 828.[address] scans at [facility] use at least one of these dose optimization techniques: automated e xposure control; mA and/or kV adjustment per patient size (includes targeted exams where dose is matc hed to clinical indication); or iterative reconstruction. FINDINGS: Postoperative or post therapeutic changes in the LEFT upper lobe in the region of the previously desc ribed 1 cm pulmonary nodule. This is new compared to PET/CT February 12, 2021 and similar to Decembe 2020. This is slightly improved today measuring 5.9 x 1.9 cm with associated air bronchograms. No evidence of progression. A few tiny subcentimeter pulmonary nodules in the RIGHT and LEFT lungs. Largest noncalcified nodules measure 4 to 5 mm and are stable. Calcified granulomas LEFT lower lobe. Moderate chronic emphysematous changes. Normal caliber thoracic aorta. Proximal main pulmonary arteries are normal. No mediastinal or hilar l ymphadenopathy. No axillary lymphadenopathy. Prior postoperative changes resection of the LEFT hepatic lobe. Normal LEFT adrenal gland. Normal GE junction. Hypertrophic changes thoracic spine. Mild thoracic kyphosis. CT/CT chest w con* [id number] IMPRESSION: 1. Postoperative or post therapeutic fibrotic changes in the LEFT upper lobe i n the area of the previously described 1 cm pulmonary nodule. This has improved since May 13, 2021 but similar in appearance. Today this measures 5.9 x 1 .9 cm with air bronchograms. 2. No mediastinal or hilar lymphadenopathy. 3. Several bilateral noncalcified pulmonary nodules unchanged in appearance si nce the prior examination. Largest nodules measure approximately 4 to 5 mm. 4. Prior postoperative changes resection LEFT hepatic lobe.
[2021-08-29] MEDS: iohexol 300 mg/mL 100 mL Btl IV (15:27)
[2021-08-29 15:28] LABS: Blood Urea Nitrogen 17 mg/dL (8-23); Glomerular Filtration Rate 60.2 mL/min (90-130)
== END 2021-08-29 13:45 | disposition home or self-care (01) ==
LOC: RAD 13:48
PROVIDERS: Visit Provider Radiology Radiation Oncology
DX: C78.02 Secondary malignant neoplasm of left lung (principal); R91.8 Other nonspecific abnormal finding of lung field
CPT/HCPCS: 71260; 82565; 84520

== ENCOUNTER 2021-09-05 07:53 | Outpatient (CLI) | payer MEDICARE, OTHER, SELFPAY ==
[2021-09-05 08:37] LABS: Basophils # 0.1 10^3/uL (0.0-0.1); Basophils % 1.3 %; Eosinophils # 0.7 10^3/uL (0.0-0.8); Eosinophils % 9.4 %; Hematocrit 43.9 % (42.0-52.0); Lymphocytes # 1.3 10^3/uL (0.8-4.8); Lymphocytes % 16.8 %; Mean Corpuscular HGB Conc 34.2 g/dL (30.0-36.0); Mean Corpuscular Hemoglobin 32.3 pg (28.0-34.0); Mean Corpuscular Volume 94.4 fl (80-94); Mean Platelet Volume 11.1 fL (7.4-10.4); Monocytes # 0.7 10^3/uL (0.2-0.9); Monocytes % 9.2 %; Neutrophils # 4.81 10^3/uL (1.8-7.7); Neutrophils % 62.9 %; Nucleated Red Blood Cells % 0 %; Platelet Count 162 10^3/cmm (130-400); Red Blood Count 4.65 10^6/uL (4.1-5.3); Red Cell Distribution Width 12.4 % (12.1-15.1); White Blood Count 7.6 10^3/uL (4.0-10.0)
[2021-09-05 10:44] LABS: Alanine Aminotransferase 31 U/L (0-41); Albumin Level 3.8 g/dL (3.5-5.2); Alkaline Phosphatase 110 IU/L (40-130); Blood Urea Nitrogen 18 mg/dL (8-23); Calcium 8.8 mg/dL (8.5-10.5); Carbon Dioxide 19 mmol/L (22-29); Chloride 102 mmol/L (98-107); Globulin 2.5 g/dL (1.3-4.6); Glomerular Filtration Rate 66.6 mL/min (90-130); Glucose 143 mg/dL (65-115); Osmolality Calculated 286 mOsm/kg (285-295); Sodium 136 mmol/L (136-145); Total Bilirubin 0.3 mg/dL (0.15-1.2); Total Protein 6.3 g/dL (6.6-8.7)
[2021-09-05 10:46] LABS: Anion Gap 19.2 (5-19); Potassium 4.2 mmol/L (3.5-5.1)
[2021-09-05 10:47] LABS: Aspartate Amino Transferase 24 U/L (0-40)
--- NOTE | 2021-09-05 19:02 | ONC FU_ITS ---
Dr. Lyman Patient Follow-Up Note Patient: Elio Squires Unit #: [id number]: 1955 Dicatated By: Mario Lyman M.D.Date of Visit:Sep 05, 2021 Onc Med Follow-up/Prog Note Chief Complaint: Rectal cancer. History of Present Illness: This is a 66 year-old man with metastatic rectal cancer, stage KAITLIN (ypT3, ypN0, ypM1a). Microsatellite instability studies were performed and his tumor showed normal expression of DNA mismatch repair proteins. He had multiple liver metastases at initial presentation in September of 2008. He had a very good response to initial chemotherapy with FOLFOX/Avastin. In February of 2009 he underwent laparoscopic low anterior resection with left hepatic lobectomy. Pathology showed invasive moderately differentiated adenocarcinoma of the rectum which was invading through the muscularis propria into the subserosa more than 5 mm beyond the border of the muscularis propria. It measured 3 x 2.5 x 0.6 cm. There was no involvement in 29 lymph nodes. The left hepatic lobectomy showed metastatic colonic adenocarcinoma. He did receive additional chemotherapy postoperatively, and he also underwent additional treatment to the liver, which included microwave ablation and wedge resection. He subsequently underwent several chemoembolization procedures. He started second line chemotherapy with FOLFIRI/Avastin in April of 2011 after he was again showing evidence of disease progression in the liver. He had a good response by CEA level and by followup CT scan. We had subsequently changed his treatment to an irinotecan/Xeloda regimen, still in combination with Avastin. He did have a dose reduction in the Xeloda with the second cycle due to diarrhea and hand/foot syndrome. He had then tolerated treatment well with the irinotecan dosed every 4 weeks and the Xeloda administered on a 7 days on/7 days off schedule. However, he eventually did have more side effects with the Xeloda, even with further dose reductions. As of September 2013 the Xeloda was omitted, and he then continued treatment with irinotecan every 4 weeks and Avastin on a 2-week dosing schedule. His restaging CT chest, abdomen, and pelvis on 11/03/2016 reported new subcentimeter noncalcified pulmonary nodules in the upper lobes bilaterally which were new from a prior study in 2008. The abdomen showed a right lateral hepatic sub-capsular 14 mm low-attenuation lesion of uncertain significance. Metastasis could not be excluded. There was no other evidence of disease progression, and he continued the same treatment. He began cycle 55 of irinotecan/Avastin on 01/02/2017. At that time we discussed options for his further treatment. Given his long period of stability, we opted to stop the chemotherapy and just continue treatment with single agent Avastin. He began the first cycle of single agent Avastin on 01/16/2017. He then continued the Avastin on a 3-week dosing schedule. Beginning in August 2017 there was an increase in his creatinine to 1.3 mg/dL, and it continued to gradually increase thereafter, up to a maximum 1.6 mg/dL on 12/10/2017, at which point his Avastin was put on hold. His blood pressure during that time had been well controlled. As of 03/27/2018 the creatinine was back down to 1.3 mg/dL. His CEA was stable at 2.5 ng/mL. However, at that point there was a significant increase in his liver enzymes. His CT abdomen/pelvis on 04/03/2018 showed no evidence of recurrent or metastatic disease, and he continued on observation/expectant management. During subsequent follow-up there was a slight further increase in the CEA level, but his clinical status remained stable and the CEA level had subsequently stabilized. His restaging CT scans of the chest, abdomen, and pelvis on 04/16/2020 showed a right middle lobe nodule measuring 0.6 cm as well as other small calcified and noncalcified nodules which all appeared unchanged. A new nodule was noted in the lingula of the left lobe adjacent to the cardiac border measuring 1.7 cm. There was no change in the appearance of the liver, and there was otherwise no evidence of disease progression. Restaging PET/CT on 05/08/2020 showed an FDG avid lingular nodule measuring 1.6 x 1.8 cm, SUV 6.9, indicating high probability of malignancy. Subcentimeter right-sided pulmonary nodules were FDG negative. An anterior left upper lobe nodule measuring 7 mm was minimally FDG positive, felt to be concerning for malignancy. Mediastinal lymph nodes demonstrated mild FDG activity in bilateral hilar, right paratracheal, subaortic, and subcarinal territories. These were felt to be most likely reactive. A repeat chest CT on 08/01/2020 showed further increase in the lingular nodule measuring 1.4 x 2.4 cm. The left upper lobe pulmonary nodule was felt to be slightly larger, measuring 7 mm compared to 5 mm. The remainder of the noncalcified pulmonary nodules appeared unchanged. There was no mediastinal or hilar lymphadenopathy noted. With those findings, we opted to proceed with surgical resection. On 07/19/2020 he underwent left thoracoscopy with inferior segmentectomy of the lingula of the left upper lobe. Pathology showed moderately differentiated multifocal adenocarcinoma with the largest focus measuring 2 cm. There was evidence for lymphovascular invasion. The margins were uninvolved, with the closest margin measured at 0.3 cm. The tumor was noted to be strongly positive for CDX2, CEA, CK20, MCK, and CK 8/18, consistent with metastatic rectal adenocarcinoma. The PD-L1 expression to IHC 22C3 was less than 1%. His medical history is otherwise significant for hypertension, which had developed during treatment for the rectal cancer. It had been managed adequately with medication. Within the past 2 months he developed a significant skin eruption, felt to be consistent with irritant contact dermatitis. His other medical illnesses have been limited to GERD and allergic rhinitis. INTERIM HISTORY: Restaging CT scans of the chest, abdomen, and pelvis on 09/17/2020 showed changes of partial left upper lobectomy. There was atelectasis noted in the left lower lobe and at the lingula. The nodule at the left apex was noted to have increased in size, measuring 9 mm. Numerous additional scattered pulmonary nodules appeared stable. There was a slight increase in the size and number of mediastinal and hilar lymph nodes with a right hilar lymph node measuring 10 mm. There was no change in the appearance of the liver. There was evidence of umbilical hernia containing nonobstructed small bowel loop. With those findings he continued expectant management. His restaging CT scans on 12/24/2020 showed slight increase in the lobulated left upper lobe pulmonary nodule. Numerous scattered subcentimeter pulmonary nodules were not significantly changed compared to the September 2020 study. There was no significant change in indeterminate mediastinal and hilar lymph nodes. There was no evidence for any other metastatic disease. Repeat PET/CT on 02/12/2021 showed FDG avid anterior left upper lobe pulmonary nodule measuring 1 cm, SUV 4.0, consistent with progression of malignancy. The previously noted lingular nodule was no longer present. Previously noted reactive mediastinal adenopathy also appeared to have resolved. Tiny right lung nodules were unchanged and remained FDG negative. With those findings, he was referred to Dr. Raza for SBRT to the lung lesion. He completed treatment on 03/10/2021 to a total dose of 5400 cGy administered in 6 fractions. His repeat chest CT on 08/29/2021 showed post therapeutic fibrotic changes in the left upper lobe in the area of the previously described 1 cm pulmonary nodule. The appearance was similar compared to the May 2021 study, though with some improvement. Several bilateral noncalcified pulmonary nodules appeared unchanged, the largest measuring the range of 4 to 5 mm. There was no mediastinal or hilar lymphadenopathy. Postoperative changes of left hepatic lobe resection appeared stable. He is seen for a follow-up visit. He has been feeling pretty good generally. He has had little twinges of sharp pain in his chest occasionally. He has no other significant complaints. He has pretty good energy and he has had normal activity. ECOG score is 0. Appetite also is good. He has no fever or night sweats. He has not had sore mouth or throat. He has not been having cough or shortness of breath. He occasionally has a little bit of acid reflux. He has no other GI or complaints. Recently he has had a little aching in his left elbow and he occasionally has back pain. He does not complain of headache or dizziness, and he has no focal neurologic symptoms. Medications: amLODIPine Besylate 1 (5 mg) Tablet Oral daily, Aspirin 1 (81 mg) Tablet, enteric coated Oral daily, Cetirizine HCl 1 (10 mg) Tablet Oral daily, Famotidine 2 Tablet (of 20 mg) Oral daily, Metoprolol Tartrate 1 (50 mg) Tablet Oral b.i.d., Multivitamin Adult 1 Tablet Oral daily, Probiotic 2 (3 mg) Capsule Oral daily, Vitamin C 1 (1000 mg) Tablet Oral daily Allergies: No Known Allergies. Vital Signs: Performed on Sep 05, 2021 10:48 Height - 68.00 in BP - 168/91 mm(hg) (HIGH) Performed on Sep 05, 2021 10:48 Height - 68.00 in Weight - 219.6 lbs (LOW) BSA - 2.13 sq.m BMI - 33.39 (HIGH) Temperature - 97.6 F (LOW) Pulse - 72 /min Respiration - 16 /min BP - 169/90 mm(hg) (HIGH) O2 Sat - 96 % Pain - 0 Fatigue - 2 Physical Examination: Constitutional - He looks good generally, Eyes - Sclerae nonicteric. Conjunctivae clear, ENMT - No lesions noted in the oral cavity, Hematologic/Lymphatic - No cervical, clavicular, or axillary adenopathy, Respiratory - Lungs are clear with good air movement bilaterally, Cardiovascular - Heart rhythm is regular. There is no murmur, gallop, or rub noted, Abdomen - Soft. Liver and spleen are not enlarged. There is no abdominal mass or ascites noted and there is no inguinal adenopathy, Extremities - No edema, Neurologic - No focal neurologic deficits noted. Lab/Imaging: Test performed on Sep 05, 2021 08:15 Sodium 136 mmol/L Potassium 4.2 mmol/L Chloride 102 mmol/L CO2 19 mmol/L Anion Gap 19.2 BUN 18 mg/dL Creatinine 1.1 mg/dL Cr Clearance (Est) 90.56 mL/min eGFR 66.6 mL/min Glucose 143 mg/dL Osmolality - Calculated 286 mOsm/kg Calcium 8.8 mg/dL Protein, Total 6.3 g/dL Albumin 3.8 g/dL Globulin 2.5 g/dL Bilirubin, Total 0.3 mg/dL ALT (SGPT) 31 U/L AST (SGOT) 24 U/L Alkaline Phosphatase 110 IU/L WBC 7.6 10 3/uL RBC 4.65 10 6/uL HGB 15.0 g/dL HCT 43.9 % MCV 94.4 fl MCH 32.3 pg MCHC 34.2 g/dL RDW 12.4 % Platelet Count 162 10 3/cmm MPV 11.1 fL Neutrophils 4.81 10 3/uL Lymphocytes 1.3 10 3/uL Monocytes 0.7 10 3/uL Eosinophils 0.7 10 3/uL Basophils 0.1 10 3/uL Neutrophil % 62.9 % Lymphocyte % 16.8 % Monocyte % 9.2 % Eosinophil % 9.4 % Basophils % 1.3 % NRBC % 0 % Test performed on May 30, 2021 14:55 CEA 4.3 ng/mL Problem List: 1. Metastatic rectal cancer, diagnosed in September 2008. 2. Hypertension. 3. GERD. 4. Allergic rhinitis. 5. He has had a skin eruption thought to be consistent with contact dermatitis. Problems Addressed with this Encounter and Plan: Patient with metastatic rectal cancer, MSI proficient, diagnosed in September 2008. He had a very good response to initial chemotherapy with FOLFOX/Avastin. He then underwent laparoscopic low anterior resection with left hepatic lobectomy in February 2009. Pathology showed moderately differentiated adenocarcinoma measuring 3 x 2.5 x 0.6 cm with invasion into the subserosa. There was no involvement in 29 lymph nodes. Final staging was ypT3, ypN0, ypM1a. He received additional postoperative chemotherapy as well as liver directed therapy, including microwave ablation, wedge resection, and several chemoembolization procedures. In April 2011 he began second line chemotherapy with FOLFIRI/Avastin due to disease progression in the liver. He had a good response. His treatment was changed to irinotecan/Xeloda in combination with Avastin due to side effects. He had tolerated it well initially, though he continued to have symptoms of hand/foot syndrome and diarrhea even at a reduced dosage of the Xeloda. The Xeloda was discontinued, and as of September 2013 his treatment was limited to just irinotecan and Avastin. Beginning in January 2017 the irinotecan was stopped and he continued with Avastin monotherapy. It was put on hold in December 2017 due to a decline in renal function. His surveillance CT scans on 04/16/2020 showed a new pulmonary nodule in the lingula. This was found to be FDG avid by PET. His repeat chest CT on 06/30/2000 showed further increase in the size of the lingular nodule. As there were no other areas of obvious disease progression, on 07/19/2020 he proceeded with left thoracoscopy and inferior segmentectomy of the lingula of the left upper lobe. Pathology showed moderately differentiated adenocarcinoma consistent with metastatic rectal cancer. The tumor measured 2 cm in maximum dimension. The closest margin was 0.3 cm. He had a good recovery from his surgery. His restaging CT scans on 12/24/2020 showed slight increase in the lobulated left upper lobe pulmonary nodule. Numerous scattered subcentimeter pulmonary nodules were not significantly changed compared to the September 2020 study. There was no significant change in indeterminate mediastinal and hilar lymph nodes. There was no evidence for any other metastatic disease. Repeat PET/CT on 02/12/2021 showed FDG avid anterior left upper lobe pulmonary nodule measuring 1 cm, SUV 4.0, consistent with progression of malignancy. The previously noted lingular nodule was no longer present. Previously noted reactive mediastinal adenopathy also appeared to have resolved. Tiny right lung nodules were unchanged and remained FDG negative. With those findings, he was referred to Dr. Raza for SBRT to the lung lesion. He completed treatment on 03/10/2021 to a total dose of 5400 cGy administered in 6 fractions. During follow-up there has been evidence of fibrosis in the area of the SBRT, but his clinical status has remained stable, and thus far there has been no evidence for any other disease progression. As such, he continues expectant management. He will be scheduled for a follow-up visit with surveillance CT scans in 3 months. Signed By: Mario Lyman M.D. <<Signature on File>>
[2021-09-06 11:44] LABS: Carcinoembryonic Antigen 3.8 ng/mL (0.0-4.7)
== END 2021-09-05 07:54 | disposition home or self-care (01) ==
PROVIDERS: Visit Provider Internal Medicine Medical Oncology
DX: C20 Malignant neoplasm of rectum (principal); C78.7 Secondary malignant neoplasm of liver and intrahepatic bile duct; C78.02 Secondary malignant neoplasm of left lung; C77.8 Secondary and unspecified malignant neoplasm of lymph nodes of multiple regions; C78.01 Secondary malignant neoplasm of right lung; I10 Essential (primary) hypertension; K21.9 Gastro-esophageal reflux disease without esophagitis; J30.9 Allergic rhinitis, unspecified; L30.9 Dermatitis, unspecified; Z92.3 Personal history of irradiation; Z85.038 Personal history of other malignant neoplasm of large intestine
CPT/HCPCS: 36591; 80053; 82378; 85025; 99214

== ENCOUNTER 2021-10-25 15:23 | Oncology outpatient (recurring) (ONCR) | payer MEDICARE, OTHER, SELFPAY | END 2021-11-08 23:59 | disposition home or self-care (01) | LOC: ONCMED 15:23 | PROVIDERS: Visit Provider Internal Medicine Medical Oncology | DX: Z45.2 Encounter for adjustment and management of vascular access device (principal) | CPT/HCPCS: 96523 ==

== ENCOUNTER 2021-12-29 11:00 | Oncology outpatient (recurring) (ONCR) | payer MEDICARE, OTHER, SELFPAY ==
--- NOTE | 2021-12-27 09:00 | CT_ITS ---
WS: [id number] CT CHEST, ABDOMEN AND PELVIS WITH CONTRAST. HISTORY: RECTAL CA TECHNIQUE: Contiguous 5 mm axial imaging performed through the chest, abdomen and pelvis with IV cont rast, oral contrast has been provided. Coronal and sagittal reformats chest. Coronal and sagittal ref ormats through the abdomen and pelvis. All CT scans at [facility] use at least one of these d ose optimization techniques: automated exposure control; mA and/or kV adjustment per patient size (in cludes targeted exams where dose is matched to clinical indication); or iterative reconstruction. CONTRAST: Omnipaque 350; 95 mL IV. DLP: 1880.88 mGy.cm COMPARISON: 08/29/2021 and 12/24/[address]: Partial LEFT upper lobectomy. Postsurgical changes and scarring with bronchial thickening a t the LEFT apex is unchanged measuring 5.8 x 1.7 cm. Patient also has a additional numerous noncalcif ied, subcentimeter pulmonary nodules which are unchanged. Some of these nodules are slightly better v isualized today and some are not visualized but this is probably due to slice selection and their sma ll size. There are additional granulomata. Small hilar lymph nodes with the largest measuring 9 mm. V nano similar appearance to the prior study. No new or increasing lymph node size. Mild atherosclerosis aorta with no aneurysm. Normal size pulmonary artery. Abdomen CT: LEFT hepatectomy. The visualized remaining liver is of low attenuation from hepatic steat osis. Very tiny low-attenuation lesion in the RIGHT lobe of the liver is stable. This may be postoper ative. No evidence for recurrence along the suture line. Normal pancreas. Normal spleen. Gallbladder has been removed. Normal adrenal glands. No renal mass or obstruction. Atherosclerosis aorta with no aneurysm. Mild atherosclerosis involving the proximal celiac axis and SMA but no occlusion. No ascites or adenopathy. No GI tract obstruction. Prior appendectomy. Distal colonic diverticulosis without acute diverticulitis. Pelvic CT: Well-distended urinary bladder. No masses. No adenopathy. Facet joint disease throughout the lumbar spine. No osteoblastic or osteolytic lesions. CT/CT chest abd pel w con* IMPRESSION: 1. Chronic fibrotic and post surgical changes at the LEFT apex. No progression or recurrence of neoplasm. 2. Subcentimeter mediastinal and hilar lymph nodes with no progression. 3. Numerous bilateral multilobar, subcentimeter pulmonary nodules. No increase in size or number. 4. Status post partial hepatectomy. No evidence for recurrence within the live r. 5. No adrenal mass.
[2021-12-27 10:51] LABS: Blood Urea Nitrogen 15 mg/dL (8-23); Glomerular Filtration Rate 74.3 mL/min (90-130)
[2021-12-27] MEDS: iohexol 350 mg/mL 100 mL Btl IV (10:56)
[2021-12-27] MEDS: iohexol 300 mg/mL 50 mL Btl IV (11:02)
[2021-12-29 11:30] LABS: Basophils # 0.1 10^3/uL (0.0-0.1); Basophils % 1.1 %; Eosinophils # 0.7 10^3/uL (0.0-0.8); Eosinophils % 10.3 %; Hematocrit 41.8 % (42.0-52.0); Hemoglobin 14.7 g/dL (11.7-16.6); Lymphocytes % 27.6 %; Mean Corpuscular HGB Conc 35.2 g/dL (30.0-36.0); Mean Corpuscular Volume 91.1 fl (80-94); Mean Platelet Volume 11.4 fL (7.4-10.4); Monocytes # 0.7 10^3/uL (0.2-0.9); Neutrophils # 3.58 10^3/uL (1.8-7.7); Neutrophils % 50.6 %; Nucleated Red Blood Cells % 0 %; Platelet Count 187 10^3/cmm (130-400); Red Blood Count 4.59 10^6/uL (4.1-5.3); Red Cell Distribution Width 12.1 % (12.1-15.1); White Blood Count 7.1 10^3/uL (4.0-10.0)
[2021-12-29 11:48] LABS: Alanine Aminotransferase 26 U/L (0-41); Alkaline Phosphatase 114 IU/L (40-130); Anion Gap 15.1 (5-19); Aspartate Amino Transferase 21 U/L (0-40); Blood Urea Nitrogen 19 mg/dL (8-23); Carbon Dioxide 24 mmol/L (22-29); Chloride 105 mmol/L (98-107); Globulin 2.6 g/dL (1.3-4.6); Glomerular Filtration Rate 66.6 mL/min (90-130); Glucose 107 mg/dL (65-115); Osmolality Calculated 293 mOsm/kg (285-295); Potassium 4.1 mmol/L (3.5-5.1); Sodium 140 mmol/L (136-145); Total Bilirubin 0.4 mg/dL (0.15-1.2); Total Protein 6.6 g/dL (6.6-8.7)
== END 2022-01-08 23:59 | disposition home or self-care (01) ==
PROVIDERS: Visit Provider Internal Medicine Medical Oncology
DX: Z08 Encounter for follow-up examination after completed treatment for malignant neoplasm (principal); Z85.038 Personal history of other malignant neoplasm of large intestine; Z87.891 Personal history of nicotine dependence; Z92.21 Personal history of antineoplastic chemotherapy; Z92.3 Personal history of irradiation
CPT/HCPCS: 36591; 71260; 74177; 80053; 82565; 84520; 85025; 99214

== ENCOUNTER 2022-01-27 10:38 | Oncology outpatient (recurring) (ONCR) | payer MEDICARE, OTHER, SELFPAY | END 2022-02-08 23:59 | disposition home or self-care (01) | PROVIDERS: Visit Provider Internal Medicine Medical Oncology | DX: Z45.2 Encounter for adjustment and management of vascular access device (principal) | CPT/HCPCS: 96523 ==

== ENCOUNTER 2022-03-01 09:24 | Oncology outpatient (recurring) (ONCR) | payer MEDICARE, OTHER, SELFPAY ==
[2022-03-01 09:37] VITALS: BP 184/92; PULSE 78; RESP 18; TEMP 36.4; O2SAT 98
== END 2022-03-10 23:59 | disposition home or self-care (01) ==
LOC: ONCMED 09:25
PROVIDERS: Visit Provider Internal Medicine Medical Oncology
DX: Z45.2 Encounter for adjustment and management of vascular access device (principal)
CPT/HCPCS: 96523

== ENCOUNTER 2022-04-03 11:02 | Oncology outpatient (recurring) (ONCR) | payer MEDICARE, OTHER, SELFPAY ==
[2022-04-03 11:47] LABS: Basophils # 0.1 10^3/uL (0.0-0.1); Basophils % 1.2 %; Eosinophils # 0.5 10^3/uL (0.0-0.8); Eosinophils % 6.9 %; Hematocrit 41.6 % (42.0-52.0); Hemoglobin 14.5 g/dL (11.7-16.6); Lymphocytes % 29.1 %; Mean Corpuscular HGB Conc 34.9 g/dL (30.0-36.0); Mean Corpuscular Hemoglobin 32.5 pg (28.0-34.0); Mean Corpuscular Volume 93.3 fl (80-94); Mean Platelet Volume 11.3 fL (7.4-10.4); Monocytes # 0.6 10^3/uL (0.2-0.9); Monocytes % 8.5 %; Neutrophils # 3.61 10^3/uL (1.8-7.7); Nucleated Red Blood Cells % 0 %; Platelet Count 179 10^3/cmm (130-400); Red Blood Count 4.46 10^6/uL (4.1-5.3); White Blood Count 6.7 10^3/uL (4.0-10.0)
[2022-04-03 12:21] LABS: Carcinoembryonic Antigen 4.6 ng/mL (0.0-4.7)
[2022-04-03 12:32] LABS: Alanine Aminotransferase 31 U/L (0-41); Albumin Level 3.9 g/dL (3.5-5.2); Alkaline Phosphatase 129 U/L (40-130); Anion Gap 17.7 (5-19); Aspartate Amino Transferase 23 U/L (0-40); Blood Urea Nitrogen 19 mg/dL (8-23); Calcium 8.9 mg/dL (8.5-10.5); Carbon Dioxide 21 mmol/L (22-29); Chloride 104 mmol/L (98-107); Globulin 3.1 g/dL (1.3-4.6); Glomerular Filtration Rate 66.6 mL/min (90-130); Glucose 128 mg/dL (65-115); Osmolality Calculated 292 mOsm/kg (285-295); Potassium 3.7 mmol/L (3.5-5.1); Sodium 139 mmol/L (136-145); Total Bilirubin 0.4 mg/dL (0.15-1.2)
== END 2022-04-10 23:59 | disposition home or self-care (01) ==
PROVIDERS: Nurse Practitioner Family; Visit Provider Internal Medicine Medical Oncology
DX: Z08 Encounter for follow-up examination after completed treatment for malignant neoplasm (principal); Z85.038 Personal history of other malignant neoplasm of large intestine; Z85.118 Personal history of other malignant neoplasm of bronchus and lung; Z92.21 Personal history of antineoplastic chemotherapy; Z92.3 Personal history of irradiation; Z23 Encounter for immunization
CPT/HCPCS: 36591; 80053; 82378; 85025; 90471; 90686; 99213

== ENCOUNTER 2022-04-21 13:03 | Outpatient (CLI) | payer MEDICARE, OTHER, SELFPAY ==
[2022-04-21] MEDS: iohexol 350 mg/mL 500 mL Btl (per mL) IV (14:22)
--- NOTE | 2022-04-21 14:30 | CT_ITS ---
WS: [id number] CT CHEST, ABDOMEN AND PELVIS WITH CONTRAST HISTORY: History colorectal cancer. TECHNIQUE: Contiguous 5 mm axial imaging performed through the chest, abdomen and pelvis IV contrast, oral contrast has now been provided. Coronal and sagittal reformats chest. Coronal and sagittal refo rmats through the abdomen and pelvis. All CT scans at [facility] use at least one of these do se optimization techniques: automated exposure control; mA and/or kV adjustment per patient size (inc ludes targeted exams where dose is matched to clinical indication); or iterative reconstruction. CONTRAST: Omnipaque 350; 95 mL IV. DLP: 1917.08 mGy.cm COMPARISON: 12/27/[address]: Status post partial LEFT upper lobe resection. Linear scarring and postsurgical changes in the LEFT upper lobe are stable with continued decrease in size of the bronchial wall thickening. Ther e are numerous bilateral and multi lobar pulmonary nodules which are noncalcified and subcentimeter. These nodules are not increasing in size and is slightly decreased overall since 08/29/2020. Small med iastinal and hilar lymph nodes. Largest lymph node may be due to adjacent lymph nodes at RIGHT hilum maximum diameter 5.6 mm. No increase in size of the lymphadenopathy. Heart size is normal. No pericar dial or pleural effusions. LEFT subclavian Port-A-Cath. Abdomen CT: Prior LEFT hepatectomy. Visualized remaining liver is of low attenuation from hepatic anderson atosis. Low-attenuation lesion with small adjacent calcification in the RIGHT lobe liver is reidentif ied measuring 12 mm. No new liver lesions. No bile duct dilatation. Prior cholecystectomy. Spleen is normal size. Normal pancreas and adrenal glands. Mild atherosclerosis aorta. Kidneys are normal size. Bilateral low-attenuation cortical based lesions within each kidney are too small to characterize. N o enlarging solid mass. No ascites or adenopathy. Stomach is distended with fluid. No small bowel obstruction. Numerous diver ticula. Umbilical hernia contains a loop of nondilated small bowel. Pelvic CT: Minimally distended urinary bladder. Mild prostate gland enlargement. No ascites or adenop athy. No osteoblastic or osteolytic bone lesions. CT/CT chest abd pel w con* IMPRESSION: 1. Status post partial LEFT upper lobectomy. 2. Postsurgical changes in the LEFT upper lobe are stable and improving slowly . 3. Numerous bilateral pulmonary nodules have not progressed in size. No new no dules. 4. No mediastinal or hilar adenopathy. 5. Status post LEFT hepatectomy. 6. Stable low-attenuation nodule in the RIGHT lobe of the liver. 7. No ascites or lymphadenopathy in the abdomen or pelvis. 8. Distal colonic diverticulosis without acute diverticulitis. No GI tract obs truction.
== END 2022-04-21 13:04 | disposition home or self-care (01) ==
LOC: RAD 13:04
PROVIDERS: PCP Internal Medicine Medical Oncology; Visit Provider Nurse Practitioner Family
DX: Z85.038 Personal history of other malignant neoplasm of large intestine (principal); Z90.2 Acquired absence of lung [part of]; R91.8 Other nonspecific abnormal finding of lung field; Q44.7 Other congenital malformations of liver; K57.90 Diverticulosis of intestine, part unspecified, without perforation or abscess without bleeding
CPT/HCPCS: 71260; 74177

== ENCOUNTER 2022-06-09 09:54 | Oncology outpatient (recurring) (ONCR) | payer MEDICARE, OTHER, SELFPAY | END 2022-06-10 23:59 | disposition home or self-care (01) | LOC: ONCMED 09:54 | PROVIDERS: PCP Internal Medicine Medical Oncology; Visit Provider Internal Medicine Medical Oncology | DX: Z45.2 Encounter for adjustment and management of vascular access device (principal); Z95.828 Presence of other vascular implants and grafts | CPT/HCPCS: 96523 ==

== ENCOUNTER 2022-07-28 09:26 | Outpatient (CLI) | payer MEDICARE, OTHER, SELFPAY ==
--- NOTE | 2022-07-28 11:00 | CT_ITS ---
WS: [id number] CT CHEST, ABDOMEN AND PELVIS WITH CONTRAST. HISTORY: Follow-up colorectal cancer with liver metastases. TECHNIQUE: Contiguous 5 mm axial imaging performed through the chest, abdomen and pelvis with IV cont rast, oral contrast has been provided. Coronal and sagittal reformats chest. Coronal and sagittal ref ormats through the abdomen and pelvis. All CT scans at [facility] use at least one of these d ose optimization techniques: automated exposure control; mA and/or kV adjustment per patient size (in cludes targeted exams where dose is matched to clinical indication); or iterative reconstruction. CONTRAST: Omnipaque 350; 100 mL IV. DLP: 1291.43 mGy.cm COMPARISON: 04/21/2022, 12/27/[address]: Partial LEFT upper lobectomy. Focal area of linear scarring and postoperative change in the LEFT upper lung field. Continued decrease in size over the last several examinations. The adjacent s atellite nodules are stable. Numerous bilateral, subcentimeter pulmonary nodules are reidentified. Th ewa nodules have been present on the last several prior examinations with no increase in size. No new nodule or enlarging pulmonary nodule. Mild atherosclerosis aorta. Normal size pulmonary artery. LEFT subclavian Port-A-Cath is reidentified. There is a very small filling defect in the SVC which was pr esent on the prior studies. No mediastinal or hilar adenopathy. Oral contrast in the esophagus. There is a single soft tissue nodule abutting the LEFT pericardium measuring 12 mm. This nodule was n ot present on 05/13/2021 but slowly increased since that exam. Abdomen CT: LEFT lobe hepatectomy. Focal area of decreased attenuation in the RIGHT lobe of the liver is unchanged in size. Noted on the last prior examinations. Nodule measures 15 mm. There is an addit ional subcapsular hypodensity which is also stable along the inferior RIGHT lobe of the liver. Prior cholecystectomy. Normal spleen. Normal pancreas. No bile duct dilatation. No adrenal mass. Mild ather osclerosis aorta. Portal vein is normally enhancing. Stomach is well distended with oral contrast. No small bowel obstruction. A few scattered diverticula within the distal colon. No acute diverticulitis. Pelvic CT: No free fluid in the pelvis. No osseous destructive lesions. Large degenerative osteophytes throughout the visualized thoracic and lumbar spines. CT/CT chest abdpel w/*[id number] IMPRESSION: 1. Stable postoperative LEFT upper lobe segmentectomy. Postsurgical changes ar e slowly improving. 2. Numerous bilateral pulmonary nodules which demonstrates stability over jayy ral of the last prior examinations. 3. There is a single nodule abutting the LEFT ventricle pericardium now measur ing 12 mm which has slowly increased in size and new since 05/13/2021. Short-ter m follow-up recommended to reevaluate this nodule. 4. Stable partial hepatectomy. No recurrent mass or adenopathy. 5. No ascites or adrenal mass.
[2022-07-28 11:18] LABS: Blood Urea Nitrogen 13 mg/dL (8-23)
[2022-07-28] MEDS: iohexol 350 mg/mL 500 mL Btl (per mL) IV (11:22)
[2022-07-28] MEDS: iohexol 350 mg/mL 500 mL Btl (per mL) PO (11:23)
== END 2022-07-28 09:27 | disposition home or self-care (01) ==
LOC: RAD 09:30
PROVIDERS: PCP Internal Medicine Medical Oncology; Visit Provider Internal Medicine Medical Oncology
DX: C20 Malignant neoplasm of rectum (principal)
CPT/HCPCS: 71260; 74177; 82565; 84520; Q9967

== ENCOUNTER 2022-08-02 09:16 | Oncology outpatient (recurring) (ONCR) | payer MEDICARE, OTHER, SELFPAY ==
[2022-08-02 10:03] LABS: Basophils # 0.1 10^3/uL (0.0-0.1); Basophils % 1.2 %; Eosinophils # 0.4 10^3/uL (0.0-0.8); Eosinophils % 4.8 %; Hematocrit 41.4 % (42.0-52.0); Hemoglobin 14.2 g/dL (11.7-16.6); Lymphocytes # 1.7 10^3/uL (0.8-4.8); Lymphocytes % 22.2 %; Mean Corpuscular HGB Conc 34.3 g/dL (30.0-36.0); Mean Corpuscular Hemoglobin 31.6 pg (28.0-34.0); Mean Corpuscular Volume 92.2 fl (80-94); Mean Platelet Volume 10.9 fL (7.4-10.4); Monocytes # 0.6 10^3/uL (0.2-0.9); Neutrophils # 4.74 10^3/uL (1.8-7.7); Neutrophils % 63.5 %; Nucleated Red Blood Cells % 0 %; Platelet Count 198 10^3/cmm (130-400); Red Blood Count 4.49 10^6/uL (4.1-5.3); Red Cell Distribution Width 11.9 % (12.1-15.1); White Blood Count 7.5 10^3/uL (4.0-10.0)
[2022-08-02 10:31] LABS: Carcinoembryonic Antigen 3.9 ng/mL (0.0-4.7)
[2022-08-02 10:42] LABS: Alanine Aminotransferase 16 U/L (0-41); Albumin Level 3.7 g/dL (3.5-5.2); Alkaline Phosphatase 115 U/L (40-130); Aspartate Amino Transferase 15 U/L (0-40); Blood Urea Nitrogen 20 mg/dL (8-23); Calcium 8.5 mg/dL (8.5-10.5); Carbon Dioxide 22 mmol/L (22-29); Chloride 105 mmol/L (98-107); Glucose 136 mg/dL (65-115); Osmolality Calculated 291 mOsm/kg (285-295); Sodium 138 mmol/L (136-145); Total Bilirubin 0.7 mg/dL (0.15-1.2); Total Protein 6.7 g/dL (6.6-8.7)
== END 2022-08-08 23:59 | disposition home or self-care (01) ==
PROVIDERS: PCP Internal Medicine Medical Oncology; Visit Provider Internal Medicine Medical Oncology
DX: Z08 Encounter for follow-up examination after completed treatment for malignant neoplasm (principal); Z85.038 Personal history of other malignant neoplasm of large intestine; R91.1 Solitary pulmonary nodule; Z90.2 Acquired absence of lung [part of]; R59.1 Generalized enlarged lymph nodes; Z95.828 Presence of other vascular implants and grafts; Z92.21 Personal history of antineoplastic chemotherapy; Z92.3 Personal history of irradiation
CPT/HCPCS: 36591; 80053; 82378; 85025; 99214

== ENCOUNTER 2022-09-07 14:23 | Oncology outpatient (recurring) (ONCR) | payer MEDICARE, OTHER, SELFPAY ==
[2022-09-07 14:43] VITALS: BP 143/81; PULSE 67; RESP 16; TEMP 36.4; O2SAT 98
== END 2022-09-08 23:59 | disposition home or self-care (01) ==
LOC: ONCMED 14:24
PROVIDERS: PCP Internal Medicine Medical Oncology; Visit Provider Internal Medicine Medical Oncology
DX: Z45.2 Encounter for adjustment and management of vascular access device (principal); Z95.828 Presence of other vascular implants and grafts
CPT/HCPCS: 96523

== ENCOUNTER 2022-10-05 14:19 | Oncology outpatient (recurring) (ONCR) | payer MEDICARE, OTHER, SELFPAY ==
[2022-10-05 14:45] VITALS: BP 134/78; PULSE 71; RESP 20; TEMP 36.8; O2SAT 98
== END 2022-10-08 23:59 | disposition home or self-care (01) ==
LOC: ONCMED 14:20
PROVIDERS: PCP Internal Medicine Medical Oncology; Visit Provider Internal Medicine Medical Oncology
DX: Z45.2 Encounter for adjustment and management of vascular access device (principal)
CPT/HCPCS: J1642

== ENCOUNTER 2022-10-23 11:36 | Outpatient (CLI) | payer MEDICARE, OTHER, SELFPAY ==
[2022-10-23] MEDS: iohexol 350 mg/mL 500 mL Btl (per mL) PO (12:51)
--- NOTE | 2022-10-23 13:00 | CTR_ITS ---
PROCEDURE INFORMATION: Exam: CT Chest With Contrast; Diagnostic Exam date and time: 10/23/2022 1:11 PM Age: 67 years old Clinical indication: Prior surgery; Surgery date: 6+ months; Surgery type: Port, liver, colo/rectal; HX of colorectal cancer with mets; Followup 07/28/22 scan with attention to left pericardial so, followup 07/28/22 scan with attention to left pericardial TECHNIQUE: Imaging protocol: Diagnostic computed tomography of the chest with contrast. Radiation optimization: All CT scans at this facility use at least one of these dose optimization techniques: automated exposure control; mA and/or kV adjustment per patient size (includes targeted exams where dose is matched to clinical indication); or iterative reconstruction. Contrast material: OMNI 350; Contrast volume: 95 ml; Contrast route: INTRAVENOUS (IV); REPORTING DATA: Count of CT and Cardiac NM exams in prior 12 months: This patient has received 3 known CTs and 0 known cardiac nuclear medicine studies in the 12 months prior to the current study. COMPARISON: CT chest abdpel w/*[id number] 07/28/2022 11:27 AM RADIATION DOSE METRICS: Total DLP (mGy-cm): 1225.46 FINDINGS: Tubes, catheters and devices: There is a left chest port with the line tip appropriately positioned in the lower SVC near the cavoatrial junction. Lungs: There is focal parenchymal scarring and architectural distortion in the anterior superior left upper lobe. There are pulmonary sutures in the lingula. There is no consolidation. There are scattered calcified and noncalcified nodules in the right lung measuring up to 8 mm on series 5, image 39. There are calcified and noncalcified nodules in the left lung measuring up to 4 mm on series 5, image 27. The nodules are unchanged since 07/28/2022. Pleural spaces: There is no pleural effusion or pneumothorax. Heart: There is an 18 x 17 x 14 mm soft tissue density pericardial nodule visible on axial series 4, image 44. The lesion measured 14 x 13 x 11 mm on 07/28/2022. Heart size is normal. There is no pericardial effusion. Lymph nodes: Mediastinal lymph nodes are normal. Vasculature: There is mild aortic atherosclerotic disease. Central pulmonary arteries are unremarkable. Bones/joints: Bones are unremarkable. Soft tissues: The extrathoracic soft tissues are unremarkable. Other findings: There is a small volume of extravasated contrast surrounding the left chest port. PROCEDURE INFORMATION: Exam: CT Abdomen And Pelvis With Contrast Exam date and time: 10/23/2022 1:11 PM Age: 67 years old Clinical indication: Abnormal findings; Abnormal radiologic finding of the abdomen; Radiologic exam and body structure: CT abd/pelvis; Abnormal radiologic exam of lung or chest; Prior surgery; Surgery date: 6+ months; Surgery type: Port, liver, colo/rectal; Patient HX: HX of colorectal cancer with mets; Additional info: Followup 07/28/22 scan with attention to left pericardial so, followup 07/28/22 scan with attention to left pericardial TECHNIQUE: Imaging protocol: Computed tomography of the abdomen and pelvis with contrast. Radiation optimization: All CT scans at this facility use at least one of these dose optimization techniques: automated exposure control; mA and/or kV adjustment per patient size (includes targeted exams where dose is matched to clinical indication); or iterative reconstruction. Contrast material: OMNI 350; Contrast volume: 95 ml; Contrast route: INTRAVENOUS (IV); REPORTING DATA: Count of CT and Cardiac NM exams in prior 12 months: This patient has received 3 known CTs and 0 known cardiac nuclear medicine studies in the 12 months prior to the current study. COMPARISON: CT chest abdpel w/*[id number] 07/28/2022 11:27 AM RADIATION DOSE METRICS: Total DLP (mGy-cm): 1225.46 FINDINGS: Liver: Left hepatectomy. 17 x 12 mm hypodense nodule in the peripheral right lobe of the liver on axial series 6, image 23. No change since 07/28/2022. Gallbladder and bile ducts: The gallbladder is absent. There is no intrahepatic or extrahepatic bile duct dilation. Pancreas: The pancreas is unremarkable. Spleen: The spleen is unremarkable. Adrenal glands: The adrenal glands are unremarkable. Kidneys and ureters: Mild bilateral renal atrophy. There is a simple cyst in the left kidney. There is no hydronephrosis or stones. Stomach and bowel: The stomach is decompressed, preventing meaningful evaluation of wall thickness. The small bowel is nondilated. There is mild distal descending and sigmoid colonic diverticulosis without evidence of diverticulitis. Appendix: The appendix is not visible. Intraperitoneal space: There is no free air or significant intraperitoneal free fluid. Vasculature: There is mild aortic atherosclerotic disease. There is subtle luminal irregularity of the proximal superior mesenteric artery which is better visualized on the prior CT of 04/21/2022. High-grade luminal narrowing is appreciated on the prior exam but not clearly visualized here. More distally the artery is normal. The celiac artery is unremarkable. The portal, splenic and superior mesenteric veins are patent. Lymph nodes: There is no lymphadenopathy in the retroperitoneum, mesentery, pelvis or inguinal regions. Urinary bladder: The urinary bladder is unremarkable. Reproductive: The prostate and seminal vesicles are unremarkable. Bones/joints: There is severe multilevel degenerative disease in the lumbar spine. There is moderate degenerative disease of both hips. The bony pelvis is intact. Soft tissues: The abdominal wall is intact. CT/CT chest abdpel w/*[id number] IMPRESSION: 1. Significantly increased size of a soft tissue density pericardial nodule since 07/28/2022. Probable neoplasm. 2. Scattered bilateral pulmonary nodules measuring up to 8 mm, stable since 07/28/2022. Granulomas versus metastases. Fleischner Society follow up recommendations for incidental nodules are not indicated. Follow up per the patient's medical condition. 3. Focal parenchymal scarring in the left upper lobe is stable since 07/28/2022. 4. Small volume contrast extravasation from the left chest port. Check port function. IMPRESSION: 1. Stable appearance of the liver. Left hepatectomy and 17 mm hypodense nodule in the peripheral right lobe. No change since 07/28/2022. 2. 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 Findings are better visualized on CT of 04/21/2022. Recommend nonemergent follow-up CT arteriogram of the abdomen and pelvis. 3. Incidental findings above. COMMENTS: Consistent with the [employer]'s Incidental Findings Committee white paper (J Am Martha Radiol 2018): Any incidental renal lesion less than 1 cm or classified as too small to characterize, or any incidental cystic renal lesion characterized as simple-appearing, is likely benign. No follow-up imaging is recommended for these lesions per consensus recommendations based on imaging criteria.
[2022-10-23 13:09] LABS: Blood Urea Nitrogen 15 mg/dL (8-23); Glomerular Filtration Rate 66.4 mL/min (90-130)
[2022-10-23] MEDS: iohexol 350 mg/mL 500 mL Btl (per mL) IV (13:21)
== END 2022-10-23 11:37 | disposition home or self-care (01) ==
LOC: RAD 11:40
PROVIDERS: PCP Internal Medicine Medical Oncology; Visit Provider Nurse Practitioner
DX: C20 Malignant neoplasm of rectum (principal); C78.02 Secondary malignant neoplasm of left lung
CPT/HCPCS: 71260; 74177; 82565; 84520; Q9967

== ENCOUNTER 2022-11-18 05:39 | Outpatient (CLI) | payer MEDICARE, OTHER, SELFPAY ==
--- NOTE | 2022-11-18 12:00 | PETR_ITS ---
PROCEDURE INFORMATION: Exam: PET/CT Skull Base to Mid-thigh Exam date and time: 11/18/2022 1:28 PM Age: 67 years old Clinical indication: Condition or disease; Primary cancer: Adenocarcinoma of rectum; Follow-up oncological assessment; Prior surgery; Surgery date: 6+ months; Surgery type: Liver, lung-left, appy, gb; Additional info: Restaging, enlarging pulmonary nodule LABS AND CLINICAL REPORTS: Glucose: 119 mg/dl Treatment strategy for malignancy (PET staging): Restaging (PS) TECHNIQUE: Imaging protocol: Following at least four-hour fasting and following the injection of radiopharmaceutical, low dose CT images were obtained. Then, PET images were obtained. Attenuation corrected images were constructed using the CT scan. Fused images of PET and CT were reviewed. The standardized uptake values (SUV) reported below are maximum values within a region of interest, expressed in gm/ml. Exam includes orbital meatal line to mid-thigh. Radiopharmaceutical: 12.29 mCi F-18 FDG (Fluorodeoxyglucose), IV. Time of imaging post radiopharmaceutical administration: 1 hour Injection site: Right antecubital COMPARISON: CT chest, abdomen and pelvis 10/23/2022, PT PET Scan 02/12/2021 9:14 AM FINDINGS: Limitations: The examination is technically suboptimal secondary to the scan to injection time outside of recommended parameters (45-75 minutes). Reported scan to injection time of 91.55 minutes. Injection to scan times outside of recommended parameters can result in decreased PET sensitivity and limit the utility of comparison of SUV values to prior or subsequent exams. Tubes, catheters and devices: A left subclavian central venous port catheter terminates in the distal SVC. Brain: Visualized brain has normal physiologic uptake. Pharynx: No abnormal uptake. Larynx: No abnormal uptake. Lungs, pleura and trachea: Similar ovoid region of non radiotracer avid streaky density in the anterior left lung compatible with postoperative scarring compared with 10/23/2022 associated with resection of the previously noted radiotracer avid left upper lobe nodule on the prior PET-CT. A soft tissue density nodule in the anterior left lower lobe adjacent to the pericardium measures 1.4 x 1.6 cm on series 3, image 68, SUV max 11.5. This is similar in size compared with 10/23/2022, new since the prior PET-CT There are scattered bilateral calcified granulomas. Similar noncalcified approximately 2 mm lateral left upper lobe nodule on series 3, image 55 and similar approximately 3 mm left upper lobe nodule on series 3, image 53 since the prior PET-CT without elevated uptake. Similar inferior right upper lobe 4 mm non radiotracer avid nodule on series 3, image 59. An ovoid anterior right middle lobe nodule is similar without abnormal uptake measuring 0.6 x 0.4 cm. Additional small noncalcified bilateral pulmonary nodules are unchanged compared with the prior PET-CT. Heart: Normal physiologic uptake. Mediastinal space: No abnormal uptake. Liver: No abnormal uptake. Postoperative changes of the liver are noted. In the region of a pre fluid the located right liver lobe hypodense focus an approximately 1.2 cm in diameter region of low density is noted on CT series 3 image 83 without elevated uptake. Assessment of the size of this structure is limited without intravenous contrast. Gallbladder and bile ducts: No abnormal uptake. Cholecystectomy clips are present. Pancreas: No abnormal uptake. Spleen: No abnormal uptake. Adrenal glands: No abnormal uptake. Kidneys and ureters: Normal physiologic uptake. Stomach and bowel: No abnormal uptake. There are scattered colonic diverticula. Vasculature: No abnormal uptake. Diffuse atherosclerotic changes are noted. Lymph nodes: Mildly prominent mediastinal and right hilar lymph nodes appear similar in size since at least the prior PET-CT. A mildly prominent precarinal lymph node measures 1.9 x 1.3 cm on series 3, image 53, SUV max 3.4 (previously 2.7). An approximately 1 cm in diameter right hilar lymph node on series 3, image 57 is noted, SUV max 4.8 (previously 4.3). A mildly prominent subcarinal lymph node measures 1.3 cm on series 3, image 59, SUV max 3.5 (previously 2.8). Mild new uptake in the left hilar region is noted without a well-defined lymph node, SUV max 4.7 (previously 3.0) on PET series 4, image 56. Bones/joints: Mild degenerative appearing uptake is identified in the lateral right hip joint, SUV max 3.6 (previously 3.0). Extensive appearing degenerative spondylosis within the spine appears diffuse. Soft tissues: No abnormal uptake in the visualized head, neck, chest, abdomen, pelvis, and extremities. METRICS: Mediastinal blood pool: SUV max 1.9 PET/PET [facility] SUBSEQ [id number] IMPRESSION: 1. A nodule in the anterior left lower lobe adjacent to the pericardium is new since the prior PET-CT with elevated uptake (SUV max 11.5) consistent with malignancy. 2. Non radiotracer avid linear density in the left upper lobe is similar compared with 10/23/2022 compatible with postoperative scarring. 3. Similar size of mildly prominent mediastinal and right hilar lymph nodes since the prior PET-CT with mildly increased uptake. New uptake is also identified in the left hilar region without a well-defined lymph node.This uptake may be reactive, secondary to infectious or inflammatory involvement. Neoplastic involvement cannot be entirely excluded. 4. Small non radiotracer avid noncalcified bilateral pulmonary nodules are similar in size and number compared with at least the prior PET-CT. Assessment of small nodules can be limited by PET-CT. 5. Postoperative changes of the liver are noted. A low-density lesion in the lateral right liver lobe is not radiotracer avid favoring a benign etiology. 6. Additional nonurgent findings as detailed above.
== END 2022-11-18 05:40 | disposition home or self-care (01) ==
LOC: RAD 11-20 05:40
PROVIDERS: PCP Internal Medicine Medical Oncology; Visit Provider Internal Medicine Medical Oncology
DX: C20 Malignant neoplasm of rectum (principal); R91.8 Other nonspecific abnormal finding of lung field; Z98.890 Other specified postprocedural states
CPT/HCPCS: 78815; A9552

== ENCOUNTER 2022-12-14 11:23 | Oncology outpatient (recurring) (ONCR) | payer MEDICARE, OTHER, SELFPAY ==
[2022-12-14 12:19] VITALS: BP 142/84; PULSE 77; RESP 18; TEMP 36.4; O2SAT 98
== END 2023-01-08 23:59 | disposition home or self-care (01) ==
PROVIDERS: PCP Internal Medicine Medical Oncology; Visit Provider Internal Medicine Medical Oncology
DX: C20 Malignant neoplasm of rectum (principal); C78.7 Secondary malignant neoplasm of liver and intrahepatic bile duct; C78.02 Secondary malignant neoplasm of left lung; C78.01 Secondary malignant neoplasm of right lung; Z90.2 Acquired absence of lung [part of]; Z90.49 Acquired absence of other specified parts of digestive tract; Z79.899 Other long term (current) drug therapy; Z92.21 Personal history of antineoplastic chemotherapy; Z92.3 Personal history of irradiation
CPT/HCPCS: 96523; 99214; J1642

== ENCOUNTER 2023-03-12 09:40 | Outpatient (CLI) | payer MEDICARE, OTHER, SELFPAY ==
--- NOTE | 2023-03-12 10:00 | CT_ITS ---
WS: [id number] CT chest w con* [id number] HISTORY: Colorectal cancer. Metastatic disease to liver and lungs. TECHNIQUE: Axial imaging performed through the thorax. Coronal and sagittal reformats are submitted. [facility] use at least one of these dose optimization techniques: automated exposure control; mA and/or kV adjustment per patient size (includes targeted exams where dose is mat ched to clinical indication); or iterative reconstruction. CONTRAST: Omnipaque 350; 100 mL IV. DLP: 554.26 mGy.cm COMPARISON: 10/23/2022, PET/CT 11/18/2022 Lungs and central airway: Status post partial resection LEFT upper lobe. Focal area of scarring in a linear configuration in the LEFT upper lobe is stable. The associated soft tissue component is unchan ged. This was negative on the recent PET/CT. Previously described nodule abutting the pericardium is no longer present. Patient has additional numerous small pulmonary nodules throughout both lungs whic h have not significantly increased in size. Pleura: Normal. No pleural effusion. Heart and pericardium: Normal size heart with no pericardial effusion. Mediastinum and trae: Mediastinal and hilar lymph nodes are reidentified. RIGHT suprahilar lymph node at 15 mm. Largest paratracheal lymph node is 11 mm along the inferior RIGHT paratracheal region. Thi s lymph node has slightly increased in size and is slightly more rounded. Mild prominence of the santi hilar lymph nodes with the largest measuring up to 10 mm on the LEFT. Vessels: Very mild atherosclerosis aorta. Normal sized pulmonary artery. Chest wall and lower neck: LEFT subclavian Mediport. Upper abdomen: Prior cholecystectomy. PET/CT negative RIGHT hepatic low-attenuation mass is unchanged . No adrenal mass. Osseous structures: Large anterior bridging osteophytes throughout the thoracic spine. No osteoblasti c or osteolytic bone disease. IMPRESSION: 1. PET/CT positive LEFT pericardial nodule has resolved completely. 2. Numerous bilateral subcentimeter pulmonary nodules appear stable. No new or enlarging nodules. 3. Inferior RIGHT paratracheal and bilateral hilar lymph nodes have slightly increased in size since 10/23/2022. Close imaging and clinical follow-up. Early metastatic adenopathy is not excluded. 4. No change in appearance of the RIGHT hepatic lesion which was PET/CT negative. 5. No adrenal metastasis. 6. Prior cholecystectomy. 7. Postoperative changes and scarring LEFT upper lobe are stable.
[2023-03-12 10:15] LABS: Blood Urea Nitrogen 17 mg/dL (8-23); Glomerular Filtration Rate 66.4 mL/min (90-130)
[2023-03-12] MEDS: iohexol 350 mg/mL 500 mL Btl (per mL) IV (10:19)
== END 2023-03-12 09:41 | disposition home or self-care (01) ==
LOC: RAD 09:44
PROVIDERS: PCP Internal Medicine Medical Oncology; Visit Provider Internal Medicine Medical Oncology
DX: C20 Malignant neoplasm of rectum (principal); C78.02 Secondary malignant neoplasm of left lung
CPT/HCPCS: 71260; 82565; 84520; Q9967

== ENCOUNTER 2023-03-22 12:19 | Oncology outpatient (recurring) (ONCR) | payer MEDICARE, OTHER, SELFPAY ==
[2023-03-22 12:46] VITALS: BP 157/89; PULSE 83; RESP 17; TEMP 36.4; O2SAT 98
[2023-03-22 12:58] LABS: Basophils # 0.1 10^3/uL (0.0-0.1); Basophils % 1.1 %; Eosinophils # 0.8 10^3/uL (0.0-0.8); Eosinophils % 10.2 %; Hematocrit 42.2 % (37-53); Lymphocytes % 25.1 %; Mean Corpuscular HGB Conc 33.9 g/dL (30-55); Mean Corpuscular Hemoglobin 30.6 pg (27-33); Mean Corpuscular Volume 90.2 fl (82-101); Mean Platelet Volume 10.6 fL (7.4-10.4); Monocytes # 0.7 10^3/uL (0.2-0.9); Monocytes % 8.2 %; Neutrophils # 4.37 10^3/uL (1.8-7.7); Neutrophils % 55.1 %; Nucleated Red Blood Cells % 0 %; Platelet Count 205 10^3/cmm (157-399); Red Blood Count 4.68 10^6/uL (3.85-5.65); Red Cell Distribution Width 12.4 % (12.1-15.1); White Blood Count 7.93 10^3/uL (3.29-11.43)
[2023-03-22 13:18] LABS: Alanine Aminotransferase 17 U/L (0-41); Albumin Level 4.2 g/dL (3.5-5.2); Alkaline Phosphatase 129 U/L (40-130); Aspartate Amino Transferase 18 U/L (0-40); Blood Urea Nitrogen 20 mg/dL (8-23); Calcium 8.8 mg/dL (8.5-10.5); Carbon Dioxide 23 mmol/L (22-29); Chloride 105 mmol/L (98-107); Glomerular Filtration Rate 66.4 mL/min (90-130); Glucose 84 mg/dL (65-115); Osmolality Calculated 290 mOsm/kg (285-295); Sodium 139 mmol/L (136-145); Total Bilirubin 0.4 mg/dL (0.15-1.2); Total Protein 7.2 g/dL (6.6-8.7)
[2023-03-22 13:20] LABS: Anion Gap 15.3 (5-19); Potassium 4.3 mmol/L (3.5-5.1)
[2023-03-22] MEDS: flu vacc pf 2023-24 (6 mos+) 60 MCG IM (14:58)
== END 2023-04-10 23:59 | disposition home or self-care (01) ==
PROVIDERS: Nurse Practitioner Family; PCP Internal Medicine Medical Oncology; Visit Provider Internal Medicine Medical Oncology
DX: Z45.2 Encounter for adjustment and management of vascular access device (principal); C78.02 Secondary malignant neoplasm of left lung; C20 Malignant neoplasm of rectum; Z95.828 Presence of other vascular implants and grafts; Z79.899 Other long term (current) drug therapy; Z23 Encounter for immunization
CPT/HCPCS: 80053; 85025; 90471; 90686; 99214; J1642

== ENCOUNTER 2023-04-26 14:37 | Oncology outpatient (recurring) (ONCR) | payer MEDICARE, OTHER, SELFPAY | END 2023-05-10 23:59 | disposition home or self-care (01) | LOC: ONCMED 14:37 | PROVIDERS: PCP Internal Medicine Medical Oncology; Visit Provider Internal Medicine Medical Oncology | DX: Z45.2 Encounter for adjustment and management of vascular access device (principal) | CPT/HCPCS: 96523; J1642 ==

== ENCOUNTER 2023-05-24 15:03 | Oncology outpatient (recurring) (ONCR) | payer MEDICARE, OTHER, SELFPAY | END 2023-06-10 23:59 | disposition home or self-care (01) | LOC: ONCMED 15:03 | PROVIDERS: PCP Internal Medicine Medical Oncology; Visit Provider Internal Medicine Medical Oncology | DX: Z45.2 Encounter for adjustment and management of vascular access device (principal) | CPT/HCPCS: J1642 ==

== ENCOUNTER 2023-06-18 09:29 | Outpatient (CLI) | payer MEDICARE, OTHER, SELFPAY ==
[2023-06-18 10:22] LABS: Blood Urea Nitrogen 15 mg/dL (8-23); Glomerular Filtration Rate 73.9 mL/min (90-130)
[2023-06-18] MEDS: iohexol 350 mg/mL 500 mL Btl (per mL) IV (10:41)
--- NOTE | 2023-06-18 13:00 | CT_ITS ---
WS: [id number] CT CHEST TECHNIQUE: Contrast enhanced CT of the chest with coronal and sagittal reformatted images. CLINICAL INFORMATION: surveillance COMPARISON: CT chest 03/12/2023 and PET/CT 11/18/2022 DLP: 622.[address] scans at [facility] use at least one of these dose optimization techniques: automated e xposure control; mA and/or kV adjustment per patient size (includes targeted exams where dose is matc hed to clinical indication); or iterative reconstruction. FINDINGS: Numerous previously described bilateral subcentimeter pulmonary nodules are stable compared to the pr ior studies. No new suspicious nodules. Scattered calcified granulomas. Postoperative parenchymal sca rring in the LEFT upper lobe. Partial resection LEFT upper lobe. Mild aortic calcification. Normal ca liber thoracic aorta. Proximal main pulmonary arteries are normal. Previously described RIGHT hepatic lesion which was PET/CT negative is unchanged. Prior cholecystecto my. Previously described pericardial nodule on the PET/CT has resolved. IMPRESSION: 1. No significant changes since 03/12/2023. 2. Stable bilateral subcentimeter pulmonary nodules. No new or progressed nodules. 3. Postoperative changes with parenchymal scarring LEFT upper lobe. 4. No mediastinal or hilar lymphadenopathy today. This has improved compared to previous. 5. Prior cholecystectomy.
== END 2023-06-18 09:30 | disposition home or self-care (01) ==
LOC: RAD 09:30
PROVIDERS: PCP Internal Medicine Medical Oncology; Visit Provider Nurse Practitioner Family
DX: C78.02 Secondary malignant neoplasm of left lung (principal)
CPT/HCPCS: 71260; 82565; 84520; Q9967

== ENCOUNTER 2023-06-28 11:17 | Oncology outpatient (recurring) (ONCR) | payer MEDICARE, OTHER, SELFPAY ==
[2023-06-28 11:30] VITALS: BP 138/80; PULSE 88; RESP 16; TEMP 36.4; O2SAT 98
[2023-06-28 11:38] LABS: Basophils # 0.1 10^3/uL (0.0-0.1); Basophils % 1.2 %; Eosinophils # 0.2 10^3/uL (0.0-0.8); Eosinophils % 2.5 %; Hematocrit 39.4 % (37-53); Lymphocytes # 1.8 10^3/uL (0.8-4.8); Lymphocytes % 21.8 %; Mean Corpuscular HGB Conc 34.5 g/dL (30-55); Mean Corpuscular Hemoglobin 30.9 pg (27-33); Mean Corpuscular Volume 89.5 fl (82-101); Mean Platelet Volume 10.1 fL (7.4-10.4); Monocytes # 0.5 10^3/uL (0.2-0.9); Monocytes % 6.3 %; Neutrophils # 5.75 10^3/uL (1.8-7.7); Nucleated Red Blood Cells % 0 %; Platelet Count 286 10^3/cmm (157-399); Red Cell Distribution Width 11.7 % (12.1-15.1); White Blood Count 8.45 10^3/uL (3.29-11.43)
[2023-06-28 11:56] LABS: Alanine Aminotransferase 13 U/L (0-41); Albumin Level 3.8 g/dL (3.5-5.2); Alkaline Phosphatase 119 U/L (40-130); Anion Gap 12.4 (5-19); Aspartate Amino Transferase 12 U/L (0-40); Blood Urea Nitrogen 14 mg/dL (8-23); Calcium 9.1 mg/dL (8.5-10.5); Carbon Dioxide 25 mmol/L (22-29); Chloride 102 mmol/L (98-107); Globulin 3.6 g/dL (1.3-4.6); Glomerular Filtration Rate 83.4 mL/min (90-130); Glucose 85 mg/dL (65-115); Osmolality Calculated 280 mOsm/kg (285-295); Potassium 4.4 mmol/L (3.5-5.1); Sodium 135 mmol/L (136-145); Total Bilirubin 0.5 mg/dL (0.15-1.2); Total Protein 7.4 g/dL (6.6-8.7)
[2023-06-28 13:55] LABS: Carcinoembryonic Antigen 3.6 ng/mL (0.0-4.7)
== END 2023-07-11 23:59 | disposition home or self-care (01) ==
PROVIDERS: Nurse Practitioner Family; PCP Internal Medicine Medical Oncology; Visit Provider Internal Medicine Medical Oncology
DX: Z45.2 Encounter for adjustment and management of vascular access device (principal); Z95.828 Presence of other vascular implants and grafts; C78.02 Secondary malignant neoplasm of left lung; C20 Malignant neoplasm of rectum; C78.7 Secondary malignant neoplasm of liver and intrahepatic bile duct; Z79.899 Other long term (current) drug therapy
CPT/HCPCS: 36591; 80053; 82378; 85025; 99214; J1642

== ENCOUNTER 2023-07-26 14:49 | Oncology outpatient (recurring) (ONCR) | payer MEDICARE, OTHER, SELFPAY | END 2023-08-09 23:59 | disposition home or self-care (01) | LOC: ONCMED 14:49 | PROVIDERS: PCP Internal Medicine Medical Oncology; Visit Provider Internal Medicine Medical Oncology | DX: Z45.2 Encounter for adjustment and management of vascular access device (principal) | CPT/HCPCS: 96523; J1642 ==

== ENCOUNTER 2023-08-23 13:44 | Oncology outpatient (recurring) (ONCR) | payer MEDICARE, OTHER, SELFPAY | END 2023-09-09 23:59 | disposition home or self-care (01) | LOC: ONCMED 13:45 | PROVIDERS: PCP Internal Medicine Medical Oncology; Visit Provider Internal Medicine Medical Oncology | DX: Z45.2 Encounter for adjustment and management of vascular access device (principal) | CPT/HCPCS: 96523; J1642 ==

== ENCOUNTER 2023-09-27 14:01 | Oncology outpatient (recurring) (ONCR) | payer MEDICARE, OTHER, SELFPAY ==
[2023-09-27 14:22] LABS: Basophils # 0.1 10^3/uL (0.0-0.1); Basophils % 1.1 %; Eosinophils # 0.5 10^3/uL (0.0-0.8); Eosinophils % 5.9 %; Hematocrit 39.6 % (37-53); Lymphocytes # 2.1 10^3/uL (0.8-4.8); Lymphocytes % 23.2 %; Mean Corpuscular HGB Conc 35.1 g/dL (30-55); Mean Corpuscular Volume 88.4 fl (82-101); Mean Platelet Volume 10.5 fL (7.4-10.4); Monocytes # 0.6 10^3/uL (0.2-0.9); Monocytes % 6.5 %; Neutrophils # 5.59 10^3/uL (1.8-7.7); Nucleated Red Blood Cells % 0 %; Platelet Count 224 10^3/cmm (157-399); Red Blood Count 4.48 10^6/uL (3.85-5.65); Red Cell Distribution Width 12.5 % (12.1-15.1); White Blood Count 8.88 10^3/uL (3.29-11.43)
[2023-09-27 14:39] LABS: Alanine Aminotransferase 12 U/L (0-41); Alkaline Phosphatase 129 U/L (40-130); Anion Gap 13.1 (5-19); Aspartate Amino Transferase 12 U/L (0-40); Blood Urea Nitrogen 17 mg/dL (8-23); Calcium 8.9 mg/dL (8.5-10.5); Carbon Dioxide 24 mmol/L (22-29); Chloride 104 mmol/L (98-107); Creatinine Clr Calc Pharmacy 64.1194; Globulin 3.3 g/dL (1.3-4.6); Glomerular Filtration Rate 59.9 mL/min (90-130); Glucose 97 mg/dL (65-115); Osmolality Calculated 285 mOsm/kg (285-295); Potassium 4.1 mmol/L (3.5-5.1); Sodium 137 mmol/L (136-145); Total Bilirubin 0.4 mg/dL (0.15-1.2); Total Protein 7.3 g/dL (6.6-8.7)
== END 2023-10-09 23:59 | disposition home or self-care (01) ==
PROVIDERS: PCP Internal Medicine Medical Oncology; Visit Provider Internal Medicine Medical Oncology
DX: Z45.2 Encounter for adjustment and management of vascular access device (principal); C20 Malignant neoplasm of rectum; C78.02 Secondary malignant neoplasm of left lung; I10 Essential (primary) hypertension; Z79.899 Other long term (current) drug therapy
CPT/HCPCS: 36591; 80053; 85025; 99213

== ENCOUNTER 2023-10-29 13:25 | Oncology outpatient (recurring) (ONCR) | payer MEDICARE, OTHER, SELFPAY | END 2023-11-09 23:59 | disposition home or self-care (01) | LOC: ONCMED 13:25 | PROVIDERS: PCP Internal Medicine Medical Oncology; Visit Provider Internal Medicine Medical Oncology | DX: Z45.2 Encounter for adjustment and management of vascular access device (principal) ==

== ENCOUNTER 2023-11-26 09:48 | Outpatient (CLI) | payer MEDICARE, OTHER, SELFPAY ==
--- NOTE | 2023-11-26 11:00 | CTR_ITS ---
PROCEDURE INFORMATION: Exam: CT Chest With Contrast; Diagnostic Exam date and time: 11/26/2023 11:21 AM Age: 68 years old Clinical indication: Condition or disease; Other: Colorectal cancer mets; Primary cancer: Colon, liver, lungs; Prior surgery; Surgery date: 6+ months; Surgery type: Port, liver, left lung, colo/rectal; Additional info: Malignant neoplasm of rectum TECHNIQUE: Imaging protocol: Diagnostic computed tomography of the chest with contrast. Radiation optimization: All CT scans at this facility use at least one of these dose optimization techniques: automated exposure control; mA and/or kV adjustment per patient size (includes targeted exams where dose is matched to clinical indication); or iterative reconstruction. Contrast material: OMNI 350; Contrast volume: 100 ml; Contrast route: INTRAVENOUS (IV); COMPARISON: CT chest w con* [id number] 06/18/2023 10:24 AM RADIATION DOSE METRICS: Total DLP (mGy-cm): 1148.75 FINDINGS: Lungs: Lung windows demonstrate bilateral small 5 mm or less pulmonary nodules that appear stable with prior exam 06/18/2023, along with a few small scattered calcified granulomas. No interval new or suspicious pulmonary nodule is seen from prior exam. There is again suggestion of postoperative parenchymal scarring in the left upper lobe when correlated with prior exam with previous partial resection left upper lobe. Mild chronic left basilar scarring with prior exam also suggested. No infiltrate or consolidation otherwise. Pleural spaces: No pleural effusion or pneumothorax. Heart: Unremarkable. No cardiomegaly. No pericardial effusion. Lymph nodes: Nonspecific lymph nodes identified within the mediastinal region appear stable or unchanged with previous exam, as well. Vasculature: Mild arteriosclerosis thoracic aorta, without findings of dissection or aneurysm. Pulmonary arteries appear unremarkable. Bones/joints: Spondylotic change thoracic spine. Soft tissues: Unremarkable. PROCEDURE INFORMATION: Exam: CT Abdomen And Pelvis With Contrast Exam date and time: 11/26/2023 11:21 AM Age: 68 years old Clinical indication: Condition or disease; Other: Colorectal cancer mets; Primary cancer: Colon, liver, lungs; Prior surgery; Surgery date: 6+ months; Surgery type: Port, liver, left lung, colo/rectal; Additional info: Malignant neoplasm of rectum TECHNIQUE: Imaging protocol: Computed tomography of the abdomen and pelvis with contrast. Radiation optimization: All CT scans at this facility use at least one of these dose optimization techniques: automated exposure control; mA and/or kV adjustment per patient size (includes targeted exams where dose is matched to clinical indication); or iterative reconstruction. Contrast material: OMNI 350; Contrast volume: 100 ml; Contrast route: INTRAVENOUS (IV); [id number] 11/18/2022 1:28 PM RADIATION DOSE METRICS: Total DLP (mGy-cm): 1148.75 FINDINGS: Liver: Postsurgical change of the liver with previous left hepatectomy. Rounded hypodense focus within the peripheral right lobe with 2 punctate calcifications along the peripheral margin appear stable with 06/18/2023 exam, as well as prior CT chest abdomen and pelvis of 10/23/2022. Gallbladder and bile ducts: Previous cholecystectomy. No significant biliary ductal dilatation. Pancreas: Normal. No ductal dilation. Spleen: Normal. No splenomegaly. Adrenal glands: Normal. No mass. Kidneys and ureters: A couple of small subcentimeter rounded hypodense foci within the cortex of the left kidney suggesting small renal cysts and appearing unchanged from 2022 exam. No findings of urinary calculus or obstructive uropathy or perinephric stranding. Stomach and bowel: Mild scattered colonic diverticulosis without findings to indicate diverticulitis. No small bowel dilatation or obstruction. Incomplete gastric distension. Appendix: The appendix is not visualized. No secondary signs of appendicitis. Intraperitoneal space: No free fluid or ascites or fluid collection. No free air. Vasculature: [id number] atherosclerotic vascular disease with nonaneurysmal abdominal aorta. This involves the takeoff of the superior mesenteric artery and renal arteries. Major vascular structures appear patent. Lymph nodes: No significant lymphadenopathy. Urinary bladder: Suboptimal urinary bladder distension with mild generalized wall thickening. No significant focal abnormality. Reproductive: Prostate gland is mildly prominent with chronic calcification, unchanged with prior exam. Bones/joints: Degenerative bony change, particularly lumbar spine. Soft tissues: Mild focal diastasis rectus just above the umbilicus, unchanged with prior exam. CT/CT chest abdpel w/*[id number] IMPRESSION: Stable appearance of the chest with prior exam of 06/18/2023 without significant change. Chronic changes as noted above. IMPRESSION: 1. Stable appearance with prior exam 10/23/2022 and without significant change or acute findings. 2. Chronic changes as noted above.
[2023-11-26 11:15] LABS: Blood Urea Nitrogen 16 mg/dL (8-23); Glomerular Filtration Rate 73.9 mL/min (90-130)
[2023-11-26] MEDS: iohexol 350 mg/mL 500 mL Btl (per mL) PO (11:32)
[2023-11-26] MEDS: iohexol 350 mg/mL 500 mL Btl (per mL) IV (11:32)
== END 2023-11-26 09:49 | disposition home or self-care (01) ==
LOC: RAD 09:49
PROVIDERS: PCP Internal Medicine Medical Oncology; Visit Provider Internal Medicine
DX: C20 Malignant neoplasm of rectum (principal); Z90.89 Acquired absence of other organs; K76.89 Other specified diseases of liver; Z90.49 Acquired absence of other specified parts of digestive tract; Q61.02 Congenital multiple renal cysts; I70.8 Atherosclerosis of other arteries; N32.89 Other specified disorders of bladder; N42.0 Calculus of prostate
CPT/HCPCS: 71260; 74177; 82565; 84520; Q9967

== ENCOUNTER 2023-12-27 09:25 | Oncology outpatient (recurring) (ONCR) | payer MEDICARE, OTHER, SELFPAY ==
[2023-12-27 09:45] LABS: Basophils # 0.1 10^3/uL (0.0-0.1); Basophils % 1.6 %; Eosinophils # 0.6 10^3/uL (0.0-0.8); Eosinophils % 11.8 %; Lymphocytes # 1.3 10^3/uL (0.8-4.8); Lymphocytes % 26.3 %; Mean Corpuscular HGB Conc 34.1 g/dL (30-55); Mean Corpuscular Hemoglobin 30.6 pg (27-33); Mean Corpuscular Volume 89.8 fl (82-101); Mean Platelet Volume 10.3 fL (7.4-10.4); Monocytes # 0.5 10^3/uL (0.2-0.9); Monocytes % 9.4 %; Neutrophils # 2.49 10^3/uL (1.8-7.7); Neutrophils % 50.7 %; Nucleated Red Blood Cells % 0 %; Platelet Count 237 10^3/cmm (157-399); Red Blood Count 4.12 10^6/uL (3.85-5.65); Red Cell Distribution Width 11.9 % (12.1-15.1); White Blood Count 4.91 10^3/uL (3.29-11.43)
[2023-12-27 10:06] LABS: Alanine Aminotransferase 9 U/L (0-41); Albumin Level 3.8 g/dL (3.5-5.2); Alkaline Phosphatase 115 U/L (40-130); Anion Gap 15.9 (5-19); Aspartate Amino Transferase 11 U/L (0-40); Blood Urea Nitrogen 19 mg/dL (8-23); Calcium 8.2 mg/dL (8.5-10.5); Carbon Dioxide 21 mmol/L (22-29); Chloride 104 mmol/L (98-107); Globulin 2.7 g/dL (1.3-4.6); Glomerular Filtration Rate 66.2 mL/min (90-130); Glucose 140 mg/dL (65-115); Osmolality Calculated 289 mOsm/kg (285-295); Potassium 3.9 mmol/L (3.5-5.1); Sodium 137 mmol/L (136-145); Total Bilirubin 0.4 mg/dL (0.15-1.2); Total Protein 6.5 g/dL (6.6-8.7)
[2023-12-27 10:15] LABS: Carcinoembryonic Antigen 3.1 ng/mL (0.0-4.7)
== END 2024-01-09 23:59 | disposition home or self-care (01) ==
PROVIDERS: Internal Medicine; Nurse Practitioner Family; PCP Internal Medicine Medical Oncology; Visit Provider Internal Medicine Medical Oncology
DX: C20 Malignant neoplasm of rectum (principal); C78.02 Secondary malignant neoplasm of left lung
CPT/HCPCS: 36591; 80053; 82378; 85025; 99214

== ENCOUNTER 2024-01-25 08:56 | Oncology outpatient (recurring) (ONCR) | payer MEDICARE, OTHER, SELFPAY | END 2024-02-09 23:59 | disposition home or self-care (01) | LOC: ONCMED 08:57 | PROVIDERS: PCP Internal Medicine Medical Oncology; Visit Provider Internal Medicine Medical Oncology | DX: Z45.2 Encounter for adjustment and management of vascular access device | CPT/HCPCS: 96523 ==

== ENCOUNTER 2024-03-04 13:15 | Oncology outpatient (recurring) (ONCR) | payer MEDICARE, OTHER, SELFPAY ==
[2024-02-27] MEDS: iohexol 350 mg/mL 500 mL Btl (per mL) PO (08:29)
--- NOTE | 2024-02-27 08:30 | CT_ITS ---
WS: [id number] CT CHEST, ABDOMEN AND PELVIS WITH CONTRAST HISTORY: Surveillance, colon cancer, liver and lung cancer. TECHNIQUE: Contiguous 5 mm axial imaging performed through the chest, abdomen and pelvis with IV cont rast, oral contrast has been provided. Coronal and sagittal reformats chest. Coronal and sagittal ref ormats through the abdomen and pelvis. All CT scans at [facility] use at least one of these d ose optimization techniques: automated exposure control; mA and/or kV adjustment per patient size (in cludes targeted exams where dose is matched to clinical indication); or iterative reconstruction. CONTRAST: Omnipaque 350; 100 mL IV. DLP: 1087.33 mGy.cm COMPARISON: 11/26/2023, 10/23/2022, PET/CT 11/18/[address]: Mild volume loss LEFT lung due to partial lobectomy. Postsurgical scarring is reidentified. There is a soft tissue nodule measuring 10 x 9 mm along the postoperative scar site which appears ju st slightly more prominent than on the prior study. There are a few scattered noncalcified and calcif ied pulmonary nodules which have been present on prior examinations. No new or enlarging pulmonary no dule. Small mediastinal and hilar lymph nodes are reidentified. No progression of lymph node number o r size. Mild atherosclerosis aorta. Normal size pulmonary artery. No pericardial or pleural effusions. LEFT s ubclavian Port-A-Cath. Abdomen CT: Partial LEFT hepatectomy. No change in the low-attenuation hepatic nodule measuring 13 x 12 mm with adjacent calcification. Portal vein is patent. No metastatic lesions are identified. Prior cholecystectomy. No bile duct dilatation. Normal pancreas and spleen. No adrenal mass. Kidneys are normal size and enhance normally with areas of scarring and cortical thinning. There are scattered too small to characterize hypodensities within each kidney. Normal-appearing stomach. No small bowel obstruction. Rectal surgical anastomosis is stable with no r ecurrent mass. Pelvic CT: No free fluid or adenopathy. Negative urinary bladder. No destructive bone lesions. Advanced facet joint arthropathy in the lumbar spine. CT/CT chest abdpel w/*[id number] IMPRESSION: 1. Very slight increase in the soft tissue nodule associated with the postoper ative site LEFT upper lobe. Nodule measures 10 x 9 mm. Early recurrence not exc luded. Recommend 3-month chest CT follow-up with IV contrast. 2. The mediastinal and hilar lymph nodes are stable. 3. Stable LEFT hepatectomy. 4. Prior cholecystectomy. 5. Stable rectal anastomosis. No recurrent mass or adenopathy.
[2024-02-27] MEDS: iohexol 350 mg/mL 500 mL Btl (per mL) IV (09:27)
[2024-02-27 09:30] LABS: Blood Urea Nitrogen 20 mg/dL (8-23); Glomerular Filtration Rate 54.6 mL/min (90-130)
[2024-03-04 13:28] LABS: Basophils # 0.1 10^3/uL (0.0-0.1); Basophils % 1.5 %; Eosinophils # 0.6 10^3/uL (0.0-0.8); Eosinophils % 8.2 %; Hematocrit 41.2 % (37-53); Lymphocytes # 2.2 10^3/uL (0.8-4.8); Lymphocytes % 27.8 %; Mean Corpuscular HGB Conc 34.7 g/dL (30-55); Mean Corpuscular Volume 89.4 fl (82-101); Mean Platelet Volume 10.5 fL (7.4-10.4); Monocytes # 0.6 10^3/uL (0.2-0.9); Monocytes % 8.1 %; Neutrophils # 4.22 10^3/uL (1.8-7.7); Neutrophils % 54.1 %; Nucleated Red Blood Cells % 0 %; Platelet Count 210 10^3/cmm (157-399); Red Blood Count 4.61 10^6/uL (3.85-5.65); Red Cell Distribution Width 12.7 % (12.1-15.1)
[2024-03-04 14:06] LABS: Alanine Aminotransferase 10 U/L (0-41); Albumin Level 3.9 g/dL (3.5-5.2); Alkaline Phosphatase 117 U/L (40-130); Aspartate Amino Transferase 12 U/L (0-40); Blood Urea Nitrogen 14 mg/dL (8-23); Calcium 8.5 mg/dL (8.5-10.5); Carbon Dioxide 22 mmol/L (22-29); Chloride 101 mmol/L (98-107); Globulin 2.6 g/dL (1.3-4.6); Glomerular Filtration Rate 73.9 mL/min (90-130); Glucose 82 mg/dL (65-115); Osmolality Calculated 278 mOsm/kg (285-295); Sodium 134 mmol/L (136-145); Total Bilirubin 0.4 mg/dL (0.15-1.2); Total Protein 6.5 g/dL (6.6-8.7)
== END 2024-03-10 23:59 | disposition home or self-care (01) ==
PROVIDERS: PCP Internal Medicine Medical Oncology; Visit Provider Nurse Practitioner Family
DX: Z53.9 Procedure and treatment not carried out, unspecified reason (principal); R91.1 Solitary pulmonary nodule; Z90.49 Acquired absence of other specified parts of digestive tract; C20 Malignant neoplasm of rectum
CPT/HCPCS: 36591; 71260; 74177; 80053; 82378; 82565; 84520; 85025; 99214

== ENCOUNTER 2024-03-25 08:56 | Oncology outpatient (recurring) (ONCR) | payer MEDICARE, OTHER, SELFPAY ==
--- NOTE | 2024-03-14 09:00 | PETR_ITS ---
PROCEDURE INFORMATION: Exam: PET/CT Skull Base to Mid-thigh Exam date and time: 03/14/2024 9:59 AM Age: 68 years old Clinical indication: Condition or disease; Primary cancer: Rectum and lung; Follow-up oncological assessment; Condition/disease: Rectum lung; Prior surgery; Surgery date: 6+ months; Surgery type: Port, liver, left lung, colo/rectal; Additional info: Further evaluation of soft tissue nodule left upper lobe LABS AND CLINICAL REPORTS: Glucose: 109 mg/dl Treatment strategy for malignancy (PET staging): Restaging (PS) TECHNIQUE: Imaging protocol: Following at least four-hour fasting and following the injection of radiopharmaceutical, low dose CT images were obtained. Then, PET images were obtained. Attenuation corrected images were constructed using the CT scan. Fused images of PET and CT were reviewed. The standardized uptake values (SUV) reported below are maximum values within a region of interest, expressed in gm/ml. Exam includes orbital meatal line to mid-thigh. Radiopharmaceutical: 10.31 mCi F-18 FDG (Fluorodeoxyglucose), IV. Time of imaging post radiopharmaceutical administration: 1 hour Injection site: RAC. COM[id number] 11/18/2022 1:28 PM FINDINGS: Brain: Visualized brain has normal physiologic uptake. Pharynx: No abnormal uptake. Larynx: No abnormal uptake. Lungs, pleura and trachea: FDG uptake involving the area of scarring in the left upper lobe is similar to background with SUV max 2.9. Scattered calcified granulomas in the lungs. Additional small scattered pulmonary nodules appear stable and do not have increased FDG uptake. Heart: Normal physiologic uptake. Mediastinal space: No abnormal uptake. Liver: SUV max of liver is 4.3. Postsurgical changes of left hepatectomy. Gallbladder and biliary ducts: Cholecystectomy. Pancreas: No abnormal uptake. Spleen: No abnormal uptake. Adrenal glands: No abnormal uptake. Kidneys and ureters: Normal physiologic uptake. Stomach and bowel: No abnormal uptake. Vasculature: No abnormal uptake. Lymph nodes: Hypermetabolic right hilar lymph node has SUV max 7.0. Skeleton: No abnormal uptake in the visualized axial and appendicular skeleton. Soft tissues: Sebaceous cyst within the soft tissues of the upper thoracic region. Other findings: SUV max of blood pool is 3.1. PET/PET skull to thigh SUBS [id number] IMPRESSION: 1. Hypermetabolic right hilar lymph node may reflect a site of metastatic disease. 2. No other definite sites of FDG avid metastatic disease.
== END 2024-04-10 23:59 | disposition home or self-care (01) ==
PROVIDERS: PCP Internal Medicine Medical Oncology; Visit Provider Nurse Practitioner Family
DX: C78.02 Secondary malignant neoplasm of left lung (principal); C20 Malignant neoplasm of rectum; R59.0 Localized enlarged lymph nodes
CPT/HCPCS: 78815; 99214; A9552

== ENCOUNTER 2024-04-22 13:19 | Oncology outpatient (recurring) (ONCR) | payer MEDICARE, OTHER, SELFPAY | END 2024-05-10 23:59 | disposition home or self-care (01) | LOC: ONCMED 13:20 | PROVIDERS: PCP Internal Medicine Medical Oncology; Visit Provider Nurse Practitioner Family | DX: Z45.2 Encounter for adjustment and management of vascular access device | CPT/HCPCS: 96523 ==

== ENCOUNTER 2024-05-20 14:23 | Oncology outpatient (recurring) (ONCR) | payer MEDICARE, OTHER, SELFPAY ==
[2024-05-20] MEDS: flu vacc pf 24-25 (6 mos+) SYRINGE 45 MCG IM (15:40)
== END 2024-06-10 23:59 | disposition home or self-care (01) ==
PROVIDERS: PCP Internal Medicine Medical Oncology; Visit Provider Nurse Practitioner Family
DX: Z45.2 Encounter for adjustment and management of vascular access device (principal); Z23 Encounter for immunization
CPT/HCPCS: 90471; 90686; 96523

== ENCOUNTER 2024-07-03 08:30 | Oncology outpatient (recurring) (ONCR) | payer MEDICARE, SELFPAY ==
[2024-06-19 13:19] LABS: Basophils # 0.1 10^3/uL (0.0-0.1); Basophils % 1.9 %; Eosinophils # 0.3 10^3/uL (0.0-0.8); Eosinophils % 4.8 %; Hematocrit 42.9 % (37-53); Lymphocytes # 1.8 10^3/uL (0.8-4.8); Lymphocytes % 29.4 %; Mean Corpuscular HGB Conc 34.5 g/dL (30-55); Mean Corpuscular Hemoglobin 31.6 pg (27-33); Mean Corpuscular Volume 91.5 fl (82-101); Mean Platelet Volume 10.1 fL (7.4-10.4); Monocytes # 0.6 10^3/uL (0.2-0.9); Neutrophils % 54.6 %; Nucleated Red Blood Cells % 0 %; Platelet Count 201 10^3/cmm (157-399); Red Blood Count 4.69 10^6/uL (3.85-5.65); Red Cell Distribution Width 12.9 % (12.1-15.1); White Blood Count 6.23 10^3/uL (3.29-11.43)
[2024-06-19 13:39] LABS: Alanine Aminotransferase 11 U/L (0-41); Albumin Level 3.9 g/dL (3.5-5.2); Alkaline Phosphatase 117 U/L (40-130); Anion Gap 14.2 (5-19); Aspartate Amino Transferase 14 U/L (0-40); Blood Urea Nitrogen 17 mg/dL (8-23); Calcium 8.3 mg/dL (8.5-10.5); Carbon Dioxide 23 mmol/L (22-29); Chloride 104 mmol/L (98-107); Creatinine Clr Calc Pharmacy 75.7574; Globulin 2.7 g/dL (1.3-4.6); Glucose 87 mg/dL (65-115); Lactate Dehydrogenase 176 U/L (135-225); Osmolality Calculated 285 mOsm/kg (285-295); Potassium 4.2 mmol/L (3.5-5.1); Sodium 137 mmol/L (136-145); Total Bilirubin 0.5 mg/dL (0.15-1.2); Total Protein 6.6 g/dL (6.6-8.7)
--- NOTE | 2024-07-03 07:25 | CTR_ITS ---
PROCEDURE INFORMATION: Exam: CT Chest With Contrast; Diagnostic Exam date and time: 07/03/2024 8:31 AM Age: 69 years old Clinical indication: Condition or disease; Other: Rectal cancer with lung metastases; Prior surgery; Surgery date: 6+ months; Surgery type: Colon, gb, left lung, liver, port; Patient HX: Colorectal, lung, liver cancer TECHNIQUE: Imaging protocol: Diagnostic computed tomography of the chest with contrast. Radiation optimization: All CT scans at this facility use at least one of these dose optimization techniques: automated exposure control; mA and/or kV adjustment per patient size (includes targeted exams where dose is matched to clinical indication); or iterative reconstruction. Contrast material: OMNI 350; Contrast volume: 100 ml; Contrast route: INTRAVENOUS (IV); COMPARISON: PT PET skull to thigh SUBS [id number] 03/14/2024 9:59 AM RADIATION DOSE METRICS: Total DLP (mGy-cm): 1183.61 FINDINGS: Tubes, catheters and devices: There is a left subclavian approach MediPort. There is a moderate volume of extravasated IV contrast surrounding the MediPort. Lungs: Stable bandlike scar tissue in the left upper lobe without major interval change from the prior exam. Stable old calcified granulomas in each lung. Stable small noncalcified nodules in the right middle lobe and right upper lobe, unchanged from prior imaging. Pleural spaces: Stable linear calcifications in the inferior aspect of the right major pleura. No pleural effusions. Heart: The heart is normal in size. Lymph nodes: There are stable small mediastinal lymph nodes. Vasculature: Unremarkable. No aortic aneurysm. Bones/joints: Surgical rib defects posteriorly on the left. No acute osseous lesions. Stable multilevel chronic degenerative changes throughout the visualized spine. Soft tissues: Unremarkable. PROCEDURE INFORMATION: Exam: CT Abdomen And Pelvis With Contrast Exam date and time: 07/03/2024 8:31 AM Age: 69 years old Clinical indication: Condition or disease; Other: Rectal cancer with lung metastases; Prior surgery; Surgery date: 6+ months; Surgery type: Colon, gb, left lung, liver, port; Patient HX: Colorectal, lung, liver cancer TECHNIQUE: Imaging protocol: Computed tomography of the abdomen and pelvis with contrast. Radiation optimization: All CT scans at this facility use at least one of these dose optimization techniques: automated exposure control; mA and/or kV adjustment per patient size (includes targeted exams where dose is matched to clinical indication); or iterative reconstruction. Contrast material: OMNI 350; Contrast volume: 100 ml; Contrast route: INTRAVENOUS (IV); COMPARISON: PT PET skull to thigh SUBS [id number] 03/14/2024 9:59 AM RADIATION DOSE METRICS: Total DLP (mGy-cm): 1183.61 FINDINGS: Liver: Stable postsurgical changes status post left hepatectomy. Stable 13 mm hypodense lesion with adjacent calcifications in the anterior right lobe of the liver. Gallbladder and biliary ducts: Cholecystectomy. Pancreas: The pancreas is normal in appearance. No evidence of pancreatic ductal dilatation. Spleen: The spleen is normal in appearance. Adrenal glands: The adrenal glands are normal in appearance. Kidneys and ureters: No evidence of hydronephrosis or nephroureteral calculi on either side. There are stable small renal cysts and areas of renal cortical scarring. Stomach and bowel: The small bowel loops are not thickened and are nondilated. There is colonic diverticulosis but no evidence of diverticulitis. The surgical anastomosis of the level of the rectum is unremarkable. No recurrent mass at the anastomosis site. Appendix: No evidence of appendicitis. Intraperitoneal space: Unremarkable. No free air. No significant fluid collection. Vasculature: Unremarkable. No abdominal aortic aneurysm. Lymph nodes: Unremarkable. No enlarged lymph nodes. Urinary bladder: The urinary bladder is normal in appearance. Reproductive: Unremarkable as visualized. Bones/joints: No acute osseous lesions. There are stable chronic degenerative changes throughout the visualized spine. Soft tissues: Unremarkable. CT/CT chest abdpel w/*[id number] IMPRESSION: 1. There is a moderate volume of extravasated IV contrast surrounding the left upper chest MediPort. 2. Stable bandlike scar in the left upper lung. 3. Stable old calcified granulomas and stable small noncalcified nodules in the right middle lobe and right upper lobe. 4. Stable small mediastinal lymph nodes. IMPRESSION: 1. Stable postsurgical changes status post left hepatectomy and stable 13 mm PET negative hypodense lesion in the right lobe of the liver. 2. Colonic diverticulosis but no evidence of diverticulitis. 3. Stable surgical anastomosis of the rectum. No recurrent mass lesion is identified.
[2024-07-03] MEDS: iohexol 350 mg/mL 500 mL Btl (per mL) PO (08:07)
[2024-07-03] MEDS: iohexol 350 mg/mL 500 mL Btl (per mL) IV (08:40)
--- NOTE | 2024-07-03 14:12 | IR_ITS ---
WS: [id number] Injection of infusion port with contrast material, 07/03/2024 Clinical Data: PORT Comparison: None. Findings: Approximately 5 mL of iodinated contrast were injected into the infusion port which was overlying the left upper lateral chest. The contrast material flowed without obstruction through the port. The por t was located in the left subclavian vein and ended in the superior vena cava. There is no evidence o f any obstruction or formation of thrombosis. IR/[place] [id number] Impression: Normal injection of the left infusion port with iodinated contrast.
--- NOTE | 2024-07-03 15:51 | PC.NURSE ---
At 0900- After edema noted post Ct scan upon return for deaccess, a new port needle placed and no blood is noted. Edema is about 10cm region surrounding port area prior to having flow study done. Area assessed per ANGEL Lucio. Moist warm compress applied this morning until patient was taken to flow study this afternoon. - Shannan Griffin 7264-Patient reports back to infusion post port flow study done at [facility]. Reports it is determined that port is functioning normally without leaks. Port is flushed per protocol and deaccessed. Pressure bandage of gauze/ bandaid applied. Patient continues to have swelling from CT scan dye this morning around port, reasoning for ordered flow study.Area has decreased in inflammation to about 6cm region, area is soft, and small amount of serous- clear drainage from port region after deaccess. Patient tolerated well. Patient verbalized complications to report and to keep area clean and dry. He will follow up in 4 weeks for port flush/assessment. - Griffin RN
== END 2024-07-11 23:59 | disposition home or self-care (01) ==
LOC: RAD 07-04 → ONCMED 07-04 08:12
PROVIDERS: PCP Internal Medicine Medical Oncology; Visit Provider Internal Medicine Hematology & Oncology
DX: Z53.9 Procedure and treatment not carried out, unspecified reason; C20 Malignant neoplasm of rectum; Z95.828 Presence of other vascular implants and grafts; K57.90 Diverticulosis of intestine, part unspecified, without perforation or abscess without bleeding; K63.89 Other specified diseases of intestine; Z90.89 Acquired absence of other organs; J98.4 Other disorders of lung
CPT/HCPCS: 36591; 36598; 71260; 74177; 80053; 83615; 85025; 99214; Q9966

== ENCOUNTER 2024-08-07 09:30 | Oncology outpatient (recurring) (ONCR) | payer MEDICARE, SELFPAY | END 2024-08-08 23:59 | disposition home or self-care (01) | LOC: ONCMED 09:30 | PROVIDERS: PCP Internal Medicine Medical Oncology; Visit Provider Internal Medicine Hematology & Oncology | DX: Z45.2 Encounter for adjustment and management of vascular access device (principal) | CPT/HCPCS: 96523 ==

== ENCOUNTER 2024-09-10 09:19 | Oncology outpatient (recurring) (ONCR) | payer MEDICARE, SELFPAY ==
[2024-09-10 09:32] LABS: Basophils # 0.1 10^3/uL (0.0-0.1); Basophils % 1.1 %; Eosinophils # 0.2 10^3/uL (0.0-0.8); Eosinophils % 3.5 %; Hematocrit 42.5 % (37-53); Lymphocytes # 1.3 10^3/uL (0.8-4.8); Lymphocytes % 20.4 %; Mean Corpuscular HGB Conc 33.9 g/dL (30-55); Mean Corpuscular Hemoglobin 30.9 pg (27-33); Mean Corpuscular Volume 91.2 fl (82-101); Mean Platelet Volume 9.8 fL (7.4-10.4); Monocytes # 0.3 10^3/uL (0.2-0.9); Monocytes % 5.3 %; Neutrophils # 4.36 10^3/uL (1.8-7.7); Neutrophils % 69.4 %; Nucleated Red Blood Cells % 0 %; Platelet Count 233 10^3/cmm (157-399); Red Blood Count 4.66 10^6/uL (3.85-5.65); Red Cell Distribution Width 12.2 % (12.1-15.1); White Blood Count 6.28 10^3/uL (3.29-11.43)
[2024-09-10 10:11] LABS: Alanine Aminotransferase 11 U/L (0-41); Albumin Level 3.9 g/dL (3.5-5.2); Alkaline Phosphatase 103 U/L (40-130); Anion Gap 14.2 (5-19); Aspartate Amino Transferase 11 U/L (0-40); Blood Urea Nitrogen 19 mg/dL (8-23); Carbon Dioxide 23 mmol/L (22-29); Chloride 102 mmol/L (98-107); Creatinine Clr Calc Pharmacy 68.7913; Globulin 3.3 g/dL (1.3-4.6); Glucose 145 mg/dL (65-115); Lactate Dehydrogenase 157 U/L (135-225); Osmolality Calculated 285 mOsm/kg (285-295); Potassium 4.2 mmol/L (3.5-5.1); Sodium 135 mmol/L (136-145); Total Bilirubin 0.4 mg/dL (0.15-1.2); Total Protein 7.2 g/dL (6.6-8.7)
== END 2024-10-08 23:59 | disposition home or self-care (01) ==
PROVIDERS: Visit Provider Internal Medicine
DX: Z08 Encounter for follow-up examination after completed treatment for malignant neoplasm (principal); Z85.048 Personal history of other malignant neoplasm of rectum, rectosigmoid junction, and anus; Z85.118 Personal history of other malignant neoplasm of bronchus and lung; Z85.05 Personal history of malignant neoplasm of liver; Z95.828 Presence of other vascular implants and grafts
CPT/HCPCS: 36591; 80053; 82378; 83615; 85025; 99213

== ENCOUNTER 2024-10-21 13:45 | Oncology outpatient (recurring) (ONCR) | payer MEDICARE, OTHER, SELFPAY ==
--- NOTE | 2024-10-20 09:45 | CTR_ITS ---
PROCEDURE INFORMATION: Exam: CT Chest With Contrast; Diagnostic Exam date and time: 10/20/2024 11:37 AM Age: 69 years old Clinical indication: Condition or disease; Liver condition; Other: Adenocarcinoma of liver; Primary cancer: Liver, lung; Prior surgery; Surgery date: 6+ months; Surgery type: Port, livr, colon, gb, left lung TECHNIQUE: Imaging protocol: Diagnostic computed tomography of the chest with contrast. Radiation optimization: All CT scans at this facility use at least one of these dose optimization techniques: automated exposure control; mA and/or kV adjustment per patient size (includes targeted exams where dose is matched to clinical indication); or iterative reconstruction. Contrast material: OMNI 350; Contrast volume: 100 ml; Contrast route: INTRAVENOUS (IV); COMPARISON: CT chest abdpel w/*[id number] 07/03/2024 8:31 AM RADIATION DOSE METRICS: Total DLP (mGy-cm): 1139.86 FINDINGS: Tubes, catheters and devices: Left subclavian jonn catheter is again seen. Trachea: Unremarkable. Lungs: Stable bandlike density is again seen in the left upper lobe, not significantly changed, compatible with parenchymal scar. Mild parenchymal scar is again seen at the lung bases bilaterally. Several small calcified granulomata are again seen bilaterally, not significantly changed. Small 4-5 mm noncalcified nodules are again seen in the right middle lobe and anterior right upper lobe, stable. No new nodules are seen. Pleural spaces: No significant pleural effusion. No pneumothorax. Heart: Normal in size. No significant pericardial effusion. Coronary arteries: No significant atherosclerotic calcification. Mediastinal space: No pathologically enlarged lymph nodes. Lymph nodes: Unremarkable. No enlarged lymph nodes. Vasculature: The thoracic aorta is normal in caliber. No significant atherosclerotic calcification. No aortic aneurysm. Bones/joints: Intact. No acute fracture. There is mild dextroscoliosis of the thoracic spine. Diffuse degenerative changes are noted. Soft tissues: Unremarkable. Other findings: None. PROCEDURE INFORMATION: Exam: CT Abdomen And Pelvis With Contrast Exam date and time: 10/20/2024 11:37 AM Age: 69 years old Clinical indication: Condition or disease; Liver condition; Other: Adenocarcinoma of liver; Primary cancer: Liver, lung; Prior surgery; Surgery date: 6+ months; Surgery type: Port, livr, colon, gb, left lung TECHNIQUE: Imaging protocol: Computed tomography of the abdomen and pelvis with contrast. Radiation optimization: All CT scans at this facility use at least one of these dose optimization techniques: automated exposure control; mA and/or kV adjustment per patient size (includes targeted exams where dose is matched to clinical indication); or iterative reconstruction. Contrast material: OMNI 350; Contrast volume: 100 ml; Contrast route: INTRAVENOUS (IV); COMPARISON: PT PET skull to thigh SUBS [id number] 03/14/2024 9:59 AM RADIATION DOSE METRICS: Total DLP (mGy-cm): 1139.86 FINDINGS: Lungs: Visualized lung bases are clear. Liver: Postsurgical changes related to left hepatectomy. Small 13 mm hypodense nodule with peripheral calcifications in the anterior right hepatic lobe, not significantly changed. No new lesion seen. Gallbladder and biliary ducts: Surgically absent. No significant biliary ductal dilatation. Pancreas: Unremarkable. Spleen: Unremarkable. Adrenal glands: Unremarkable. Kidneys and ureters: There is stable cortical scarring and small cysts bilaterally. No significant hydronephrosis. Stomach and bowel: Small and large bowel loops are normal in caliber. There are diverticula involving the descending and sigmoid colon without significant surrounding inflammation to suggest acute diverticulitis. There are postsurgical changes at the rectum with anastomotic sutures noted. There is a small supraumbilical hernia containing a loop of nondilated small bowel, similar in appearance compared to the prior study. Appendix: No evidence of appendicitis. Intraperitoneal space: No significant free fluid. No free air. Vasculature: The abdominal aorta is normal in caliber. There is mild atherosclerotic calcification. No abdominal aortic aneurysm. Lymph nodes: Unremarkable. No enlarged lymph nodes. Urinary bladder: Unremarkable as visualized. Reproductive: The prostate gland is mildly enlarged. Central calcifications are noted. Bones/joints: Intact. No acute fracture. There are degenerative changes throughout the lumbar and thoracic spine. There are degenerative changes involving the hips bilaterally. No suspicious lytic or sclerotic lesion is seen. Soft tissues: Unremarkable. CT/CT chest abdpel w/*[id number] IMPRESSION: 1. Stable bandlike scar in the left upper lobe. 2. Stable small calcified granulomata and noncalcified nodules in the right middle lobe and right upper lobe. No new nodule seen. 3. No acute findings. IMPRESSION: 1. Postsurgical changes related to left hepatectomy with stable 13 mm hypodense lesion in the right hepatic lobe. 2. Colonic diverticulosis without evidence for acute diverticulitis. 3. Stable postsurgical changes at the rectum. 4. Small supraumbilical hernia containing a loop of nondilated small bowel, not significantly changed since July 03, 2024. No associated bowel obstruction. COMMENTS: Consistent with the [employer]'s Incidental Findings Committee white paper (J Am Martha Radiol 2018): Any incidental renal lesion less than 1 cm or classified as too small to characterize, or any incidental cystic renal lesion characterized as simple-appearing, is likely benign. No follow-up imaging is recommended for these lesions per consensus recommendations based on imaging criteria.
[2024-10-20] MEDS: iohexol 350 mg/mL 500 mL Btl (per mL) PO (10:01)
[2024-10-20] MEDS: iohexol 350 mg/mL 500 mL Btl (per mL) IV (11:46)
[2024-10-21 13:37] LABS: Basophils # 0.1 10^3/uL (0.0-0.1); Basophils % 1.4 %; Eosinophils # 0.3 10^3/uL (0.0-0.8); Eosinophils % 5.2 %; Hematocrit 40.7 % (37-53); Lymphocytes # 1.9 10^3/uL (0.8-4.8); Lymphocytes % 30.6 %; Mean Corpuscular HGB Conc 34.2 g/dL (30-55); Mean Corpuscular Volume 90.8 fl (82-101); Mean Platelet Volume 10.5 fL (7.4-10.4); Monocytes # 0.6 10^3/uL (0.2-0.9); Monocytes % 9.3 %; Neutrophils # 3.39 10^3/uL (1.8-7.7); Neutrophils % 53.3 %; Nucleated Red Blood Cells % 0 %; Platelet Count 226 10^3/cmm (157-399); Red Blood Count 4.48 10^6/uL (3.85-5.65); Red Cell Distribution Width 12.6 % (12.1-15.1); White Blood Count 6.35 10^3/uL (3.29-11.43)
[2024-10-21 14:10] LABS: Carcinoembryonic Antigen 3.4 ng/mL (0.0-4.7)
[2024-10-21 14:22] LABS: Alanine Aminotransferase 12 U/L (0-41); Albumin Level 3.8 g/dL (3.5-5.2); Alkaline Phosphatase 121 U/L (40-130); Anion Gap 15.2 (5-19); Aspartate Amino Transferase 13 U/L (0-40); Blood Urea Nitrogen 12 mg/dL (8-23); Calcium 8.8 mg/dL (8.5-10.5); Carbon Dioxide 23 mmol/L (22-29); Chloride 102 mmol/L (98-107); Creatinine Clr Calc Pharmacy 68.1588; Globulin 3.2 g/dL (1.3-4.6); Glucose 91 mg/dL (65-115); Osmolality Calculated 281 mOsm/kg (285-295); Potassium 4.2 mmol/L (3.5-5.1); Sodium 136 mmol/L (136-145); Total Bilirubin 0.4 mg/dL (0.15-1.2)
== END 2024-11-08 23:59 | disposition home or self-care (01) ==
PROVIDERS: Visit Provider Internal Medicine
DX: Z53.9 Procedure and treatment not carried out, unspecified reason (principal); Z08 Encounter for follow-up examination after completed treatment for malignant neoplasm; Z85.048 Personal history of other malignant neoplasm of rectum, rectosigmoid junction, and anus; Z85.118 Personal history of other malignant neoplasm of bronchus and lung; Z85.05 Personal history of malignant neoplasm of liver; T85.698A Other mechanical complication of other specified internal prosthetic devices, implants and grafts, initial encounter; X58.XXXA Exposure to other specified factors, initial encounter; Z92.21 Personal history of antineoplastic chemotherapy; Z92.3 Personal history of irradiation
CPT/HCPCS: 36591; 71260; 74177; 80053; 82378; 85025; 99214

== ENCOUNTER 2024-11-21 15:53 | Emergency (ER) | payer MEDICARE, OTHER, SELFPAY ==
[2024-11-21 15:55] VITALS: BP 178/92; PULSE 76; RESP 18; TEMP 36.4; O2SAT 98; BMI 30.4
--- NOTE | 2024-11-21 16:03 | W.ED.ANIMALB ---
HPI - Animal Bite General: Chief Complaint: Animal Bite Stated Complaint: bite by racoon Time Seen by Provider: 11/21/24 15:59 Source: patient Mode of arrival: ambulatory Limitations: no limitations History of Present Illness: Patient is a very nice 69-year-old male presents to ED today for evaluation of a raccoon bite involving several digits of his left hand that he sustained yesterday. Patient states he had caged to the animal and was attempting to release him when the animal bit him and scratched him to his left 2nd, 3rd and 4th digits. He has noticed a small amount of swelling. No drainage or streaking. No systemic symptoms. Last tetanus is unknown. complaint: animal bite Onset (ago): day(s) (yesterday) Animal: other (Raccoon) Description of animal: wild animal Mechanism: bite and scratch Location - Extremities: Left: hand Context: provoked Associated symptoms: Reports no associated symptoms; Deny fever(s) Treatments prior to arrival: irrigation Related Data Home Medications ?Medication ?Instructions ?Recorded ?Confirmed meloxicam 7.5 mg tablet 7.5 mg PO DAILY PRN 10/22/23 10/21/24 Previous Rx's ?Medication ?Instructions ?Recorded Lactobacillus See Rx Instructions PO .COMPLEX 05/03/20 acidophilus-Bifidobac.animalis 2.5 #30 caps billion cell capsule (Daily Probiotic) nystatin 100,000 unit/gram topical 1 applic topical DAILY #30 grams 09/27/23 powder prednisone 10 mg tablets in a dose See Rx Instructions PO PER PKG DIR 11/27/23 pack #21 ea famotidine 20 mg tablet 20 mg PO BID #60 tabs 07/02/24 amlodipine 10 mg tablet 10 mg PO DAILY #90 tabs 07/03/24 metoprolol tartrate 50 mg tablet 25 mg (1/2 x 50 mg) PO Q12H #180 07/08/24 tabs amoxicillin 875 mg-potassium 1 tab PO BID #14 tabs 11/21/24 clavulanate 125 mg tablet Allergies Allergy/AdvReac Type Severity Reaction Status Date / Time No Known Drug Allergies Allergy No drug Verified 11/21/24 15:57 allergy Review of Systems Const: Denies: fever(s) Musc: Reports: extremity pain and extremity swelling; Denies: joint pain, joint swelling, joint redness or limited range of motion Skin/Breast: Denies: erythema Neuro: Denies: numbness in extremities or sensory changes PFSH ED PFSH: Medical History Rectal cancer Pulmonary nodules Gout Essential (primary) hypertension GERD (gastroesophageal reflux disease) Surgical History History of exploratory thoracotomy (12/06/22) Left thoracotomy with resection of mediastinal mass History of lung surgery (07/19/20) Left thoracoscopy with inferior segmentectomy of the lingula of the left upper lobe History of partial colectomy (02/2009) Laparoscopic low anterior resection with left hepatic lobectomy History of cataract surgery both eyes Family History Father Cancer Prostate cancer 1976 Mother Dementia Sister CAD (coronary artery disease) Other Hypertension Denies family history of Diabetes Clotting disorder Hyperlipidemia Psychiatric illness Chronic kidney disease (CKD) Suicide Anesthesia complication Bleeding disorder Lung disease Stroke Social History Smoking and tobacco/nicotine status: never used tobacco/nicotine Second hand smoke exposure: No Alcohol intake: never Substance/Drug Use: never Adopted: No Caregiver/support person: No Lives independently: Yes Household members: spouse Housing: House Marital status: Number of children: 1 service: Yes branch: [employer] Records Current occupational status: retired Do you think of yourself as: Straight/Heterosexual Current gender identity: Male Physical Exam Const: COMMON NORMALS: no acute distress, average body habitus, no limitations, healthy appearing, alert and well nourished Extremity: COMMON NORMALS: full ROM and capillary refill normal GENERAL: Yes normal exam except as noted LEFT UPPER EXTREMITY: Yes hand & digits OTHER: Multiple small bites/scratches to the distal ends of his left 2nd, 3rd, and 4th digits with mild localized edema. No erythema/cellulitis/streaking. No discharge. Full range of motion. No concern for infectious tenosynovitis. Neuro: COMMON NORMALS: moves all extremities, no focal motor deficits and no sensory deficits noted SENSORIUM/ORIENTATION: Yes alert Skin: NARRATIVE SKIN EXAM: see above Course Vital Signs: Vital signs: Vital Signs Temperature 97.5 F L 11/21/24 15:55 Pulse Rate 76 11/21/24 15:55 Respiratory Rate 18 11/21/24 15:55 Blood Pressure 178/92 11/21/24 15:55 Pulse Oximetry 98 11/21/24 15:55 Oxygen Delivery Me thod Room Air 11/21/24 15:55 MDM - Animal Bite Medical Decision Making Wounds will be irrigated. He will be started on antibiotics. Tetanus will be updated. He will start rabies PEP given the high risk animal. Wound care/infection precautions discussed. Differential Diagnosis Likely bite by animal Medical Records I reviewed the patient's medical records. No radiology studies performed this visit Discharge Plan Discharge Patient Disposition: Home Clinical Impression: Bite by animal, Need for post exposure prophylaxis for rabies Condition: Stable Prescriptions: New amoxicillin-pot clavulanate 875-125 mg tablet 1 tab PO BID Qty: 14 0RF No Action Daily Probiotic 2.5 billion cell capsule See Rx Instructions PO .COMPLEX Qty: 30 0RF Rx Instructions: 1 cap PO; meloxicam 7.5 mg tablet 7.5 mg PO DAILY PRN prednisone 10 mg tablets,dose pack See Rx Instructions PO PER PKG DIR Qty: 21 0RF Rx Instructions: PO PER PKG DIR nystatin 100,000 unit/gram powder 1 applic topical DAILY Qty: 30 2RF famotidine 20 mg tablet 20 mg PO BID Qty: 60 3RF amlodipine 10 mg tablet 10 mg PO DAILY Qty: 90 3RF metoprolol tartrate 50 mg tablet 25 mg PO Q12H Qty: 180 3RF Discharge Orders: Discharge ED (Routine); Ordered 11/21/24 Ordered By: Fatimah Riley Patient Instructions: Rabies Vaccine (By injection), Rabies Immune Globulin (By injection), Animal Bite (ED) Activity Restrictions/Additional Instructions: As we discussed, continue to keep wounds clean with warm soap and water multiple times daily. Monitor for signs of infection such as worsening pain, swelling, redness, streaking up your hand, purulent or odorous drainage, or any other concerns. Please seek medical reevaluation of these occur. You have been given a dose of antibiotics prior to discharge. Please fill your antibiotics tomorrow morning and start immediately. You have been given a schedule for the remainder of your rabies post exposure prophylaxis series to be completed through our infusion center. Print Language: Kiswahili Coding Level of Care Code ED Director Of Food And Nutrition Services for Ana Paula Chan
[2024-11-21] MEDS: amoxicillin-clav 875-125 mg Tablet 1 TAB PO (16:30)
[2024-11-21] MEDS: tetanus-dipt-pertussis 0.5 mL SDV IM (16:30)
[2024-11-21] MEDS: rabies vaccine 2.5 unit SDV IM (16:32)
[2024-11-21] MEDS: rabies IG 300 unit/mL SDV 1 mL 1800 UNIT IM (16:34)
== END 2024-11-21 16:51 | disposition home or self-care (01) ==
PROVIDERS: Emergency Provider Physician Assistant
DX: Z20.3 Contact with and (suspected) exposure to rabies (principal); W55.51XA Bitten by raccoon, initial encounter; Z29.14 Encounter for prophylactic rabies immune globulin; I10 Essential (primary) hypertension; Z85.048 Personal history of other malignant neoplasm of rectum, rectosigmoid junction, and anus
CPT/HCPCS: 90375; 90471; 90675; 90715; 96372; 99283; J9999

== ENCOUNTER 2024-12-08 15:30 | Oncology outpatient (recurring) (ONCR) | payer MEDICARE, OTHER, SELFPAY ==
[2024-11-24] MEDS: rabies vaccine 2.5 unit SDV IM (15:55)
[2024-12-01] MEDS: rabies vaccine 2.5 unit SDV IM (15:35)
[2024-12-08] MEDS: rabies vaccine 2.5 unit SDV IM (15:35)
== END 2024-12-08 23:59 | disposition home or self-care (01) ==
PROVIDERS: Visit Provider Internal Medicine Medical Oncology
DX: Z53.9 Procedure and treatment not carried out, unspecified reason (principal); Z08 Encounter for follow-up examination after completed treatment for malignant neoplasm; Z85.048 Personal history of other malignant neoplasm of rectum, rectosigmoid junction, and anus; Z85.118 Personal history of other malignant neoplasm of bronchus and lung; Z85.05 Personal history of malignant neoplasm of liver; T85.698A Other mechanical complication of other specified internal prosthetic devices, implants and grafts, initial encounter; X58.XXXA Exposure to other specified factors, initial encounter; Z92.21 Personal history of antineoplastic chemotherapy; Z92.3 Personal history of irradiation; C78.7 Secondary malignant neoplasm of liver and intrahepatic bile duct; C78.02 Secondary malignant neoplasm of left lung; C20 Malignant neoplasm of rectum; K57.90 Diverticulosis of intestine, part unspecified, without perforation or abscess without bleeding; K43.9 Ventral hernia without obstruction or gangrene; Z95.828 Presence of other vascular implants and grafts; Z45.2 Encounter for adjustment and management of vascular access device
CPT/HCPCS: 90471; 90675

== ENCOUNTER 2025-02-20 12:30 | Oncology outpatient (recurring) (ONCR) | payer MEDICARE, OTHER, SELFPAY ==
[2025-02-17 13:48] LABS: Hematocrit 42.7 % (37-53); Hemoglobin 14.80 g/dL (11.27-16.99); Mean Corpuscular HGB Conc 34.7 g/dL (30-55); Mean Corpuscular Hemoglobin 32.7 pg (27-33); Mean Corpuscular Volume 94.3 fl (82-101); Nucleated Red Blood Cells % 0 %; Platelet Count 189 10^3/cmm (157-399); Red Blood Count 4.53 10^6/uL (3.85-5.65); White Blood Count 8.62 10^3/uL (3.29-11.43)
[2025-02-17 14:03] LABS: Alanine Aminotransferase 21 U/L (0-41); Albumin Level 4.0 g/dL (3.5-5.2); Alkaline Phosphatase 118 U/L (40-130); Anion Gap 12.2 (5-19); Aspartate Amino Transferase 23 U/L (0-40); Blood Urea Nitrogen 18 mg/dL (8-23); Calcium 8.7 mg/dL (8.5-10.5); Carbon Dioxide 25 mmol/L (22-29); Chloride 105 mmol/L (98-107); Globulin 3.0 g/dL (1.3-4.6); Glucose 100 mg/dL (65-115); Osmolality Calculated 288 mOsm/kg (285-295); Potassium 4.2 mmol/L (3.5-5.1); Sodium 138 mmol/L (136-145); Total Protein 7.0 g/dL (6.6-8.7)
[2025-02-17 14:41] LABS: Carcinoembryonic Antigen 4.0 ng/mL (0.0-4.7)
[2025-02-20] MEDS: iohexol 350 mg/mL 500 mL Btl (per mL) PO (12:24)
[2025-02-20] MEDS: iohexol 350 mg/mL 500 mL Btl (per mL) IV (12:24)
--- NOTE | 2025-02-20 12:30 | CT_ITS ---
WS: [id number] CT CHEST, ABDOMEN AND PELVIS HISTORY COLORECTAL CANCER, LIVER AND LUNG CANCER. HISTORY: followup 09/20/2024 scans TECHNIQUE: Contiguous 5 mm axial imaging performed through the chest, abdomen and pelvis with IV contrast, oral contrast has been provided. Coronal and sagittal reformats chest. Coronal and sagittal reformats through the abdomen and pelvis. All CT scans at [facility] use at least one of these dose optimization techniques: automated exposure control; mA and/or kV adjustment per patient size (includes targeted exams where dose is matched to clinical indication); or iterative reconstruction. CONTRAST: Omnipaque 350; 100 mL IV. DLP: 1147.38 mGy.cm COMPARISON: 10/20/2024, 07/03/2024, PET/CT 03/14/[address]: Mild volume loss in the LEFT lung. Bandlike area of atelectasis LEFT upper lobe. There is chronic scar versus atelectasis is stable over several prior exams. Numerous calcified and noncalcified very small pulmonary nodules are identified. These nodules have been previously described. No new pulmonary nodule since at least 2021. Chronic atelectasis at the LEFT lung base. Normal size heart. Mild atherosclerosis aorta. Normal size pulmonary artery. Small stable mediastinal and hilar lymph nodes. No enlarged lymph nodes. Abdomen CT: Partial hepatectomy. Postsurgical changes along the liver resection site. Reidentified is the low-attenuation 11 mm nodule in the RIGHT lobe of the liver with adjacent calcification. Stable over multiple prior years. No intrahepatic duct dilatation. Normal portal vein. Prior cholecystectomy. Normal spleen. No adrenal mass. No renal obstruction. Small cortical cysts within each kidney. Normal pancreas. Normally distended stomach. No small bowel obstruction. Surgical changes near the rectum are stable. No recurrent mass. There is a loop of small bowel extending into the umbilical hernia. No obstruction. Mild atherosclerosis aorta. 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 Similar findings seen on prior exams. No GI tract ischemia. Few sigmoid diverticula without acute diverticulitis. No ascites. No adenopathy. Pelvic CT: Normally distended urinary bladder. No free fluid in the pelvis. Marked osteophytic ridging around the acetabulum. No destructive bone lesions. Mild increase in lumbar lordosis. CT/CT chest abdpel w/*[id number] IMPRESSION: 1. Bandlike area of atelectasis/scar in the LEFT upper lobe is stable. 2. Numerous bilateral calcified and noncalcified pulmonary nodules are stable over several years. No new mass or nodule. 3. No mediastinal or hilar adenopathy. 4. Partial hepatectomy. 5. Stable 11 mm low-attenuation nodule in the RIGHT lobe of the liver. No evid ence for metastatic disease to the liver or adrenal glands. 6. Postsurgical changes at the rectum are stable. No recurrent mass. 7. Partial, chronic mild stenosis proximal SMA. No ischemic changes in the GI tract. 8. Loop of nonobstructed small bowel extending into the umbilical hernia.
== END 2025-03-10 23:59 | disposition home or self-care (01) ==
LOC: RAD 02-21 → ONCMED 02-23 10:16
PROVIDERS: Visit Provider Nurse Practitioner
DX: C20 Malignant neoplasm of rectum; C78.02 Secondary malignant neoplasm of left lung; C78.7 Secondary malignant neoplasm of liver and intrahepatic bile duct; J98.11 Atelectasis; R91.8 Other nonspecific abnormal finding of lung field; Z98.890 Other specified postprocedural states; K76.89 Other specified diseases of liver; K55.1 Chronic vascular disorders of intestine; R93.89 Abnormal findings on diagnostic imaging of other specified body structures; K42.9 Umbilical hernia without obstruction or gangrene; I70.0 Atherosclerosis of aorta; Z90.49 Acquired absence of other specified parts of digestive tract; K57.30 Diverticulosis of large intestine without perforation or abscess without bleeding; M25.759 Osteophyte, unspecified hip; M40.46 Postural lordosis, lumbar region; Z53.9 Procedure and treatment not carried out, unspecified reason
CPT/HCPCS: 36415; 71260; 74177; 80053; 82378; 85025; 99213